=== PATIENT | female | born 2000 | race Caucasian/White ===

== ENCOUNTER 2019-10-08 14:28 | Outpatient (CLI) | payer OTHER, SELFPAY ==
--- NOTE | ~2019-10-08 | US_ITS ---
EXAMINATION: US pelvic complete w TV DATE: 10/08/2019 15:20 INDICATION: Pelvic pain Comparison:No prior studies for comparison. TECHNIQUE: Multiple transabdominal and endovaginal sonographic images of the pelvis performed. FINDINGS: The uterus measures 7.8 x 3.5 x 3.3 cm. The endometrial complex measures 1 cm. The right ovary measures 3.8 x 4 x 4.3 cm and the left ovary measures 2.6 x 2.7 x 3.6 cm. There is a right ovarian cyst measuring 2.4 cm. There are small follicles in each ovary. There is no free fluid in the pelvis. There are no abnormal masses seen on either side. IMPRESSION: 1. 2.4 cm right ovarian cyst. Reviewed, dictated and finalized at location A.
== END 2019-10-08 14:29 | disposition home or self-care (01) ==
PROVIDERS: Visit Provider Advanced Practice Midwife
DX: N83.201 Unspecified ovarian cyst, right side (principal)
CPT/HCPCS: 76830; 76856

== ENCOUNTER 2020-06-01 11:21 | Outpatient (CLI) | payer OTHER, MEDICAID, SELFPAY ==
--- NOTE | ~2020-06-01 | US_ITS ---
EXAMINATION: US OB limited w BPP DATE: 06/01/2020 12:46 INDICATION: Gestational diabetes, third trimester TECHNIQUE: Real-time pelvic ultrasound was performed. The interpreting radiologist was not present fo r the study. COMPARISON: None. FINDINGS: There is a single living fetus in vertex presentation. The placenta is anterior. heart rate is 124 beats per minute (bpm). The amniotic fluid index is 20.4 cm which is normal. Biophysical profile performed by the technologist: breathing (30 sec sustained breathing in 30 minutes): 2 out of 2 movement (3 gross body movements in 30 minutes): 2 out of 2 tone (one episode of xxyadby-wlgshikxf-bqlgsqs limb movement): 2 out of 2 Amniotic fluid pocket (2 cm): 2 out of 2 Total score: 8 out of 8 IMPRESSION: 1. Single living fetus in vertex presentation. 2. Biophysical profile 8 out of 8. 3. Normal amniotic fluid index. Reviewed, dictated and finalized at location A. ERER
[2020-06-01 13:03] VITALS: BP 109/50; PULSE 78
== END 2020-06-01 11:22 | disposition home or self-care (01) ==
LOC: ANHOBOP 11:31
PROVIDERS: PCP Family Medicine; Visit Provider Advanced Practice Midwife
DX: O24.419 Gestational diabetes mellitus in pregnancy, unspecified control (principal); Z3A.00 Weeks of gestation of pregnancy not specified
CPT/HCPCS: 59025; 76815; 76819

== ENCOUNTER 2020-06-22 12:16 | Outpatient (RCR) | payer OTHER, MEDICAID, SELFPAY ==
[2020-06-22 13:03] VITALS: BP 121/69; PULSE 85
== END 2020-07-12 07:24 | disposition home or self-care (01) ==
LOC: ANHOBOP 12:16
PROVIDERS: PCP Family Medicine; Visit Provider Obstetrics & Gynecology
DX: O24.419 Gestational diabetes mellitus in pregnancy, unspecified control (principal); Z3A.35 35 weeks gestation of pregnancy
CPT/HCPCS: 59025

== ENCOUNTER 2020-07-09 16:52 | Inpatient (IN) | payer OTHER, MEDICAID, SELFPAY ==
[2020-07-09] VITALS (11 sets, daily range): BP systolic 101–154; BP diastolic 48–91; PULSE 68–82; TEMP 36.9; BMI 43.4
--- NOTE | 2020-07-09 16:52 | LDADM ---
This patient, Yoana Ervin, was admitted to Labor/Delivery/Recovery 109 on 07/09/20 at 16:52. Plans for labor, pain management and were discussed with patient. Patient/family oriented to hospital policies and general routines including ID bracelet, bed and alarms, visiting hours, pain management, procedures, bathroom and other care routines, personal items, smoking policy, room service/diet and guest tray routines, infant security routines, and visiting hours. Patient/Family are encouraged to report perceived risks to care and to ask questions if they do not understand what they are told or what they should do. See OBIX for further documentation.
[2020-07-09 17:35] LABS: Glucose Point of Care 102 (65-105)
[2020-07-09 17:38] LABS: Basophils Percent Auto 0.2 % (0.2-1.2); Eosinophils Percent Auto 0.1 % (0-4.4); Immature Granulocyte Absolute 0.04 K/mm3 (0.00-0.031); Immature Granulocyte Percent A 0.4 % (0-0.5); Lymphocytes Absolute Auto 1.78 K/mm3 (0.9-3.2); Lymphocytes Percent Auto 17.4 % (18.3-44.2); Mean Corpuscular HGB Conc 32.4 g/dl (32-36); Mean Corpuscular Hemoglobin 24.8 pg (26-34); Mean Corpuscular Volume 76.4 fl (80-100); Mean Platelet Volume 11.5 fl (7.4-10.4); Monocytes Absolute Auto 0.5 K/mm3 (0.1-0.6); Monocytes Percent Auto 5.3 % (2.6-8.5); Neutrophils Absolute Auto 7.8 K/mm3 (1.3-6.7); Neutrophils Percent Auto 76.6 % (45.5-73.1); Platelet Count Result 199 k/mm3 (150-375); Red Blood Count 4.84 M/mm3 (4.2-5.4); White Blood Count 10.2 K/mm3 (4.5-10.0)
[2020-07-09] MEDS: DINOPROSTONE 10 MG VAG INSERT VAGINAL (17:45)
--- NOTE | 2020-07-09 17:48 | WPDANESEPP ---
Anes - Eval Pre Procedure Procedure: Labor epidural Date/Time: 07/09/20 17:48 Surgeon: John Preop Diagnosis: Abd pain with contractions Pre Op Diagnosis: IOL Patient Data Age: 19 Gender: F Height: 5 ft 4 in Weight: 115 kg Last Vital Signs Pulse 75 07/09/20 17:34 BP 154/91 H 07/09/20 17:34 Allergies Allergy/AdvReac Type Severity Reaction Status Date / Time No Known Allergies Allergy Verified 07/09/20 17:33 Home Medications Medication Instructions Recorded Confirmed Type PNV cmb#95-ferrous fumarate-FA 1 tablet PO DAILY 06/01/20 07/09/20 History [] edhyxtkijr-knfbxatlwaqwn-rjsw 1 cap PO DAILY PRN 06/01/20 07/09/20 History Laboratory Tests 07/09/20 07/09/20 07/09/20 17:11 17:11 17:11 WBC 10.2 K/mm3 H K/mm3 (4.5-10.0) RBC 4.84 M/mm3 M/mm3 (4.2-5.4) Hgb 12.0 g/dL g/dL (12.0-15.0) Hct 37.0 % % (37.0-47.0) MCV 76.4 fl L fl (80-100) MCH 24.8 pg L pg (26-34) MCHC 32.4 g/dl g/dl (32-36) RDW 14.0 % % (11.5-14.5) Plt Count 199 k/mm3 k/mm3 (150-375) MPV 11.5 fl H fl (7.4-10.4) Immature Gran % (Auto) 0.4 % % (0-0.5) Neut % (Auto) 76.6 % H % (45.5-73.1) Lymph % (Auto) 17.4 % L % (18.3-44.2) [place] % (Auto) 5.3 % % (2.6-8.5) Eos % (Auto) 0.1 % % (0-4.4) Baso % (Auto) 0.2 % % (0.2-1.2) Lymph # (Auto) 1.78 K/mm3 K/mm3 (0.9-3.2) [place] # (Auto) 0.5 K/mm3 K/mm3 (0.1-0.6) Eos # (Auto) 0.0 K/mm3 K/mm3 (0-0.3) Baso # (Auto) 0.0 K/mm3 K/mm3 (0.0-0.1) Abs Immat Gran (auto) 0.04 K/mm3 H K/mm3 (0.00-0.031) Absolute Neuts (auto) 7.8 K/mm3 H K/mm3 (1.3-6.7) Absolute Nucleated RBC 0.0 K/mm3 K/mm3 (0.0-0.012) Nucleated RBC % 0.0 % % (0.0-0.2) Sodium Potassium Chloride Carbon Dioxide Anion Gap BUN Creatinine Estim Creat Clear Calc Estimated GFR Glucose POC Capillary Glucose Uric Acid Cancelled Calcium Total Bilirubin AST ALT Alkaline Phosphatase Total Protein Albumin RPR Pending 07/09/20 07/09/20 17:11 17:25 WBC RBC Hgb Hct MCV MCH MCHC RDW Plt Count MPV Immature Gran % (Auto) Neut % (Auto) Lymph % (Auto) [place] % (Auto) Eos % (Auto) Baso % (Auto) Lymph # (Auto) [place] # (Auto) Eos # (Auto) Baso # (Auto) Abs Immat Gran (auto) Absolute Neuts (auto) Absolute Nucleated RBC Nucleated RBC % Sodium Pending Potassium Pending Chloride Pending Carbon Dioxide Pending Anion Gap Pending BUN Pending Creatinine Pending Estim Creat Clear Calc Pending Estimated GFR Pending Glucose Pending POC Capillary Glucose 102 mg/dl mg/dl (65-105) Uric Acid Pending Calcium Pending Total Bilirubin Pending AST Pending ALT Pending Alkaline Phosphatase Pending Total Protein Pending Albumin Pending RPR Patient hx anesthesia problems: none Family hx anesthesia problems: none PMFSH Past Medical History Medical History Hypertension Obesity and not yet delivered Vapes nicotine containing substance Social History Social History Years smoked: 1 Smoking status: Current every day smoker Tobacco type: e-cigarettes/vaping Substance use: never Gender identity (if verbalized by the patient):
[2020-07-09 17:51] LABS: Alanine Aminotransferase 10 U/L (4-35); Albumin Level 3.4 g/dL (3.5-5.1); Alkaline Phosphatase 173 U/L (38-126); Anion Gap 7 mmol/L (8-16); Aspartate Amino Transferase 18 U/L (14-36); Bilirubin,Total 0.3 mg/dL (0.2-1.3); Blood Urea Nitrogen 8 mg/dL (7-17); Carbon Dioxide 22 mmol/L (22-30); Chloride 107 mmol/L (98-107); Estimated CRCL calculation 185 ml/min; Estimated Glomerular Filt Rate > 60; Glucose 110 mg/dL (65-105); Potassium 3.7 mmol/L (3.4-5.0); Sodium 136 mmol/L (137-145); Uric Acid 4.1 mg/dL (2.5-7.5)
[2020-07-09 23:58] LABS: Glucose Point of Care 108 (65-105)
[2020-07-10] VITALS (198 sets, daily range): BP systolic 93–153; BP diastolic 35–98; PULSE 55–128; RESP 20; TEMP 36.3–37.2; O2SAT 94–100
[2020-07-10 05:48] LABS: Glucose Point of Care 138 (65-105)
[2020-07-10] MEDS: OXYTOCIN 30 UNITS/NS 500 ML 30 UNITS/500 ML BAG 6 UNITS IV CONT (06:23)
[2020-07-10] MEDS: LACTATED RINGERS 1,000 ML 125 ML IV CONT ×3 (06:23→19:16)
[2020-07-10 07:00] LABS: Glucose Point of Care 131 (65-105)
--- NOTE | 2020-07-10 07:57 | WPDOBADMIT ---
Obstetrics - Admit Note Admission Note: 19b y/o G1 @ 38w1d here for induction of labor for GHTN. has also been complicated by GDM which is diet controlled. Cervix 1.5/60/-2 AROM moderate amount of clear odorless fluid. record reviewed. No pertinent additions to the history and/or any subsequent changes in the physical findings that are not consistent with the expected course of the were found. Additions to the history and/or subsequent changes in the physical findings follow. None.
[2020-07-10 09:08] LABS: Glucose Point of Care 76 (65-105)
[2020-07-10 11:29] LABS: Glucose Point of Care 82 (65-105)
[2020-07-10 12:07] LABS: Rapid Plasma Reagin Non-Reactive (NonReactive)
[2020-07-10] MEDS: fentaNYL CITRATE INJ (*CRX) 100 MCG/2 ML VIAL 50 MCG IV PUSH ×2 (13:21→14:28)
[2020-07-10 13:27] LABS: Glucose Point of Care 83 (65-105)
[2020-07-10 15:45] LABS: Glucose Point of Care 68 (65-105)
[2020-07-10 17:16] LABS: Glucose Point of Care 75 (65-105)
[2020-07-10] MEDS: LORATADINE 10 MG TABLET PO (19:16)
[2020-07-10] MEDS: ACETAMINOPHEN 500 MG TABLET 1000 MG PO (19:17)
[2020-07-10] MEDS: ONDANSETRON INJ 4 MG/2 ML VIAL IV PUSH (20:31)
[2020-07-10 21:09] LABS: Glucose Point of Care 62 (65-105)
[2020-07-11] VITALS (151 sets, daily range): BP systolic 61–163; BP diastolic 37–104; PULSE 53–204; RESP 13–20; TEMP 36.5–39.1; O2SAT 93–100
[2020-07-11 01:07] LABS: Glucose Point of Care 86 (65-105)
[2020-07-11] MEDS: AMPICILLIN 2 GM/NS 100 ML 2 GM/100 ML BAG IVPB (01:39)
[2020-07-11 03:13] LABS: Glucose Point of Care 82 (65-105)
[2020-07-11] MEDS: OXYTOCIN 30 UNITS/NS 500 ML 30 UNITS/500 ML BAG 22 UNITS IV CONT (05:01)
[2020-07-11] MEDS: LACTATED RINGERS 1,000 ML 125 ML IV CONT ×2 (05:02→08:30)
[2020-07-11 05:12] LABS: Glucose Point of Care 85 (65-105)
[2020-07-11] MEDS: AMPICILLIN 1 GM/NS 50 ML 1 GM/50 ML BAG IVPB ×5 (05:35→23:03)
--- NOTE | 2020-07-11 07:24 | PM.IMHP ---
H&P: HPI History of Present Illness Date/Time: 07/11/20 07:24 Chief complaint: IOL Narrative: Yoana Ervin is a 19 year old female who was admitted for induction of labor for Gestational hypertension. has also been complicated by GDM and polyhydramnios. PMFSH Past Medical History Medical History Hypertension Obesity and not yet delivered Vapes nicotine containing substance Social History Social History Years smoked: 1 Smoking status: Current every day smoker Tobacco type: e-cigarettes/vaping Substance use: never Gender identity (if verbalized by the patient): Female Spiritual care concerns: No Meds Home Medications and Allergies Home Medications Medication Instructions Recorded Confirmed Type PNV cmb#95-ferrous fumarate-FA 1 tablet PO DAILY 06/01/20 07/09/20 History [] pgmnndnvuu-smrlbcelburje-oiox 1 cap PO DAILY PRN 06/01/20 07/09/20 History Allergies Allergy/AdvReac Type Severity Reaction Status Date / Time No Known Allergies Allergy Verified 07/09/20 17:33 Vital Signs Vital Signs - 24 hr 07/10/20 07:31 07/10/20 07:46 07/10/20 08:00 Temperature 97.4 F L Pulse Rate 67 74 Respiratory Rate Blood Pressure 141/83 H 133/73 Pulse Oximetry 07/10/20 08:01 07/10/20 08:16 07/10/20 08:31 Temperature Pulse Rate 69 67 64 Respiratory Rate Blood Pressure 134/84 147/75 H 140/81 Pulse Oximetry 07/10/20 08:46 07/10/20 09:00 07/10/20 09:17 Temperature 97.7 F Pulse Rate 66 66 Respiratory Rate Blood Pressure 147/85 H 153/80 H Pulse Oximetry 07/10/20 09:31 07/10/20 10:00 07/10/20 10:16 Temperature Pulse Rate 59 L 82 83 Respiratory Rate Blood Pressure 139/67 140/76 135/79 Pulse Oximetry 07/10/20 10:31 07/10/20 10:46 07/10/20 11:00 Temperature 97.4 F L Pulse Rate 91 82 Respiratory Rate Blood Pressure 153/98 H 148/82 H Pulse Oximetry 07/10/20 11:16 07/10/20 11:31 07/10/20 11:56 Temperature Pulse Rate 88 85 85 Respiratory Rate Blood Pressure 128/68 132/83 134/75 Pulse Oximetry 07/10/20 12:01 07/10/20 12:16 07/10/20 12:30 Temperature Pulse Rate 85 83 88 Respiratory Rate Blood Pressure 139/77 124/67 141/86 H Pulse Oximetry 07/10/20 12:46 07/10/20 13:01 07/10/20 13:16 Temperature Pulse Rate 80 98 70 Respiratory Rate Blood Pressure 148/80 H 149/81 H 134/62 Pulse Oximetry 07/10/20 13:31 07/10/20 13:46 07/10/20 14:00 Temperature 97.6 F Pulse Rate 70 72 Respiratory Rate Blood Pressure 124/59 L 130/58 L Pulse Oximetry 07/10/20 14:01 07/10/20 14:03 07/10/20 14:08 Temperature Pulse Rate 75 Respiratory Rate Blood Pressure 140/73 Pulse Oximetry 94 100 07/10/20 14:13 07/10/20 14:18 07/10/20 14:23 Temperature Pulse Rate Respiratory Rate Blood Pressure Pulse Oximetry 99 100 100 07/10/20 14:28 07/10/20 14:33 07/10/20 14:38 Temperature Pulse Rate Respiratory Rate Blood Pressure Pulse Oximetry 100 96 97 07/10/20 14:43 07/10/20 14:45 07/10/20 14:46 Temperature Pulse Rate 67 Respiratory Rate Blood Pressure 149/86 H Pulse Oximetry 97 100 07/10/20 14:50 07/10/20 14:55 07/10/20 14:59 Temperature Pulse Rate 62 64 Respiratory Rate Blood Pressure 115/55 L 134/63 Pulse Oximetry 100 99 07/10/20 15:00 07/10/20 15:01 07/10/20 15:03 Temperature 97.9 F Pulse Rate 77 85 Respiratory Rate Blood Pressure 114/62 119/57 L Pulse Oximetry 99 07/10/20 15:05 07/10/20 15:06 07/10/20 15:07 Temperature Pulse Rate 82 83 Respiratory Rate Blood Pressure 93/35 L 95/52 L Pulse Oximetry 99 98 07/10/20 15:08 07/10/20 15:10 07/10/20 15:12 Temperature Pulse Rate 72 69 92 Respiratory Rate Blood Pressure 107/52 L 104/41 L 117/59 L Pulse Oximetry 99 07/10/20 15:16 07/10/20 15:1
[2020-07-11 07:50] LABS: Glucose Point of Care 72 (65-105)
--- NOTE | 2020-07-11 08:54 | PM.OBPNVD ---
OB - PN: Subj Subjective Date/time seen: 07/11/20 08:54 Narrative: PT known to me, preg complicated by GDM and PIH. IOL 38 weeks for PIH, now FTP at 4-5 cm over many hours. Will proceed with CS. Discussed POC with patient and SO, consented after discussing RBA. OB - PN: Obj Data Labs CBC & Chem 7: 07/09/20 17:11 07/09/20 17:11 Labs: Laboratory Results - last 24 hr 07/09/20 07/10/20 07/10/20 17:11 08:57 11:15 POC Capillary Glucose 76 82 RPR Non-reactive 07/10/20 07/10/20 07/10/20 13:24 15:41 17:14 POC Capillary Glucose 83 68 75 RPR 07/10/20 07/11/20 07/11/20 21:00 01:00 03:05 POC Capillary Glucose 62 L 86 82 RPR 07/11/20 07/11/20 05:00 07:48 POC Capillary Glucose 85 72 RPR OB - PN A/P Time Spent With Patient Time: Total time spent is greater than 50% in coordination of care (as documented) at patient's floor/unit and/or counseling patient:
--- NOTE | 2020-07-11 08:55 | P.OP_ITS ---
Procedure Note - Detailed Date of procedure: 07/11/20 Pre-op diagnosis: IOL failure to progress at 38 weeks, PIH, GDM Post-op diagnosis: same Procedure performed: primary LTCS Description of procedure: see delivery note Implants: none Anesthesia: spinal Surgeon: Aisha Zepeda MD Assistant Loan Processor: see delivery record Estimated blood loss (mL): 685 Drains: No Packing: No Pathology: yes Complications: No immediate complications Condition: stable Disposition: floor
--- NOTE | 2020-07-11 08:56 | P.PCNOB_ITS ---
OB - Delivery Note Procedure Procedure: Procedures Operation Date: 07/11/20 09:00 <No data on this case meets the specified criteria> Route of delivery: Specimen: Yes (placenta) Anesthesia type: Spinal Disposition: floor Complications: none Narrative: The patient was taken to the OR and received spinal anesthesia. She was placed in dorsal supine position with left lateral tilt. SCDs and cohen were placed. She was prepped and draped in the normal sterile fashion. A Pfannensteil skin incision was made and carried through to the underlying layer of fascia. The fascia was incised in the midline and then extended laterally using Sousa scissors. The muscles were in the midline and the peritoneum was entered bluntly. The peritoneal incision was extended inferiorly and superiorly with care to avoid the bladder. The bladder blade was then inserted, the vesicouterine peritoneum was grasped, incised with Metzenbaum scissors, and a bladder flap created. The bladder blade was reinserted. A low transverse uterine incision was made with a scalpel and extended with bandage scissors. Fluid was noted to be clear. The head was delivered, followed by the remainder of the baby. The baby's oropharynx was suctioned. After 30 seconds, the cord was clamped and cut and the was handed off. Cord blood was obtained and the placenta was then removed manually. The uterus was exteriorized. A moist lap sponge was used to curette the endomet rium. The uterine incision was then closed with one layer of 0-Vicryl in a running, locking fashion. Good hemostasis was noted. The posterior cul de sac was irrigated with normal saline and cleared of all clot and debris. The uterus was returned to the abdomen. Both lateral gutters were then irrigated. The rectus muscles were inspected and found to be hemostatic. The fascia was reapproximated using 0-Vicryl in running fashion. The subcutaneous tissue was irrigated with normal saline and made hemostatic with Bovie electrocautery. The subcutaneous tissue was reapproximated with a layer of running 2-0 plain gut. The skin was then closed with 4-0 Vicryl in a subcuticular fashion. Steri strips and a bandage were applied. The uterus was evacuated. The patient tolerated the procedure very well. All counts were correct. She was taken to the recovery room in good condition. [place] Baby Weeks of gestation at delivery: 38
[2020-07-11] MEDS: ceFAZolin 2 GM/D5W 50 ML 2 GM/50 ML BAG IVPB (08:57)
--- NOTE | 2020-07-11 09:17 | PCWOUND ---
WOCN NOTE Received wound care referral in error. Spoke to day RN and she reports patient does not have any pressure wounds.
[2020-07-11] MEDS: CLINDAMYCIN 900 MG/D5W 50 ML 900 MG/50 ML PIGGYBACK 50 MG IVPB ×2 (10:59→19:50)
[2020-07-11] MEDS: KETOROLAC 30 MG/ML VIAL (*BKC) IV PUSH (11:40)
--- NOTE | 2020-07-11 12:15 | PC.NURSE ---
Patient transferred to post room #284 per stretcher from labor and delivery. Support person present. Oriented to unit, room, information board, rooming in, admission packet and security measures. Patient verbalizes understanding.
[2020-07-11] MEDS: GENTAMICIN 60 MG/50 ML NS 60 MG/50 ML BAG 100 MG IVPB ×2 (12:25→21:06)
[2020-07-11] MEDS: ACETAMINOPHEN 325 MG TABLET 650 MG PO (16:07)
[2020-07-11] MEDS: DEXTROSE 5%/0.45% SOD CHL 1,000 ML 125 ML IV CONT (17:14)
[2020-07-11] MEDS: IBUPROFEN 600 MG TABLET PO (20:37)
[2020-07-11] MEDS: HYDROcodone/acetaminophen (*CRX) 5-325 MG TABLET 1 TAB PO (22:25)
[2020-07-12] MEDS: AMPICILLIN 1 GM/NS 50 ML 1 GM/50 ML BAG IVPB ×2 (03:09→07:06)
[2020-07-12] MEDS: CLINDAMYCIN 900 MG/D5W 50 ML 900 MG/50 ML PIGGYBACK 50 MG IVPB (04:05)
[2020-07-12 05:05] VITALS: BP 115/62; PULSE 66; RESP 17; TEMP 36.5
[2020-07-12] MEDS: GENTAMICIN 60 MG/50 ML NS 60 MG/50 ML BAG 100 MG IVPB (05:08)
[2020-07-12 05:34] LABS: Basophils Percent Auto 0.2 % (0.2-1.2); Eosinophils Absolute Auto 0.1 K/mm3 (0-0.3); Eosinophils Percent Auto 0.4 % (0-4.4); Hematocrit 27.9 % (37.0-47.0); Hemoglobin 9.1 g/dL (12.0-15.0); Immature Granulocyte Absolute 0.09 K/mm3 (0.00-0.031); Immature Granulocyte Percent A 0.6 % (0-0.5); Lymphocytes Absolute Auto 2.02 K/mm3 (0.9-3.2); Lymphocytes Percent Auto 12.8 % (18.3-44.2); Mean Corpuscular HGB Conc 32.6 g/dl (32-36); Mean Corpuscular Hemoglobin 24.8 pg (26-34); Mean Platelet Volume 12.5 fl (7.4-10.4); Monocytes Percent Auto 6.5 % (2.6-8.5); Neutrophils Absolute Auto 12.6 K/mm3 (1.3-6.7); Neutrophils Percent Auto 79.5 % (45.5-73.1); Platelet Count Result 173 k/mm3 (150-375); Red Blood Count 3.67 M/mm3 (4.2-5.4); Red Cell Distribution Width 14.1 % (11.5-14.5); White Blood Count 15.8 K/mm3 (4.5-10.0)
[2020-07-12] MEDS: POLYSACCHARIDE IRON COMPLEX 150 MG CAPSULE PO ×2 (07:04→16:07)
[2020-07-12] MEDS: DOCUSATE SODIUM 100 MG CAPSULE PO ×2 (07:05→16:07)
[2020-07-12] MEDS: HYDROcodone/acetaminophen (*CRX) 10-325 MG TABLET 1 TAB PO ×3 (07:05→16:07)
[2020-07-12] MEDS: IBUPROFEN 600 MG TABLET PO ×2 (07:05→16:07)
--- NOTE | 2020-07-12 07:40 | PM.OBPNVD ---
OB - PN: Subj Subjective Date/time seen: 07/12/20 07:40 Patient comments: no complaints baby status: doing well and NICU [place] feeding status: exclusively bottle feeding Narrative: POD 1 from primary CS. Doing well. Normal lochia. Eating, ambulating, cohen out. Has voided. NO fever since intraop. On triples. OB - PN: Obj Data Labs CBC & Chem 7: 07/12/20 05:07 07/09/20 17:11 Labs: Laboratory Results - last 24 hr 07/11/20 07/12/20 07:48 05:07 WBC 15.8 H RBC 3.67 L Hgb 9.1 L Hct 27.9 L MCV 76.0 L MCH 24.8 L MCHC 32.6 RDW 14.1 Plt Count 173 MPV 12.5 H Immature Gran % (Auto) 0.6 H Neut % (Auto) 79.5 H Lymph % (Auto) 12.8 L [place] % (Auto) 6.5 Eos % (Auto) 0.4 Baso % (Auto) 0.2 Lymph # (Auto) 2.02 [place] # (Auto) 1.0 H Eos # (Auto) 0.1 Baso # (Auto) 0.0 Abs Immat Gran (auto) 0.09 H Absolute Neuts (auto) 12.6 H Absolute Nucleated RBC 0.0 Nucleated RBC % 0.0 POC Capillary Glucose 72 OB - PN A/P Plan day: 1 Plan: routine care Comments: Continue triple antibiotics until 24 hours afebrile (later this am). Wants circ, baby has partial natural circ, ped wants to eval prior to circ. May do tomorrow. Routine post op care. Time Spent With Patient Time: Total time spent is greater than 50% in coordination of care (as documented) at patient's floor/unit and/or counseling patient: Exam Narrative: Exam Narrative: NAD abdomen soft, appropriately tender, incision bandaged Extremities nontender with 1+ edema
[2020-07-12 07:45] VITALS: BP 125/67; PULSE 71; RESP 18; TEMP 36.4; O2SAT 98
[2020-07-12 12:30] VITALS: TEMP 36.6
--- NOTE | 2020-07-12 13:58 | WPDANLDPN2 ---
Anes-Prog Note L&D Date/Time: 07/12/20 13:58 Comfortable throughout: labor and delivery Neuraxial method: epidural Epidural/Spinal procedure site: clean & non-tender Neuro status: Neuro function grossly intact. Cardiovascular status: normal Respiratory status: normal Airway patency: baseline Mental status: baseline Post-Op hydration status: normal Vital Signs: Last Vital Signs Temp 36.6 C 07/12/20 12:30 Pulse 71 07/12/20 07:45 Resp 18 07/12/20 07:45 BP 125/67 07/12/20 07:45 Pulse Ox 98 07/12/20 07:45 Pain score (VAS): 0/10. Patient resting in bed at time of assessment, appears comfortable. Support person at bedside. I/O: Intake & Output 07/11/20 07/12/20 07/12/20 23:59 07:59 15:59 Intake Total 1500 2100 120 Output Total 175 4450 Balance 1325 -2350 120 Post-procedural complaints: none Patient feedback: Patient satisfied with anesthetic care.
--- NOTE | 2020-07-12 13:58 | WPDANLDNPN2 ---
Anes-Prog Note L&D-Neuraxial Date/Time: 07/12/20 13:58 Neuraxial medications: epidural PF morphine Opiod-related complaints: none Patient feedback: Patient satisfied with post-operative pain management.
[2020-07-12] MEDS: SIMETHICONE 80 MG TAB.CHEW PO (16:10)
[2020-07-12 20:16] VITALS: BP 140/87; PULSE 96; RESP 15; TEMP 36.9
[2020-07-13] MEDS: IBUPROFEN 600 MG TABLET PO ×2 (00:35→07:58)
[2020-07-13] MEDS: HYDROcodone/acetaminophen (*CRX) 10-325 MG TABLET 1 TAB PO ×2 (00:35→12:33)
--- NOTE | 2020-07-13 07:46 | P.PNOB_ITS ---
OB - PN: Subj Subjective Date/time seen: 07/13/20 07:46 Patient comments: no complaints, pain well controlled, incisional pain, tolerating diet and flatus present OB - PN: Obj Data Labs CBC & Chem 7: 07/12/20 05:07 07/09/20 17:11 OB - PN A/P Plan day: 2 Plan: routine care Comments: POD#2 LTCS - no problems, to d/c Time Spent With Patient Time: Total time spent is greater than 50% in coordination of care (as d ocumented) at patient's floor/unit and/or counseling patient: Exam Const: General: comfortable, no acute distress and alert Resp: Effort & Inspection: normal respiratory effort Auscultation: no crackles, no rales and no rhonchi Cardio: Rate: regular rate Heart sounds: no click, no murmurs and no rubs GI: Inspection: non-distended GI Palp: No Tenderness to palpation present (GI) Auscultation: normal bowel sounds Other: Incision - CDI Extrem: General: normal to inspection, no pedal edema and no calf tenderness
--- NOTE | 2020-07-13 07:48 | PM.OBDSVD ---
DS: Admitting Diagnosis Admitting Diagnosis Admitting Diagnosis: labor OB - DS: Summary OB Procedures : None OB Procedures Intrapartum: OB Procedures: : None Peripartum Data Delivery Method: Section Procedures: Procedures Operation Date: 07/11/20 09:00 Actual Procedures Side Surgeon p Section Aisha Zepeda MD complications: none Status at Discharge Functional status at discharge: independent ambulation Time Spent with Patient Time attestation: Total time spent providing and/or coordinating discharge services: Discharge Plan Discharge Patient Disposition: Home Health Service Diet: regular Patient Instructions: Antibiotic Form Stand Alone Forms: General Discharge Information Follow-up/Referrals: Xander Lopez MD [Physician] - Discharge Medications: New hydrocodone-acetaminophen 5-325 mg tablet 1 - 2 tablet PO Q4H PRN (Reason: pain) Qty: 25 RF: 0 Continued bkiololjed-hksqrsqksltzk-xmaf 50-300-40 mg capsule 1 cap PO DAILY PRN (Reason: Migraine Headache) RF: 0 PNV cmb#95-ferrous fumarate-FA [] 28 mg iron- 800 mcg Tablet 1 tablet PO DAILY RF: 0 Date of admission: 07/09/20 16:52 Primary Care Provider: MelissaMonet Admitting Provider: Xander Lopez Attending physician on admission: Xander Lopez Condition: Stable
[2020-07-13 07:50] VITALS: BP 149/82; PULSE 86; RESP 18; TEMP 36.9; O2SAT 100
[2020-07-13] MEDS: DOCUSATE SODIUM 100 MG CAPSULE PO (07:58)
[2020-07-13] MEDS: TETANUS,DIPHTHERIA,AC PERTUSSIS ADULT (0.5 ML) BOOSTRIX IM (07:58)
[2020-07-13] MEDS: POLYSACCHARIDE IRON COMPLEX 150 MG CAPSULE PO (07:58)
[2020-07-14 08:47] VITALS: BP 146/89; PULSE 82; RESP 20; TEMP 37.1; O2SAT 99
== END 2020-07-13 13:21 | disposition home or self-care (01) | DRG 787 ==
LOC: ANHLDR 07-11 08:39 → ANHOB2 07-11 12:29
PROVIDERS: Obstetrics & Gynecology; Admitting Provider Obstetrics & Gynecology; PCP Family Medicine; Visit Provider Obstetrics & Gynecology
PROC: 10D00Z1 Extraction of Products of Conception, Low, Open Approach (ICD-10-PCS; CPT 59514; principal; 2020-07-11 09:00)
DX: O13.4 Gestational [pregnancy-induced] hypertension without significant proteinuria, complicating childbirth (principal); O75.2 Pyrexia during labor, not elsewhere classified; Z37.0 Single live birth; Z3A.38 38 weeks gestation of pregnancy; Z23 Encounter for immunization; O99.214 Obesity complicating childbirth; E66.9 Obesity, unspecified; O99.334 Smoking (tobacco) complicating childbirth; F17.290 Nicotine dependence, other tobacco product, uncomplicated; O24.420 Gestational diabetes mellitus in childbirth, diet controlled; O40.3XX0 Polyhydramnios, third trimester, not applicable or unspecified; O62.2 Other uterine inertia; O61.9 Failed induction of labor, unspecified; O36.8330 Maternal care for abnormalities of the fetal heart rate or rhythm, third trimester, not applicable or unspecified
CPT/HCPCS: 36415; 80053; 84550; 85025; 86592; 86850; 86900; 86901; 90471; 90653; 90715; A9270; G0008; J0131; J0290; J0690; J1580; J1885; J2274; J2405; J2590; J2795; J3010; J7120

== ENCOUNTER 2023-01-03 10:02 | Outpatient (CLI) | payer OTHER, MEDICAID, SELFPAY ==
--- NOTE | ~2023-01-03 | CT_ITS ---
CT scan of the Neck Technique: 2.5 mm axial scans were obtained through the neck after intravenous administration of 75 c c Omnipaque 350. Coronal and sagittal reconstructions of the neck were obtained. Dose reduction techn ique was used on this scan by utilizing automated exposure control and iterative reconstruction techn ique. The dose-length product (DLP) was 596.94 mGy-cm. Clinical History: Headache, migraine Findings: There is no evidence of any significant cervical lymphadenopathy. Several small, nonenlarged jugulo- digastric and posterior cervical lymph nodes are noted bilaterally. Parapharyngeal spaces appear norm al bilaterally. The parotid and submandibular glands appear normal. The pharyngeal mucosal spaces appear normal. No soft tissue masses are seen in the neck. The thyroid gland appears normal. Images of the lung apices reveal no abnormalities. There is probabl e residual thymic tissue in the anterior mediastinum. Impression: No significant abnormalities noted. Reviewed, dictated and finalized at [facility]. Impression: No significant abnormalities noted.
== END 2023-01-03 10:03 | disposition home or self-care (01) ==
PROVIDERS: PCP Family Medicine; Visit Provider Nurse Practitioner Obstetrics & Gynecology
DX: G43.909 Migraine, unspecified, not intractable, without status migrainosus (principal)
CPT/HCPCS: 70491; Q9967

== ENCOUNTER 2023-09-16 14:49 | Emergency (ER) | payer OTHER, SELFPAY ==
[2023-09-16 15:00] VITALS: BP 140/70; PULSE 91; RESP 20; TEMP 37.4; O2SAT 100
--- NOTE | 2023-09-16 15:59 | ED.URI ---
HPI - URI/Sore Throat General Chief Complaint: Upper Respiratory Infection Stated Complaint: chest congestion/throat Time Seen by Provider: 09/16/23 15:40 Source: patient, RN notes reviewed and old records reviewed Mode of arrival: ambulatory Limitations: no limitations History of Present Illness HPI Narrative: 22 uear old female who presents to express care with complaints of 4 days of cough, chest congestion, ear pressure, sore throat with some low grade fevers. Patient reports that she is 28 weeks and has been taking Tylenol and Mucinex for her symptoms. Patient reports that she did call her OB office in regards to symptoms and was not able to be seen was told to go to PCP or go to urgent care. MD elicited complaint: cough, sore throat and other (chest congestion and ear pain/pressure) Onset (ago): day(s) (4) Pain scale (0-10): 4 Treatments prior to arrival: acetaminophen and other (Mucinex) Related Data Home Medications Medication Instructions Recorded Confirmed vit no.95-ferrous 1 tablet PO DAILY 06/01/20 09/16/23 fumarate 28 mg-folic acid 800 mcg tablet () levothyroxine 100 mcg tablet 100 mcg PO DAILY 09/16/23 09/16/23 metformin 500 mg tablet 500 mg PO HS 09/16/23 09/16/23 Allergies Allergy/AdvReac Type Severity Reaction Status Date / Time No Known Allergies Allergy Verified 07/09/20 17:33 Review of Systems Review of Systems: CONSTITUTIONAL: Reports malaise, chills, sweats, low grade fever. EYES: Denies visual changes, redness, or discharge. ENT: Reports rhinorrhea, congestion, sinus pain, left otalgia and sore throat. CARDIOVASCULAR: Denies chest pain, palpitations, or edema. RESPIRATORY: Reports cough.? Denies dyspnea. GASTROINTESTINAL: Denies abdominal pain, nausea, vomiting, diarrhea SKIN: Denies rash or itching. MUSCULOSKELETAL: Denies myalgia. NEUROLOGIC: Denies headache. All systems reviewed & are unremarkable except as noted in HPI and below PMFSH Past Medical History Medical History Gestational diabetes Hypertension Obesity and not yet delivered Vapes nicotine containing substance Social History Social History (Updated 09/18/23 @ 10:15 by Corinne Beal NP) Years smoked: 1 Smoking status: Former smoker Tobacco type: e-cigarettes/vaping Substance use: never Gender identity (if verbalized by the patient): Female Spiritual care concerns: No Comments At time of signature, agree with nursing past medical, surgical, social and family history. There is no relevant family history pertinent to the presenting complaint Exam Narrative: GENERAL: Well-appearing, well-nourished, and in no acute distress. HEAD: Normocephalic EYES: PERRLA, conjunctivae clear ENT: Nares clear, turbinates edematous and erythematous, yellowish discharge. Mucous membranes moist. Left TM red, Right. TM pearly lyn with dull light reflex bilaterally; no tragal tenderness. Oropharynx erythematous without lesions. Tonsils not enlarged and without exudate, no drooling, no hoarseness, no trismus, uvula midline.post nasal discharge NECK: Supple. No lymphadenopathy CHEST: Clear to auscultation, breath sounds equal. No wheezing, rhonchi, rales, or stridor. No respiratory distress, speaks in full sentences.cough noted SAO2 100% on room air HEART: Regular rate and rhythm. No murmur heard. SKIN: Warm, dry, no rash. NEURO: Alert and oriented x3. PSYCH: Normal mood and affect Course Course Emergency Course: Patient is aware of diagnosis, understands and agrees to treatment plan.? Anticipatory guidance given.? Patient agrees to follow-up as directed and is aware of reasons to seek care at the emergency department. Portions of this record may have been created with voice recognition software Level of Care: Express Care Visit Vital Signs Vital signs: Vital Signs Temperature 37.4 C 09/16/23 15:00 Pulse Rate 91 09/16/23 15:00
== END 2023-09-16 16:10 | disposition home or self-care (01) ==
PROVIDERS: Emergency Provider Registered Nurse; PCP Family Medicine
DX: H66.92 Otitis media, unspecified, left ear (principal); O99.891 Other specified diseases and conditions complicating pregnancy; Z3A.28 28 weeks gestation of pregnancy; Z20.822 Contact with and (suspected) exposure to COVID-19; O24.415 Gestational diabetes mellitus in pregnancy, controlled by oral hypoglycemic drugs; O16.2 Unspecified maternal hypertension, second trimester; Z87.891 Personal history of nicotine dependence
CPT/HCPCS: 87081; 87426; 87804; 87880; 99213; G0463

== ENCOUNTER 2023-10-25 10:58 | Emergency (ER) | payer OTHER, SELFPAY ==
[2023-10-25 11:05] VITALS: BP 136/77; PULSE 104; RESP 20; TEMP 36.7; O2SAT 100
--- NOTE | 2023-10-25 11:21 | ED.URI ---
HPI - URI/Sore Throat General Chief Complaint: Upper Respiratory Infection Stated Complaint: Congestion History of Present Illness HPI Narrative: Pt is a 23 y/o female, 35 weeks , presents to with 24 hour hx of ear pressure bilaterally, sinus pressure and a slight cough without associated fevers, chills, sore throat or NVDC. She has no related concerns, endorses good movement and she has no known sick contacts. She is taking Tylenol and Robitussin without relief. She denies any other complaints. Related Data Home Medications Medication Instructions Recorded Confirmed vit no.95-ferrous 1 tablet PO DAILY 06/01/20 10/25/23 fumarate 28 mg-folic acid 800 mcg tablet () levothyroxine 100 mcg tablet 100 mcg PO DAILY 09/16/23 10/25/23 metformin 500 mg tablet 500 mg PO HS 09/16/23 10/25/23 Allergies Allergy/AdvReac Type Severity Reaction Status Date / Time No Known Allergies Allergy Verified 10/25/23 11:10 Review of Systems Constitutional: Comments: no fevers or chills ENT: Comments: refer to [facility] Past Medical History Medical History Gestational diabetes Hypertension Obesity and not yet delivered Vapes nicotine containing substance Social History Social History (Updated 09/18/23 @ 10:15 by Corinne Beal NP) Years smoked: 1 Smoking status: Former smoker Tobacco type: e-cigarettes/vaping Substance use: never Gender identity (if verbalized by the patient): Female Spiritual care concerns: No Exam Const: General: healthy appearing, no acute distress and alert Nutritional Appearance: well nourished Orientation/consciousness: patient oriented x3 Limitations: no limitations HENMT: Head: normal to inspection Ears: external ears normal and TM abnormal other (tympanosclerosis bilaterally, retracted TM with serous pattern) Face and sinus: normal facial exam and sinuses nontender Throat: posterior oropharynx normal and uvula midline Eyes: Conjunctivae: conjunctivae normal Pupils: Equal, round and reactive pupils present EOM: EOMs intact bilaterally Neck: Neck: normal visual inspection Resp: Effort & Inspection: normal respiratory effort Auscultation: clear to auscultation bilaterally Cardio: Rate: regular rate (HR is 90 at PMI) Rhythm: regular rhythm GI: Auscultation: normal bowel sounds Other: gravid uterus Skin: General skin exam: normal color Rashes: no rashes Wounds: no wounds Neuro: General: patient oriented x3 and moves all extremities Cranial nerves: Yes Nystagmus not present Gait exam (Neuro): Normal gait present Extrem: General: normal to inspection Course Course Emergency Course: pt's symptoms and exam are consistent with viral URI and serous OM, will treat with short steroid course, pt monitors her blood sugars with gestational diabetes hx and she is well controlled. FU with PCP or OBGYN without fail. Pt is agreeable with plan. Level of Care: Express Care Visit ([id number]) Vital Signs Vital signs: Vital Signs Temperature 36.7 C 10/25/23 11:05 Pulse Rate 104 H 10/25/23 11:05 Respiratory Rate 20 10/25/23 11:05 Blood Pressure 136/77 10/25/23 11:05 Pulse Oximetry 100 10/25/23 11:05 Oxygen Delivery Room Air 10/25/23 11:05 Temperature 36.7 C 10/25/23 11:05 Pulse Rate 104 H 10/25/23 11:05 Respiratory Rate 20 10/25/23 11:05 Blood Pressure 136/77 10/25/23 11:05 Pulse Oximetry 100 10/25/23 11:05 Oxygen Delivery Room Air 10/25/23 11:05 MDM - URI/Sore Throat MDM Narrative Medical decision making narrative: pt's symptoms and exam are consistent with viral URI and serous OM, will treat with short steroid course, pt monitors her blood sugars with gestational diabetes hx and she is well controlled. FU with PCP or OBGYN without fail. Pt is agreeable with plan. Differential Diagnosis Differential diagnosis: Likely upper respiratory infection, otit
== END 2023-10-25 11:40 | disposition home or self-care (01) ==
PROVIDERS: Emergency Provider Nurse Practitioner Family; PCP Family Medicine
DX: O99.513 Diseases of the respiratory system complicating pregnancy, third trimester (principal); Z3A.35 35 weeks gestation of pregnancy; J06.9 Acute upper respiratory infection, unspecified; O99.891 Other specified diseases and conditions complicating pregnancy; H65.03 Acute serous otitis media, bilateral; O24.415 Gestational diabetes mellitus in pregnancy, controlled by oral hypoglycemic drugs; O99.333 Smoking (tobacco) complicating pregnancy, third trimester; F17.290 Nicotine dependence, other tobacco product, uncomplicated; O16.3 Unspecified maternal hypertension, third trimester
CPT/HCPCS: 99213; G0463

== ENCOUNTER 2023-11-22 12:09 | Outpatient (CLI) | payer OTHER, MEDICAID, SELFPAY ==
[2023-11-22 12:26] LABS: Hematocrit 32.4 % (37.0-47.0); Hemoglobin 10.1 g/dL (12.0-15.0); Mean Corpuscular HGB Conc 31.2 g/dl (32-36); Mean Corpuscular Hemoglobin 21.6 pg (26-34); Mean Corpuscular Volume 69.4 fl (80-100); Mean Platelet Volume 11.6 fl (7.4-10.4); Platelet Count Result 189 k/mm3 (150-375); Red Blood Count 4.67 M/mm3 (4.2-5.4); Red Cell Distribution Width 17.2 % (11.5-14.5); White Blood Count 9.6 K/mm3 (4.5-10.0)
[2023-11-24 14:28] LABS: Rapid Plasma Reagin Non-Reactive (NonReactive)
== END 2023-11-22 12:10 | disposition home or self-care (01) ==
LOC: ANHLAB 12:11
PROVIDERS: PCP Family Medicine; Visit Provider Obstetrics & Gynecology
DX: Z34.93 Encounter for supervision of normal pregnancy, unspecified, third trimester (principal); Z3A.00 Weeks of gestation of pregnancy not specified
CPT/HCPCS: 36415; 85027; 86592; 86850; 86900; 86901

== ENCOUNTER 2023-11-24 05:30 | Inpatient (IN) | payer OTHER, MEDICAID, SELFPAY ==
[2023-11-24] VITALS (43 sets, daily range): BP systolic 114–130; BP diastolic 59–69; PULSE 48–135; RESP 15–20; TEMP 36.4–36.8; O2SAT 92–100; BMI 39.9
--- NOTE | 2023-11-24 05:31 | LDADM ---
This patient, Yoana Ervin, was admitted to Labor/Delivery/Recovery 120 on 11/24/23 at 05:30. Plans for labor, pain management and were discussed with patient. Patient/family oriented to hospital policies and general routines including ID bracelet, bed and alarms, visiting hours, pain management, procedures, bathroom and other care routines, personal items, smoking policy, room service/diet and guest tray routines, security routines, and visiting hours. Patient/Family are encouraged to report perceived risks to care and to ask questions if they do not understand what they are told or what they should do. See OBIX for further documentation.
[2023-11-24] MEDS: ACETAMINOPHEN 500 MG TABLET 1000 MG PO (05:58)
[2023-11-24] MEDS: LACTATED RINGERS 1,000 ML 125 ML IV CONT ×2 (06:10→07:11)
[2023-11-24 06:29] LABS: Glucose Point of Care 85 mg/dl (65-105)
--- NOTE | 2023-11-24 06:50 | WPDANESEPPF ---
Anes - Initial Pre Proc Eval Procedure: Operation Date: 11/24/23 07:30 Proposed Procedures p Section - Juan Mccarthy MD Date/Time: 11/24/23 06:50 Surgeon: Juan Mccarthy MD Pre Op Diagnosis: C/S Patient Data Age: 23 Gender: F Height: 1.65 m Weight: 109 kg Last Vital Signs Pulse 69 11/24/23 06:45 BP 121/67 11/24/23 06:45 Allergies Allergy/AdvReac Type Severity Reaction Status Date / Time No Known Allergies Allergy Verified 11/18/23 12:27 Home Medications Medication Instructions Recorded Confirmed Type vit no.95-ferrous 1 tablet PO DAILY 06/01/20 11/18/23 History fumarate 28 mg-folic acid 800 mcg tablet () levothyroxine 100 mcg tablet 100 mcg PO DAILY 09/16/23 11/18/23 History metformin 500 mg tablet 1,500 mg PO HS 09/16/23 11/18/23 History Laboratory Tests 11/24/23 06:14 POC Capillary Glucose 85 mg/dl (65-105) Patient hx anesthesia problems: none Family hx anesthesia problems: none Results Review: All pre-operative results and documents have been reviewed as part of the pre-operative evaluation. [facility] Past Medical History Medical History Gestational diabetes Hypertension Obesity and not yet delivered Surgical History Surgical History (Updated 11/24/23 @ 06:50 by Edgar Lang MD) History of section Family History Family History (Updated 11/18/23 @ 12:50 by Sherrie Cintron RN) Other Unknown family medical history Social History Social History Years smoked: 10 Smoking status: Former smoker Tobacco type: e-cigarettes/vaping Substance use: never Do You Feel Safe in your Home?: Yes Lack of Transportation: No Lack of Food: Never True Current Housing: I Have Housing Concerned About Future Housing: No Difficulty Paying Gas/Electric Bills: No Difficulty Paying for Meds: No Currently Unemployed: No Education: High School Diploma/GED Difficulty w/ Childcare or Family Care: No Gender identity (if verbalized by the patient): Female Spiritual care concerns: No Anes - Eval Final PreProcedure Day of Procedure 11/24/23 06:50 Patient weight: obese Heart: regular rate and rhythm Lungs: clear to auscultation Airway: Mallampati scale class 1 Neurological: alert and oriented Last oral intake: >/= 8 hours ASA classification: II Emergent: no Anesthetic plan: proceed Anesthesia type and monitoring: regional spinal and standard monitoring Results Review: All pre-operative results and documents have been reviewed as part of the pre-operative evaluation. Informed Consent: The patient's anesthetic plan and its attendant risks and benefits were discussed with the patient/family/POA. Questions were solicited and answers provided to the satisfaction of the patient/family/POA.
[2023-11-24] MEDS: FAMOTIDINE 20 MG/2 ML VIAL IV PUSH (07:19)
[2023-11-24] MEDS: ONDANSETRON INJ 4 MG/2 ML VIAL IV PUSH ×2 (07:20→14:52)
--- NOTE | 2023-11-24 07:22 | PM.IMHP ---
H&P: HPI History of Present Illness Date/Time: 11/24/23 07:22 Chief Complaint: prior c section, GDMA2 Narrative: Patient is a 23 year old who presents for repeat c section, indicated for prior c section and GDMA2 controlled on metformin. She was on metformin prior to as well due to hx of prediabetes. Her fasting and postprandial blood glucoses have been normal and her testing has been normal. She denies headaches, vision changes, chest pain, dyspnea, RUQ pain or epigastric pain. Good movement, no ctx, LOF, VB. Review of Systems Review of Systems: All systems reviewed & are unremarkable except as noted in HPI and below PMFSH Past Medical History Medical History Gestational diabetes Hypertension Obesity and not yet delivered Surgical History Surgical History (Updated 11/24/23 @ 07:26 by Juan Mccarthy MD) History of section Family History Family History Other Unknown family medical history Social History Social History Years smoked: 10 Smoking status: Former smoker Tobacco type: e-cigarettes/vaping Substance use: never Do You Feel Safe in your Home?: Yes Lack of Transportation: No Lack of Food: Never True Current Housing: I Have Housing Concerned About Future Housing: No Difficulty Paying Gas/Electric Bills: No Difficulty Paying for Meds: No Currently Unemployed: No Education: High School Diploma/GED Difficulty w/ Childcare or Family Care: No Gender identity (if verbalized by the patient): Female Spiritual care concerns: No Meds Home Medications and Allergies Home Medications Medication Instructions Recorded Confirmed Type vit no.95-ferrous 1 tablet PO DAILY 06/01/20 11/18/23 History fumarate 28 mg-folic acid 800 mcg tablet () levothyroxine 100 mcg tablet 100 mcg PO DAILY 09/16/23 11/18/23 History metformin 500 mg tablet 1,500 mg PO HS 09/16/23 11/18/23 History Allergies Allergy/AdvReac Type Severity Reaction Status Date / Time No Known Allergies Allergy Verified 11/18/23 12:27 Vital Signs Vital Signs - 24 hr 11/24/23 06:15 11/24/23 06:30 11/24/23 06:45 Pulse Rate 79 75 69 Blood Pressure 125/68 130/67 121/67 11/24/23 07:00 Pulse Rate 80 Blood Pressure 121/61 Exam Const: General: comfortable and no acute distress HENMT: Mouth: Yes moist mucous membranes Eyes: General: appearance normal, both eyes and all related structures Resp: Effort & Inspection: normal respiratory effort Cardio: Rate: regular rate Rhythm: regular rhythm Skin: General skin exam: normal color Extrem: General: normal to inspection Psych: Mental Status: mental status grossly normal Assessment and Plan Assessment and plan (1) Gestational diabetes: Code(s): O24.419 - Gestational diabetes mellitus in , unspecified control Status: Acute Assessment and Plan: - controlled on metformin 1500mg daily - BS 85 on arrival - testing reassuring (2) History of section: Code(s): Z98.891 - History of uterine scar from previous surgery Status: Acute Assessment and Plan: - r/b/a of repeat c section discussed with patient who would like to proceed with repeat c section
--- NOTE | 2023-11-24 07:27 | WPDHPUPDATE1 ---
History and Physical Update Update Date/Time: 11/24/23 07:27 History and Physical has been reviewed, including an updated exam of the patient. There are NO changes in the patient's condition. Risks, benefits, and alternatives have been discussed and questions answered. Patient agrees to proceed with procedure.
[2023-11-24] MEDS: ceFAZolin 2 GM/D5W 50 ML 2 GM/50 ML BAG IVPB (07:33)
[2023-11-24] MEDS: OXYTOCIN 30 UNITS/NS 500 ML 30 UNITS/500 ML BAG 125 UNITS IV CONT (09:41)
[2023-11-24] MEDS: KETOROLAC 15 MG/ML VIAL (*BKC) IV PUSH ×2 (12:46→18:54)
[2023-11-24] MEDS: SIMETHICONE 80 MG TAB.CHEW PO ×2 (12:46→17:19)
[2023-11-24] MEDS: ACETAMINOPHEN 325 MG TABLET 650 MG PO ×2 (12:47→18:54)
--- NOTE | 2023-11-24 13:30 | W.PM.OBCSD ---
OB - Delivery Note Procedure Delivery date: 11/24/23 Pre-op diagnosis: Gestational Diabetes Post-op Diagnosis: Same Induction method: None Delivery monitor: External FHT Prior to decision for section, ACOG/SMFM labor guidelines were considered and discussed with the patient and staff. Decision made to proceed with the section.: Yes Procedure Performed: Repeat Secondary branch: low cervical, transverse Surgeon: Juan Mccarthy MD Anesthesia type: Spinal (and local) Description of Procedure/Findings: The patient was taken to the operating room where she was placed in the dorsal supine position with a leftward tilt. The electronic monitor was placed and heart rate was found to be reassuring. She was prepped and draped in the normal sterile fashion, and anesthesia was checked to be adequate. A Pfannenstiel skin incision was made with the scalpel and carried through to the underlying layer of fascia with the scalpel. The fascia was incised in the midline and the incision extended laterally with the Sousa scissors. The patient reports pain at the left aspect of the incision that was not improved with tilting position of OR table. 10cc of 2% lidocaine were injected into the muscle and fascia before continuing with the surgery. The superior aspect of the fascial incision was then grasped with Nora clamps, elevated, and the underlying rectus muscles dissected off bluntly and with Sousa scissors. Attention was then turned to the inferior aspect of the fascial incision, which in similar fashion was grasped, elevated, and the rectus muscles dissected off.? The rectus muscles were then in the midline, and the peritoneum entered using two Peans and Metzenbaum scissors. The peritoneal incision was extended superiorly and inferiorly with good visualization of the bladder. With the bladder blade providing retraction and visualization, the lower uterine segment was incised in a transverse fashion with the scalpel. The uterine incision was then extended laterally. The bladder blade was removed and the infant's head was elevated and delivered atraumatically. The remainder of the was then delivered without difficulty, and the 's nose and mouth were suctioned with the bulb suction. The umbilical cord was doubly clamped and cut. The infant was then handed off to the waiting nursing staff. Specimens then obtained as listed below. The placenta was then removed manually and the uterus was exteriorized and cleared of all clots and debris. The uterine incision was repaired with 0-Monocryl in a running, interlocked fashion. A second layer and figure of eight sutures of the same material were used to imbricate the incision and ensure hemostasis. The posterior cul-de-sac was manually cleared of all clots and debris. The uterus was returned to the abdomen. The gutters were then manually cleared of all clots and debris.? The uterine incision was visualized to be hemostatic. The fascia was reapproximated with 0-Vicryl in a running fashion. The subcutaneous tissues were irrigated with warmed normal saline, and hemostasis was assured. The skin was closed with 4-0 monocryl in a running subcuticular stitch then covered with skin glue. Fundal pressure was applied to express remaining intrauterine clots and debris. The patient tolerated the procedure well. Sponge, lap, and needle counts were correct times three per nursing. The patient was taken to the recovery room in stable condition. Specimen: Yes Estimated Blood Loss: 770 Urine Output: 350 Pathology: Yes Complications: No immediate complications Condition: Stable Disposition: Floor Porter Baby Date of : 11/24/23 Weeks of gestation at delivery: 39 Infant gender: Male presentation: vertex Placenta delivery description: Expressed
[2023-11-24] MEDS: DEXTROSE 5%/0.45% SOD CHL 1,000 ML 125 ML IV CONT (13:34)
[2023-11-24] MEDS: HYDROcodone/acetaminophen (*CRX) 10-325 MG TABLET 1 TAB PO ×2 (17:18→21:35)
[2023-11-24] MEDS: LIDOCAINE 5% PATCH 1 PATCH TRANSDERM (17:19)
[2023-11-24] MEDS: DOCUSATE SODIUM 100 MG CAPSULE PO (17:19)
[2023-11-24] MEDS: POLYSACCHARIDE IRON COMPLEX 150 MG CAPSULE PO (18:53)
[2023-11-24] MEDS: metFORMIN HCL 500 MG TABLET 1500 MG PO (21:22)
[2023-11-25 00:57] VITALS: BP 126/66; PULSE 71; RESP 18; TEMP 37; O2SAT 97
[2023-11-25] MEDS: KETOROLAC 15 MG/ML VIAL (*BKC) IV PUSH ×2 (01:01→07:01)
[2023-11-25] MEDS: ACETAMINOPHEN 325 MG TABLET 650 MG PO ×3 (01:02→13:50)
[2023-11-25] MEDS: HYDROcodone/acetaminophen (*CRX) 5-325 MG TABLET 1 TAB PO ×2 (04:10→11:18)
[2023-11-25] MEDS: SIMETHICONE 80 MG TAB.CHEW (04:11)
[2023-11-25 04:13] VITALS: BP 121/65; PULSE 69; RESP 18; TEMP 36.7; O2SAT 97
[2023-11-25 04:40] LABS: Basophils Percent Auto 0.2 % (0.2-1.2); Eosinophils Absolute Auto 0.1 K/mm3 (0-0.3); Eosinophils Percent Auto 0.7 % (0-4.4); Hematocrit 28.2 % (37.0-47.0); Hemoglobin 8.4 g/dL (12.0-15.0); Immature Granulocyte Absolute 0.06 K/mm3 (0.00-0.031); Immature Granulocyte Percent A 0.6 % (0-0.5); Lymphocytes Absolute Auto 2.17 K/mm3 (0.9-3.2); Lymphocytes Percent Auto 23.1 % (18.3-44.2); Mean Corpuscular HGB Conc 29.8 g/dl (32-36); Mean Corpuscular Hemoglobin 21.2 pg (26-34); Mean Corpuscular Volume 71.2 fl (80-100); Mean Platelet Volume 11.7 fl (7.4-10.4); Monocytes Absolute Auto 0.6 K/mm3 (0.1-0.6); Monocytes Percent Auto 5.9 % (2.6-8.5); Neutrophils Absolute Auto 6.5 K/mm3 (1.3-6.7); Neutrophils Percent Auto 69.5 % (45.5-73.1); Platelet Count Result 173 k/mm3 (150-375); Red Blood Count 3.96 M/mm3 (4.2-5.4); Red Cell Distribution Width 17.1 % (11.5-14.5); White Blood Count 9.4 K/mm3 (4.5-10.0)
[2023-11-25 05:16] LABS: Platelet Estimate Adequate (Adequate)
[2023-11-25 05:18] LABS: Anisocytosis 1+; Hypochromasia 1+; Ovalocytes 1+; Schistocytes None Seen
[2023-11-25] MEDS: LEVOTHYROXINE SODIUM 100 MCG TABLET PO (07:01)
[2023-11-25] MEDS: MULTIVIT/MIN/PREN/FOL AC/IRON TABLET 1 TAB PO (07:02)
[2023-11-25] MEDS: DOCUSATE SODIUM 100 MG CAPSULE PO (07:02)
[2023-11-25] MEDS: SIMETHICONE 80 MG TAB.CHEW PO ×2 (07:02→13:50)
[2023-11-25] MEDS: POLYSACCHARIDE IRON COMPLEX 150 MG CAPSULE PO (07:02)
[2023-11-25 08:15] VITALS: BP 122/59; PULSE 66; RESP 18; TEMP 36.6; O2SAT 99
--- NOTE | 2023-11-25 09:23 | WPDANLDPN2 ---
Anes-Prog Note L&D Date/Time: 11/25/23 09:23 Comfortable throughout: section Neuraxial method: spinal Epidural/Spinal procedure site: clean & non-tender Neuro status: Neuro function grossly intact. Cardiovascular status: normal Respiratory status: normal Airway patency: baseline Mental status: baseline Post-Op hydration status: normal Vital Signs: Last Vital Signs Temp 36.6 C 11/25/23 08:15 Pulse 66 11/25/23 08:15 Resp 18 11/25/23 08:15 BP 122/59 L 11/25/23 08:15 Pulse Ox 99 11/25/23 08:15 O2 Del Method Room Air 11/24/23 11:05 Pain score (VAS): 2/10 I/O: Intake & Output 11/24/23 11/25/23 11/25/23 23:59 07:59 15:59 Intake Total 2050 1030 Output Total 1600 1950 Balance 450 -920 Post-procedural complaints: none Patient feedback: Patient satisfied with anesthetic care.
--- NOTE | 2023-11-25 09:23 | WPDANLDNPN2 ---
Anes-Prog Note L&D-Neuraxial Date/Time: 11/25/23 09:23 Neuraxial medications: intrathecal PF morphine Opiod-related complaints: none Patient feedback: Patient satisfied with post-operative pain management.
[2023-11-25] MEDS: IRON SUCROSE COMPLEX 200 MG in SODIUM CHLORIDE 0.9% IV 100 ML 220 MG IVPB (09:42)
--- NOTE | 2023-11-25 10:17 | PC.NURSE ---
Patient viewed the discharge video Mother & Baby Care, The First Two Weeks . Patient was given the opportunity and encouraged to ask questions. Patient verbalized understanding of information shared and has been given the mother/baby guide for home reference.
[2023-11-25] MEDS: IBUPROFEN 600 MG TABLET PO (13:50)
--- NOTE | 2023-11-25 13:58 | P.PNOB_ITS ---
OB - PN: Subj Subjective Date/time seen: 11/25/23 13:58 Interval history: Doing well, POD#1 Pain well controlled Minimal bleeding Would like discharge today OB - PN: Obj Data Labs 11/25/23 04:23 Labs: Laboratory Results - last 24 hr 11/25/23 04:23 WBC 9.4 RBC 3.96 L Hgb 8.4 L Hct 28.2 L MCV 71.2 L MCH 21.2 L MCHC 29.8 L RDW 17.1 H Plt Count 173 MPV 11.7 H Immature Gran % (Auto) 0.6 H Neut % (Auto) 69.5 Lymph % (Auto) 23.1 Angelina % (Auto) 5.9 Eos % (Auto) 0.7 Baso % (Auto) 0.2 Lymph # (Auto) 2.17 Angelina # (Auto) 0.6 Eos # (Auto) 0.1 Baso # (Auto) 0.0 Abs Immat Gran (auto) 0.06 H Absolute Neuts (auto) 6.5 Absolute Nucleated RBC 0.000 Nucleated RBC % 0.0 Platelet Estimate Adequate Hypochromasia 1+ Anisocytosis 1+ Ovalocytes 1+ Schistocytes None seen OB - PN A/P Assessment and Plan (1) S/P : Code(s): Z98.891 - History of uterine scar from previous surgery Status: Acute (2) Gestational diabetes: Code(s): O24.419 - Gestational diabetes mellitus in , unspecified control Status: Acute (3) Anemia affecting : Code(s): O99.019 - Anemia complicating , unspecified trimester Status: Acute Assessment and Plan: - will give IV Fe x1 prior to discharge Plan day: 1 Plan: routine care and discharge home Time Spent With Patient Time: Total time spent is greater than 50% in coordination of care (as documented) at patient's floor/unit and/or counseling patient: Review of Systems Review of Systems: All systems reviewed & are unremarkable except as noted in HPI and below Exam Const: General: comfortable and no acute distress HENMT: Mouth: Yes moist mucous membranes Eyes: General: appearance normal, both eyes and all related structures Resp: Effort & Inspection: normal respiratory effort Cardio: Rate: regular rate Rhythm: regular rhythm GI: Other: incision c/d/i Skin: General skin exam: normal color Extrem: General: normal to inspection Psych: Mental Status: mental status grossly normal
--- NOTE | 2023-11-25 14:04 | PM.OBDSVD ---
DS: Admitting Diagnosis Discharge Date 11/25/23 Admitting Diagnosis GDMA2, hx of c section DS: Discharge Diagnosis Discharge Diagnosis (1) Anemia affecting : Code(s): O99.019 - Anemia complicating , unspecified trimester Status: Acute (2) S/P : Code(s): Z98.891 - History of uterine scar from previous surgery Status: Acute (3) Gestational diabetes: Code(s): O24.419 - Gestational diabetes mellitus in , unspecified control Status: Acute OB - DS: Summary OB Procedures : None OB Procedures Intrapartum: low cervical, transverse OB Procedures: : Other (IV Fe infusion) Peripartum Data Procedures: Procedures Operation Date: 11/24/23 07:30 Actual Procedure Side Surgeon p Section Juan Mccarthy MD Time Spent with Patient Time attestation: Total time spent providing and/or coordinating discharge services: DS: Data Data Completed and Pending Pending studies at discharge: Pending at discharge 11/24/23 09:20 Surgical [PTH] Routine Labs on day of discharge: Labs from last 24 hours 11/25/23 04:23 WBC 9.4 RBC 3.96 L Hgb 8.4 L Hct 28.2 L MCV 71.2 L MCH 21.2 L MCHC 29.8 L RDW 17.1 H Plt Count 173 MPV 11.7 H Immature Gran % (Auto) 0.6 H Neut % (Auto) 69.5 Lymph % (Auto) 23.1 [place] % (Auto) 5.9 Eos % (Auto) 0.7 Baso % (Auto) 0.2 Lymph # (Auto) 2.17 [place] # (Auto) 0.6 Eos # (Auto) 0.1 Baso # (Auto) 0.0 Abs Immat Gran (auto) 0.06 H Absolute Neuts (auto) 6.5 Absolute Nucleated RBC 0.000 Nucleated RBC % 0.0 Platelet Estimate Adequate Hypochromasia 1+ Anisocytosis 1+ Ovalocytes 1+ Schistocytes None seen Discharge Plan Discharge Attending physician on discharge: Juan Mccarthy Discharging Clinician: Juan Mccarthy Patient Disposition: Home, Self-Care Activity: may shower, may drive after 2 weeks and pelvic rest Diet: as tolerated Patient Instructions: Antibiotic Form Stand Alone Forms: General Discharge Information Follow-up/Referrals: Juan Mccarthy MD [Physician] - 1 Week (incision check) Discharge Medications: New hydrocodone-acetaminophen 5-325 mg Tablet 1 tablet PO Q3H PRN (Reason: Breakthrough Pain Rated 4-6) Qty: 18 0RF docusate sodium 100 mg Capsule 100 mg PO BID Qty: 60 0RF ibuprofen 600 mg Tablet 600 mg PO Q6H Qty: 30 0RF Continued metformin 500 mg tablet 1,500 mg PO HS levothyroxine 100 mcg tablet 100 mcg PO DAILY PNV cmb#95-ferrous fumarate-FA [] 28 mg iron- 800 mcg Tablet 1 tablet PO DAILY Date of admission: 11/24/23 05:30 Primary Care Provider: Melissa,Monet Stanley Admitting Provider: Juan Mccarthy Attending physician on admission: Juan Mccarthy Condition: Stable
[2023-11-26 10:41] VITALS: BP 138/69; PULSE 74; RESP 18; TEMP 36.9; O2SAT 100
== END 2023-11-25 15:20 | disposition home or self-care (01) | DRG 788 ==
LOC: ANHLDR 05:31 → ANHOB2 11:23
PROVIDERS: Admitting Provider Obstetrics & Gynecology; PCP Family Medicine; Visit Provider Obstetrics & Gynecology
PROC: 10D00Z1 Extraction of Products of Conception, Low, Open Approach (ICD-10-PCS; CPT 59514; principal; 2023-11-24 07:30)
DX: O34.211 Maternal care for low transverse scar from previous cesarean delivery (principal); Z37.0 Single live birth; Z3A.39 39 weeks gestation of pregnancy; O24.425 Gestational diabetes mellitus in childbirth, controlled by oral hypoglycemic drugs; O90.81 Anemia of the puerperium; D64.9 Anemia, unspecified
CPT/HCPCS: 36415; 82948; 85025; 85027; 86592; 86850; 86900; 86901; 88307; A9270; J0690; J1756; J1885; J2274; J2371; J2405; J2590; J2704; J7120

== ENCOUNTER 2024-10-23 08:57 | Outpatient (CLI) | payer OTHER, MEDICAID, SELFPAY ==
--- NOTE | ~2024-10-23 | MR_ITS ---
EXAMINATION: MR brain/brain stem wo con DATE: 10/23/2024 09:35 INDICATION: Chronic migraine headache. TECHNIQUE: Magnetic resonance imaging (MRI) of the brain and brainstem was performed without intraven ous contrast. COMPARISON: None. FINDINGS: There is no intracranial hemorrhage, acute infarction, or abnormal intracranial mass lesion . The ventricles are normal in size. The orbits are normal. The paranasal sinuses are clear. The mast oid air cells are normal. IMPRESSION: 1. Normal brain. Reviewed, dictated and finalized at location A. IMPRESSION: 1. Normal brain.
--- OUTSIDE RECORDS SUMMARY | 2024-10-23 09:01 | XMS_ITS | Clinical Summary ---
Author Organization [facility] Address [address] [place] [address] Care Team Providers Care Fingerprinter Name Role Phone Monet Torres MD Primary Care Provider [phone] Monet Torres MD Unavailable [phone] Allergies No known active allergies Medications metFORMIN (GLUCOPHAGE) 1,000 mg tablet Take 1 tablet (1,000 mg total) by mouth 2 (two) times a day with meals Active rizatriptan ATHLETIC INSTRUCTOR (MAXALT-ATHLETIC INSTRUCTOR) 10 mg disintegrating tabletIndications :Migraine Take 1 tablet (10 mg total) by mouth every 2 (two) hours as needed for migraine May repeat in 2 hours if unresolved. Do not exceed 30 mg in 24 hours. 9 tablet 3 023 Active topiramate (TOPAMAX) 50 mg tabletIndications :Chronic migraine without aura without status migrainosus, not intractable TAKE 1/2 TABLET(25 MG) BY MOUTH TWICE DAILY FOR 1 WEEK THEN TAKE 1 TABLET BY MOUTH TWICE DAILY 160 tablet 1 023 Active Additional Information Patient not taking.Reported on 10/07/2024 dextroamphetamine -amphetamine (ADDERALL) 7.5 mg tablet Take 1 tablet (7.5 mg total) by mouth daily Active amitriptyline (ELAVIL) 25 mg tabletIndications :Chronic migraine without aura without status migrainosus, not intractable Take one tablet po qhs for one week, then two tablets po qhs 60 tablet 3 023 Active Additional Information Patient not taking.Reported on 10/07/2024 buPROPion (WELLBUTRIN) 75 mg tablet 1 (ONE) TABLET DAILY TAKE WITH 150MG TABLET 025 Active buPROPion XL (WELLBUTRIN XL) 150 mg 24 hr tablet Take 1 tablet (150 mg total) by mouth every morning 025 Active Nurtec ODT tablet,disintegra ting 1 TAB ONTO THE TONGUE EVERY OTHER DAY NEEDED FOR MIGRAINE HEADACHE 025 Active levothyroxine (SYNTHROID) 88 mcg tablet Take 1 tablet (88 mcg total) by mouth daily 025 Active galcanezumab-gnlm (Emgality Syringe) 120 mg/mL syringeIndication s:Migraine Prevention Inject 240 mg under the skin every 30 (thirty) days for 30 days, THEN 120 mg every 30 (thirty) days. 3 mL 025 2024 Active levothyroxine (SYNTHROID) 125 mcg tablet Take 1 tablet (125 mcg total) by mouth air export coordinator before breakfast 2024 Discontinued Active Problems Problem Noted Date Diagnosed Date Chronic migraine without aur a without status migrainosus, not intractable Encounters Date Type Department Care Team Description 10/07/2024 1:30 PM CDT Office Visit [facility] [address] [place] [address] [address] [place] [address] Renata Bruce NP Chronic migraine without aura without status migrainosus, not intractable (Primary Dx) 10/07/2024 Telephone [facility] [address] [place] [address] [address] [place] [address] Renata Bruce NP from Last 3 Months Surgical History Surgery Date Site/Laterality Comments DILATION AND CURETTAGE, DIAG NOSTIC / THERAPEUTIC 11/25/2016 - 12/25/2016 SECTION 11/24/2023 Medical History Medical History Date Comments Migraine Seasonal allergies Depression Anxiety Social History Tobacco Use Types Packs/Day Years Used Date Smoking Tobacco: Never Smokeless Tobacco: Current Tobacco Cessation:Ready to Q uit: No; Counseling Given: No Alcohol Use Standard Drinks/Week Comments No 0 (1 standard drink = 0.6 oz pur e alcohol) Comments Unknown Sex and Gender Information Value Date Recorded Sex Assigned at Not on file Legal Sex Female 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 Gender Identity Not on file Sexual Orientation Not on file Obstetrics History Para Term AB IAB SAB Ectopic Multiple Livin g Live Births 1 Date Outcome GA Total Labor Labor/2nd/3rd Weight Sex Type Anes PTL Talia A1 A5 Name Clin Last Filed Vital Signs Vital Sign Reading Time Taken Comments Blood Pressure 129/82 10/07/2024 12:59 PM CDT Pulse 91 10/07/2024 12:59 PM CDT Temperature 36.6 C (97.8 F) 06/28/2018 1:43 PM FORECLOSURE HOME INSPECTOR Respiratory Rate 18 03/25/2023 10:5 7 AM CDT Oxygen Saturation 93% 10/07/2024 12: 59 PM CDT Inhaled Oxygen Concentration - - Weight 115.8 kg (255 lb 3.2 oz) 025 12:59 PM CDT Height 165.1 cm (5' 5 ) 10/07/2024 12:5 9 PM CDT Body Mass Index 42.47 10/07/2024 12:59 PM CDT Plan of Treatment Health Maintenance Due Date Last Done Comments Cervical Cancer Screening 1998 Depression Screening 1998 Hepatitis C Screening 1998 Regular Well Visit/Exam 18-64 2016 Influenza Vaccine (#1) 2024 , 07/13/2020, 05/12/2018, Additional history exists DTaP/Tdap/Td Vaccine (8 - Td or Tdap) 07/13/2030 07/13/2020, 05/07/2010, 10/24/2003, Additional history exists Hepatitis B Screening Completed 10/04/2002 , 06/02/2002, 06/02/2002, Additional history exists Varicella Vaccines Completed 03/07/2004, 04/21/2002 HPV Vaccines Completed 09/01/2012, 07/29, 05/07/2010 Pneumococcal vaccine <65 Aged Out No longer eligible based on patient's age to complete this topic Insurance [place] [facility] CHO[facility] PL[facility] HMO/PPO Address: [address] [address] [place] [address] [facility] CHOICE PLUS Member Subscriber Plan / Payer (Ef fective 2024-Present) Name:Jeramie Ervinramos Paiz Relation to Subscriber:Spouse Name:Keshav Ervin Date of :1999 (Home) Address: [address] [place] [address] Payer ID:[id number] (NAIC) Type:[facility] HMO/PPO Address: [address] [address] [place] [address] IDPA IDPA AETNA Care Teams Fingerprinter Relationship Specialty Start Date End Date Monet Torres MD [address] [place] [address] PCP - General Family Medicine 09/13/22 Monet Torres MD [address] [place] [address] Family Medicine 09/13/22
--- OUTSIDE RECORDS SUMMARY | 2024-10-23 09:01 | XMS_ITS | Referral Summary ---
Author Organization [facility] Building [facility] Address [address] [place] [address] Care Team Providers Care Dermatology Procedural Physician Name Role Phone Monet Torres MD Primary Care Provider [phone] Monet Torres MD Unavailable [phone] Encounters Date Type Department Care Team Description 10/07/[address] [facility] [address] [place] [address] [address], [place] [address] Renata Bruce NP 10/07/2024 1:30 PM CDT Office Visit [facility] [address] [place] [address] [address], [place] [address] Renata Bruce NP Chronic migraine without aura without status migrainosus, not intractable (Primary Dx) from Last 3 Months Allergies No known active allergies Medications metFORMIN (GLUCOPHAGE) 1,000 mg tablet Take 1 tablet (1,000 mg total) by mouth 2 (two) times a day with meals Active rizatriptan BONDACTOR MACHINE OPERATOR (MAXALT-BONDACTOR MACHINE OPERATOR) 10 mg disintegrating tabletIndications :Migraine Take 1 [...] 1 tablet (125 mcg total) by mouth certified coatings inspector before breakfast 2024 Discontinued Active Problems Problem Noted Date Diagnosed Date Chronic migraine without aur a without status migrainosus, not intractable Social History Tobacco Use Types Packs/Day Years Used Date Smoking Tobacco: Never Smokeless Tobacco: Current Tobacco Cessation:Ready to Q uit: No; Counseling Given: No Alcohol Use Standard Drinks/Week Comments No 0 (1 standard drink = 0.6 oz pur e alcohol) Comments Unknown Sex and Gender Information Value Date Recorded Sex Assigned at Not on file 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 Gender Identity Not on file Sexual Orientation Not on file Last Filed Vital Signs Vital Sign Reading Time Taken Comments Blood Pressure 129/82 10/07/2024 12:59 PM CDT Pulse 91 10/07/2024 12:59 PM CDT Temperature 36.6 C (97.8 F) 06/28/2018 1:43 PM INSURANCE RATER Respiratory Rate 18 03/25/2023 10:5 7 AM CDT Oxygen Saturation 93% 10/07/2024 12: 59 PM CDT Inhaled Oxygen Concentration - - Weight 115.8 kg (255 lb 3.2 oz) 025 12:59 PM CDT Height 165.1 cm (5' 5 ) 10/07/2024 12:5 9 PM CDT Body Mass Index 42.47 10/07/2024 12:59 PM CDT Plan of Treatment Not on file Insurance [place] [place] [employer] [facility] CHOICE PLUS [facility] HMO/PPO Address: [address] [address] [place] [address] [facility] CHOICE PLUS [facility] HMO/PPO Address: [address] [place] [id number] IDPA IDPA [employer]ET[employer] Care Teams Dermatology Procedural Physician Relationship Specialty Start Date End Date Monet Torres MD [address] [place] [address] PCP - General Family Medicine 09/13/22 Monet Torres MD [address] [place] [address] Family Medicine 09/13/22
--- OUTSIDE RECORDS SUMMARY | 2024-10-23 09:01 | XMS_ITS | Clinical Summary ---
Author Organization [facility] Address [facility] [place] [address] Care Team Providers Care Tile Machine Operator Name Role Phone Monet Torres MD Primary Care Provider [phone] Allergies No known active allergies Medications ondansetron 4 MG disintegrating tablet Take 1 tablet (4 mg total) by mouth every 8 (eight) hours as needed for Nausea. 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 Gender Identity Female 11/20/2019 3:07 AM CDT Sexual Orientation Not on file Last Filed Vital Signs Vital Sign Reading Time Taken Comments Blood Pressure 133/69 02/26/2020 8:18 PM CDT Pulse 81 02/26/2020 8:18 PM CDT Temperature 36.9 C (98.4 F) 02/26/2020 8:18 PM CDT Respiratory Rate 20 02/26/2020 8:18 PM CDT Oxygen Saturation 98% 02/26/2020 8:18 PM CDT Inhaled Oxygen Concentration - - Weight 119.7 kg (264 lb) 02/26/2020 5:46 PM CDT Height 162.6 cm (5' 4 ) 02/26/2020 5:46 PM CDT Body Mass Index 45.32 02/26/2020 5:46 PM CDT Plan of Treatment Health Maintenance Due Date Last Done Comments Annual Physical 2001 Pneumococcal Vaccine: Pediatrics (0 to 5 Years) and At-Risk Patients (6 to 64 Years) (1 of 2 - PCV) 2004 Hepatitis C 2016 DTaP, Tdap and Td Vaccines (7 - Td or Tdap) 05/07/2020 05/07/2010, 10/24/2003, 04/21/2002, Additional history exists Cervical Cancer Screening Pap Smear (Age 21 to 29) Every 3 Years 11/09/2023 11/08/2020, 11/08/2020, 11/08/2020 Cervical Cancer Screening 11/09/2023 COVID-19 Vaccine ( season) 2024 RSV Immunization or 60+ Years (1 - 1-dose 75+ series) 2073 Hepatitis B Vaccines Completed 10/04/2002, 06/02/2002, 1998 Meningococcal Vaccine Aged Out 05/07/2010 No jesus moon eligible based on patient's age to complete this topic HPV Vaccines Completed 09/01/2012, 07/29, 05/07/2010 Chlamydia Screening Females ages 16-24 Discontinued 11/08/2020 Meningococcal B Vaccine Aged Out No l onger eligible based on patient's age to complete this topic RSV Immunizations Under 20 Months Aged Out No longer eligible based on patient's age to complete this topic Insurance MEDICAID [facility] Care Teams Tile Machine Operator Relationship Specialty Start Date End Date Monet Torres MD [address] [place] [address] PCP - General FAMILY PRACTICE 07/19/19
--- OUTSIDE RECORDS SUMMARY | 2024-10-23 09:01 | XMS_ITS | Data Portability ---
Author Organization [facility] Address [address] [address] [place] [address] Care Team Providers Care Admissions Manager Rn Name Role Phone CASSIE SANTAMARIA Primary Care Provider Assessment Encounter Date Assessment Date Assessment LastModified by Organization Details LastModified Time 05/25/2024 05/25/2024 Annual gynecological exam performed. Patient will come back in a year unless there are new symptoms. [email or web address] Not available 05/06/2024 12:39:29 Plan of Treatment Reminders Order Date Submit Date Provider Last Modified By Organization Details Last Modified Time Details Appointments None recorded. Lab pap, IG + reflex HPV if ASC-U - if positive HPV run subtyping 16,18/45 2023 024 [facility] (Lab), [address], [place], [address], 4 08:34:30 Referral None recorded. Procedures None recorded. Surgeries None recorded. Imaging US, obstetric, biophysical profile + non-stress test 2023 024 [email or web address] [place], [address], [place], [address], 4 19:34:19 non-stress test 2023 024 [email or web address] [address], [place], [address], 4 22:20:15 Medication Orders metformin ER 500 mg tablet,exte nded release 24 hr 2023 024 [email or web address] [facility] #[id number], [address] [place], [address], 4 16:31:18 levothyroxi ne 100 mcg tablet 2023 024 NARDA [facility]/Pharmacy #[id number], [address] [place], [address], 4 16:31:25 Patient TargetsNo targets recorded. Patient InstructionsNo instructions recorded. Reason for Referral None Reported. Results Created Date Observation Date Name Description Value Unit Range Abnormal Flag Note LastModifiedBy Organization Detail LastModifiedTime 05/25/20 24 05/25/2024 IMAGE GUIDE D PAP, REFLE X HPV IF ASCUS ONLY image guided Pap, reflex HPV ASCUS only SEE RESULT S BELOW CASE REPOR T: Cytol ogy Gynec ologi harmony Repor t Case: [id number] Autho radha bazzi Provi koffi: Dermo dy, Mehul , ANP, ORDER ENTRY SPECIALIST Colle cted: 05/25 1421 Order ing Locat ion: [place] Path[facility] Recei verito: 05/26 1516 First Scree n: Alexa Mckeon ret CT Speci men: Scree carolyn Pap - Image d, Cervi x STATE MENT OF ADEQU ACY: Satis facto ry for evalu ation Trans forma tion zone compo nent prese nt ----- ----- ----- ----- ----- ----- ----- ----- ----- ----- ----- ----- ----- ----- ----- ----- ----- ---- FINAL DIAGN OSIS: Negat buddy for Intra epith elial Lesio n or Kylie carreon (NIL) . Elect sylvain carcamo kevin d by Alexa Mckeon ret, CT on 11/6/ 2024 at 7:29 AM ----- ----- ----- ----- ----- ----- ----- ----- ----- ----- ----- ----- ----- ----- ----- ----- ----- ---- COMME NT: This speci men was revie wed by a Cytot echno logis t and/o r Patho logis t (as indic ated in this repor t) after evalu ation using the Thinp rep Imagi ng Syste m. CLINI HARMONY INFOR MATIO N: Menst rual Statu s: LMP (if appli cable ): Clini harmony Histo ry/Pr eviou s Pap: Type of Neopl dalila (if appli cable ): Signi fican t Clini harmony Findi ngs: Other Histo ry: Hormo abel (if appli cable ): PAP EDUCA MARYANNE L NOTE: The Pap Test is a scree carolyn test with an inher ent false negat buddy rate. Liqui d-bas ed sampl ing may decre ase, but will not elimi jerald, false negat buddy resul ts. A negat buddy resul t does not precl ude the prese nce and/o r devel opmen t of disea se, since the prese nce of abnor mal cells in the sampl e depen ds on the locat ion of the lesio n and sampl ing techn ique. Nikita nued regul ar scree carolyn is the best metho d of cance r preve ntion . If repor esperanza cytol ogic findi ng do not corre late with physi harmony and/o r histo rical findi ngs, furth er inves tigat ion is recom emiliano d, as trace arredondo nted. Not Available [facility] (Lab) [address], [place], [address], 06/02/2024 08:34:30 10/21/19 24 10/21/2023 non-s tress test No observ ation record ed. [email or web address] [place] [address], [place], [address], 10/21/2023 16:01:04 10/21/19 24 10/21/2023 US, obste tric, bioph ysica l profi le + non-s tress test No observ ation record ed. [email or web address] [place] [address], [place], [address], 10/21/2023 18:37:08 10/21/19 24 10/21/2023 US, obste tric, bioph ysica l profi le + non-s tress test No observ ation record ed. [email or web address] [address], [place], [address], 10/21/2023 19:15:40 10/28/19 24 10/28/2023 non-s tress test No observ ation record ed. [email or web address] [place] [address], [place], [address], 10/28/2023 15:33:04 10/28/19 24 10/28/2023 US, obste tric, bioph ysica l profi le + non-s tress test No observ ation record ed. [email or web address] [place] [address], [place], [address], 10/28/2023 18:47:29 10/28/19 24 10/28/2023 US, obste tric, bioph ysica l profi le + non-s tress test No observ ation record ed. [email or web address] [address], [place], [address], 10/28/2023 18:44:10 11/04/19 24 11/04/2023 non-s tress test No observ ation record ed. [email or web address] [place] [address], [place], [address], 11/04/2023 15:31:00 11/04/19 24 11/04/2023 US, obste tric, follo w-up No observ ation record ed. [facility] [address], [place], [address], 11/04/2023 17:42:25 11/04/19 24 11/04/2023 US, obste tric, bioph ysica l profi le + non-s tress test No observ ation record ed. [facility] [address], [place], [address], 11/04/2023 17:42:37 11/04/19 24 11/04/2023 US, obste tric, follo w-up No observ ation record ed. [email or web address] [address], [place], [address], 11/05/2023 09:44:26 11/11/19 24 11/11/2023 US, obste tric, bioph ysica l profi le + non-s tress test No observ ation record ed. [email or web address] [place] [address], [place], [address], 11/11/2023 14:28:53 11/11/19 24 11/11/2023 US, obste tric, bioph ysica l profi le + non-s tress test No observ ation record ed. NARDA [address], [place], [address], 11/11/2023 17:56:50 11/11/19 24 11/11/2023 non-s tress test No observ ation record ed. [email or web address] [place] [address], [place], [address], 01/06/2024 17:33:59 11/11/19 non-s tress test No observ ation record ed. [email or web address] [place] [address], [place], [address], 11/11/2023 15:32:32 11/18/19 24 11/18/2023 US, obste tric, bioph ysica l profi le + non-s tress test No observ ation record ed. [email or web address] [place] [address], [place], [address], 11/18/2023 18:11:22 11/18/19 24 11/18/2023 US, obste tric, follo w-up No observ ation record ed. [email or web address] [address] [facility], [place], [address], 11/21/2023 09:36:18 11/18/19 24 11/18/2023 non-s tress test No observ ation record ed. [email or web address] [place] [address], [place], [address], 11/18/2023 18:59:54 11/18/19 non-s tress test No observ ation record ed. [place] [address], [place], [address], 11/18/2023 17:23:29 Result Notes None recorded. Problems Name Problem SNOMED Code Status Onset Date Resolution Date Notes Provider Name and Address Organization Details Recorded Time Pregnanc y 50760953 Completed 201907/18/2020 Master jiménez [facility] 4 13:47:33 Obesity 835181592 Completed 2xwk NST's at 32WKS Mary jiménez [facility] 0 16:59:45 Migraine 21010025 Completed fioricet and neuro consult Mary jiménez [facility] 0 16:59:45 Polyhydr amnios 55227382 Completed 201916- 29.6 resolved aMry jiménez, [facility] 0 16:59:45 Gestatio nal diabetes mellitus 09231071 Completed 32wks 2xwk NSTs, BS QID, Wkly OB appts & serial growth u/s Mary jiménez, [facility] 0 16:59:45 Hyperten sive disorder 69520726 Completed CHTN delivery 38wks Mary jiménez, [facility] 0 16:59:45 Hashimot o thyroidi tis 41204661 Active 2022 JUAN DOLAN MD [address], [place], [address], [facility] 3 23:12:02 Pregnanc y 92300122 Completed 202211/28/2023 Silvalay Collins null, [facility] 4 13:47:33 Hypothyr oidism 89608424 Completed 100mcg levo [facility], [facility] 4 13:47:29 Obesity 595988247 Completed pre-preg BMI 38 Master [facility], [facility] 4 13:47:29 Large for gestatio n age fetus 237977678 Completed EFW 91% at 19 weeks, 96% at 23 weeks, 94% at 27 weeks, serial growth, Master Collins tino, [facility] 4 13:47:29 Past pregnanc y history of section 152001328 Completed desires [facility], 11/23 at 39w Geritito GutierrezKarina null, [facility] 4 13:47:29 Gestatio nal diabetes mellitus 58636574 Completed 2023 32wk antenata l testing, 2hr pp gtt. 1500mg Metformi n started 08/29/23- increase d to 1500mg 10/01/23 [facility], [facility] 4 13:47:29 Gestatio nal diabetes mellitus 77793939 Completed 202312/02/2023 32wk antenata l testing, 2hr pp gtt. 1500mg Metformi n started 08/29/23- increase d to 1500mg 10/01/23 JUAN DOLAN MD [address], [place], [address], [facility] 4 16:22:58 Hypothyr oidism 17520136 [facility], [facility] 4 13:47:29 Large for gestatio n age fetus 256178097 Completed 12/02/2023 EFW 91% at 19 weeks, 96% at 23 weeks, 94% at 27 weeks, serial growth, JUAN DOLAN MD [address], [place], [address], [facility] 4 16:22:36 Past pregnanc y history of section 279988395 Active desires [facility], 11/23 at 39w [facility] 4 13:47:29 Obesity 185586839 Active pre-preg BMI 38 [facility], [facility] 4 13:47:29 Problem Notes None recorded. Procedures Surgical History Date Name Laterality Status Provider Name and Address Organization Details Recorded Time 4 Caesarean Section completed Kandy Paul [facility] 05/25/2024 14:06:20 3 IUD Removal completed ANGELO Thomas- [address], [place], [address], [facility] 11/19/2022 14:07:03 2 IUD Insertion completed Andree Brooks YAIR- [address], [place], [address], [facility] 07/04/2022 15:36:20 1 Date of Last Pap Smear completed [facility] 11/22/2020 13:42:27 0 Caesarean Section completed [facility] 11/22/2020 14:18:54 0 NST completed Aisha Zepeda MD [address], [place], [address], [facility] 07/03/2020 12:21:36 7 Dilation and Curettage completed Spring Flores [facility] 12/14/2019 13:44:04 Imaging Results Imaging Date Name Status LastModified by Organiz ation Details LastModified Time 10/21/2023 non-stress test completed [facility] [place] [address], [place], [address], 10/21/2023 16:01:04 10/21/2023 US, obstetric, biophysical profile + non-stress test completed [email or web address] [place] [address], [place], [address], 10/21/2023 18:37:08 10/21/2023 US, obstetric, biophysical profile + non-stress test completed [email or web address] [address], [place], [address], 10/21/2023 19:15:40 10/28/2023 [facility] [place] [address], [place], [address], 10/28/2023 15:33:04 10/28/2023 US, obstetric, biophysical profile + non-stress test completed [facility] [address], [place], [address], 10/28/2023 18:47:29 10/28/2023 US, obstetric, biophysical profile + non-stress test completed [email or web address] [address], [place], [address], 10/28/2023 18:44:10 11/04/2023 non-stress test completed [address], [place], [address], 11/04/2023 15:31:00 11/04/2023 US, obstetric, follow-up completed [place] [address], [place], [address], 11/04/2023 17:42:25 11/04/2023 US, obstetric, biophysical profile + non-stress test completed [facility] [address], [place], [address], 11/04/2023 17:42:37 11/04/2023 US, obstetric, follow-up completed [address], [place], [address], 11/05/2023 09:44:26 11/11/2023 US, obstetric, biophysical profile + non-stress test completed [email or web address], [place], [address], 11/11/2023 14:28:53 11/11/2023 US, obstetric, biophysical profile + non-stress test completed NARDA [address], [place], [address], 11/11/2023 17:56:50 11/11/2023 non-stress test completed [email or web address] [place] [address], [place], [address], 01/06/2024 17:33:59 11/11/2023 non-stress test completed [place] [address], [place], [address], 11/11/2023 15:32:32 11/18/2023 US, obstetric, biophysical profile + non-stress test completed [email or web address] [place] [address], [place], [address], 11/18/2023 18:11:22 11/18/2023 US, obstetric, follow-up completed [address], [place], [address], 11/21/2023 09:36:18 11/18/2023 non-stress test completed [email or web address] [place] [address], [place], [address], 11/18/2023 18:59:54 11/18/2023 non-stress test completed [email or web address] [place] [address], [place], [address], 11/18/2023 17:23:29 Procedure Notes None recorded. Medical Equipment None Reported. Allergies No known drug allergies Medications Name Sig Start Date Stop Date Status Note LastModified by Organization Details LastModified Time cyclobenzap rine 10 mg tablet 03/09 completed Not Available Not Available Not Available Mirena 21 mcg/24 hr (up to 8 years) 52 mg intrauterin e device Take 1 device by intrauter ine route. 03/21 completed Not Available Not Available Not Available dextroamphe tamine-amph etamine 7.5 mg tablet TAKE 1 TABLET BY MOUTH IN THE MORNING AND AT LUNCH 04/25 completed Not Available Not Available Not Available metformin 500 mg tablet TAKE 1 TABLET BY MOUTH THREE TIMES A DAY FOR 30 DAYS 05/06 completed Not Available Not Available Not Available prednisone 10 mg tablet TAKE 3 TABLETS BY MOUTH DAILY FOR 5 DAYS 12/01 completed Not Available Not Available Not Available ibuprofen 800 mg tablet 03/09 completed Not Available Not Available Not Available clomiphene citrate 50 mg tablet 03/09 completed Not Available Not Available Not Available sumatriptan 100 mg tablet 03/09 completed Not Available Not Available Not Available hydrocodone 5 mg-acetamin ophen 325 mg tablet TAKE 1 TABLET BY MOUTH EVERY 3 HOURS NEEDED FOR BREAKTHRO UGH PAIN RATED 4-6 12/01 completed Not Available Not Available Not Available ondansetron HCl 4 mg tablet TAKE 1 TABLET BY MOUTH THREE TIMES DAILY NEEDED 06/25 completed Not Available Not Available Not Available dextroamphe tamine-amph etamine 10 mg tablet TAKE 1 TABLET BY MOUTH IN THE MORNING AND 1 TABLET AT LUNCHTIME 05/06 completed Not Available Not Available Not Available phentermine 15 mg capsule TAKE 1 CAPSULE BY MOUTH EVERY DAY 11/15 completed Not Available Not Available Not Available phentermine 37.5 mg tablet TAKE 1 TABLET BY MOUTH DAILY 05/23 completed Not Available Not Available Not Available levothyroxi ne 100 mcg tablet TAKE 1 TABLET BY MOUTH EVERY DAY active Not Available Not Available No t Available hydrocortis one 2.5 % topical cream with perineal applicator APPLY SPARINGLY TO AFFECTED AREA 2 TO 4 TIMES A DAY 12/01 completed Not Available Not Available Not Available levothyroxi ne 88 mcg tablet TAKE 1 TABLET BY MOUTH EVERY DAY active Not Available Not Available No t Available amoxicillin 875 mg tablet TAKE 1 TABLET BY MOUTH EVERY 12 HOURS 09/23 completed Not Available Not Available Not Available amitriptyli ne 25 mg tablet TAKE 1 TABLET BY MOUTH EVERY NIGHT AT BEDTIME FOR 1 WEEK THEN TAKE 2 TABLETS BY MOUTH EVERY NIGHT AT BEDTIME 04/25 completed Not Available Not Available Not Available metoclopram jimmy 5 mg tablet TAKE 1 TABLET BY MOUTH EVERY 6 HOURS NEEDED 12/01 completed Not Available Not Available Not Available OneTouch Ultra Test strips USE TO CHECK BLOOD SUGAR 4 TIMES A DAY 12/01 completed Not Available Not Available Not Available rizatriptan 10 mg disintegrat ing tablet DISSOLVE ONE TABLET BY MOUTH EVERY 2 HOURS NEEDED FOR MIGRAINE MAY REPEAT IN 2 HOURS IF NEEDED DO NOT EXCEED 30 MG IN 24 HOURS 04/25 completed Not Available Not Available Not Available cephalexin 500 mg capsule 03/09 completed Not Available Not Available Not Available levothyroxi ne 125 mcg tablet TAKE 1 TABLET BY MOUTH DAILY 03/21 completed Not Available Not Available Not Available dextroamphe tamine-amph etamine 20 mg tablet TAKE 1 (ONE) TABLET BY MOUTH IN AM AND 1 TABLET AT LUNCHTIME active Not Available Not Available No t Available progesteron e micronized 200 mg capsule TAKE 1 CAPSULE BY MOUTH EVERY DAY 06/11 completed Not Available Not Available Not Available dextroamphe tamine-amph etamine 15 mg tablet TAKE 1 (ONE) TABLET IN THE MORNING AND 1 TABLET AT LUNCHTIME 05/25 completed Not Available Not Available Not Available fluoxetine 10 mg capsule TAKE 1 CAPSULE BY MOUTH EVERY DAY WITH MEALS 11/15 completed Not Available Not Available Not Available docusate sodium 100 mg capsule TAKE 1 CAPSULE BY MOUTH TWICE A DAY 12/01 completed Not Available Not Available Not Available ergocalcife rol (vitamin D2) 1,250 mcg (50,000 unit) capsule TAKE 1 CAPSULE BY MOUTH EVERY WEEK 04/25 completed Not Available Not Available Not Available ibuprofen 600 mg tablet TAKE 1 TABLET BY MOUTH EVERY 6 HOURS 12/01 completed Not Available Not Available Not Available letrozole 2.5 mg tablet 03/09 completed Not Available Not Available Not Available propranolol 20 mg tablet TAKE 1 TABLET BY MOUTH DAILY 11/15 completed Not Available Not Available Not Available ondansetron 4 mg disintegrat ing tablet 03/09 completed Not Available Not Available Not Available fluoxetine 20 mg capsule TAKE 1 CAPSULE BY MOUTH DAILY 05/23 completed Not Available Not Available Not Available metformin ER 500 mg tablet,exte nded release 24 hr TAKE 3 TABLETS BY MOUTH AT BEDTIME active Not Available Not Available No t Available dextroamphe tamine-amph etamine 5 mg tablet TAKE 1 TABLET BY MOUTH DAILY AT LUNCH 04/25 completed Not Available Not Available Not Available bupropion HCl XL 300 mg 24 hr tablet, extended release TAKE 1 TABLET BY MOUTH DAILY 05/23 completed Not Available Not Available Not Available bupropion HCl XL 150 mg 24 hr tablet, extended release TAKE 1 TABLET BY MOUTH EVERY DAY 11/22 completed Not Available Not Available Not Available topiramate 50 mg tablet TAKE 1 TABLET BY MOUTH TWICE DAILY 04/25 completed Not Available Not Available Not Available iron 05/25 completed Not Available Not Available Not Available 12/01 completed Not Available Not Available Not Available butalbital- acetaminoph en-caffeine 50 mg-300 mg-40 mg capsule TK 1 C PO Q 6 H PRN 11/08 completed Not Available Not Available Not Available Procort 1.85 %-1.15 % rectal cream Insert 1 applicati on 3 times a day by rectal route. 08/08 completed Not Available Not Available Not Available OneTouch Ultra2 Meter USE FOR TESTING BLOOD SUGAR 12/01 completed Not Available Not Available Not Available OneTouch Delica Plus Lancet 33 gauge USE 1 TO CHECK GLUCOSE 4 TIMES DAILY . FASTING, BEFORE BREAKFAST , LUNCH AND DINNER 12/01 completed Not Available Not Available Not Available OneTouch Delica Plus Lancet 30 gauge USE TO TEST FOUR TIMES DAILY 11/07 completed Not Available Not Available Not Available ID NOW COVID-19 Test Kit TEST DIRECTED TODAY 05/23 completed Not Available Not Available Not Available Vitals Date Recorded Body height Body mass index (BMI) Systolic blood pressure Diastolic blood pressure Provider Name and Address Organization Details Last Updated DateTime 11/18/2023 166.37 cm 39.5 kg/m2 130 mm[Hg] 78 mm[Hg] [facility] 11/18/2023 16:12:24 Date Recorded Body weight Provider Name an d Address Organization Details Last Updated DateTime 11/18/2023 055415.62856 g Jesus Manuel GONZALEZ [address], [place], [address], [facility] 11/18/2023 16:24:29 Date Recorded Body height Body mass index (BMI) Body weight Systolic blood pressure Diastolic blood pressure Provider Name and Address Organization Details Last Updated DateTime 12/02/2023 166.37 cm 36.3 kg/m2 270865.0 7 g 144 mm[Hg] 91 mm[Hg] Estefani [facility] 4 16:08:44 Date Recorded Body height Body mass index (BMI) Body weight Systolic blood pressure Diastolic blood pressure Provider Name and Address Organization Details Last Updated DateTime 12/30/2023 166.37 cm 36.1 kg/m2 51395.76 g 144 mm[Hg] 85 mm[Hg] [facility] 4 16:31:08 Date Recorded Body height Body mass index (BMI) Body weight Systolic blood pressure Diastolic blood pressure Provider Name and Address Organization Details Last Updated DateTime 05/25/2024 166.37 cm 39.2 kg/m2 652081.5 8 g 136 mm[Hg] 86 mm[Hg] Kandy Paul [facility] 4 14:04:07 Social History Question Answer Notes LastModified by Organizat ion Details LastModified Time Tobacco Smoking Status Former Smoker [facility] 08/05/2023 12:09:42 Do You Have An Advance Directive? No Information not available 05/23/2022 What Is Your Level Of Alcohol Consumption? None Information not available 12/16/2019 Are You Blind Or Do You Have Difficulty Seeing? No Information not available 11/08/2020 What Is Your Level Of Caffeine Consumption? Occasional Information not available 11/22/2020 How Much Tobacco Do You Chew? None Information not available 05/23/2022 In The 14 Days Before Symptom Onset, Have You Had Close Contact With A Laboratory-confir med COVID-19 While That Case Was Ill? No Information not available 05/23/2022 In The 14 Days Before Symptom Onset, Have You Had Close Contact With A Person Who Is Under Investigation For COVID-19 While That Person Was Ill? No Information not available 05/23/2022 Have You Been To An Area Known To Be High Risk For COVID-19? No Information not available 11/22/2020 Are You Deaf Or Do You Have Serious Difficulty Hearing? No Information not available 11/08/2020 What Type Of Diet Are You Following? REGULAR Information not available 11/08/2020 Do You Or Have You Ever Used E-cigarettes Or Vape? Never Used Electronic Cigarettes [email or web address] Information not available 08/05/2023 What Is The Highest Grade Or Level Of School You Have Completed Or The Highest Degree You Have Received? 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 No Information not available 11/22/2020 What Was The Date Of Your Most Recent Tobacco Screening? 06/19/2020 [email or web address] Information not available 08/05/2023 Do You Use Protection During Sex? No Information not available 11/22/2020 Do You Use Your Seat Belt Or Car Seat Routinely? Yes Information not available 11/22/2020 Do You Have Smoke And Carbon Monoxide Detectors In Your Home? Yes Information not available 11/22/2020 Do You Or Have You Ever Used Smokeless Tobacco? Never Used Smokeless Tobacco [email or web address] Information not available 08/05/2023 How Much Tobacco Do You Smoke? No Information not available 11/22/2020 Do You Feel Stressed (tense, Restless, Nervous, Or Anxious, Or Unable To Sleep At Night)? [id number] Information not available 11/22/2020 Do You Use Any Illicit Or Recreational Drugs? No Information not available 11/08/2020 Do You Use Sunscreen Routinely? Yes Information not available 11/22/2020 Have You Used IV Drugs? No Information not available 05/23/2022 Sex: Unknown Functional Status Question Answer Note LastModified by Organizat ion Details LastModified Time Do you have difficulty walking or climbing stairs? No Information not available 08/05/2023 Are you able to walk? YESWOREST Information not available 11/08/2020 Are you able to care for yourself? Yes [email or web address] Information not available 08/05/2023 Do you have difficulty dressing or bathing? No [email or web address] Information not available 08/05/2023 What is your exercise level? Occasional walking Information not available 12/16/2019 Mental Status None recorded. Family History Relationship Description Onset Age of this Age Resolved Age Notes LastModified by Organization Details LastModified Time Maternal Grandfather Diabetes mellitus [email or web address] Not available 2022 15:52:44 Maternal Grandfather Hypertensive disorder [email or web address] Not available 2022 15:52:44 Maternal Grandmother Family history of Cardiovascul ar disease [email or web address] Not available 09/01 11:30:32 Maternal Grandmother Hypertensive disorder Not available 2023 14:05:51 Maternal Grandmother Malignant tumor of breast 60 [email or web address] Not available 2023 14:28:24 Maternal Aunt Malignant tumor of breast 50 [email or web address] Not available 2023 14:27:58 Maternal Aunt Malignant tumor of breast 50 [email or web address] Not available 2023 14:28:33 Medical History Condition Response Other N Blood Transfusion N Dermatologic Disorders N Gestational Diabetes Y Anxiety Disorder N Autoimmune disease N Arthritis N Polyps N Infertility N Acid Reflux (GERD) N Cancer N Varicosities N Stroke N Neurologic/Epilepsy N Fibromyalgia N Headaches N Kidney Disease N Heart Problems N Kidney or Bladder Problems N Eating Disorder N Art (IVF or FET) N Hepatitis/Liver Disease N Urinary Tract Infection N Asthma N Trauma/Violence N Thrombophilias N Allergies (Food, seasonal, environmental ) N Breast Cancer N Drug/Latex Allergies/Reactions N Lung Disease N Defects or Inherited Disease N Breast Problem N Hematologic disorders N Anesthesia Complications N History of STI N Deep Vein Thrombosis N Polycystic ovary syndrome N History of abnormal pap Y Endometriosis N High Cholesterol N Thyroid Problems N GI Problems N Anemia N Psychiatric Illness N Ovarian Cancer N Diabetes Y Pulmonary (TB, Asthma) N Eczema N Abuse/Domestic Violence N Depression/ depression Y Heart Disease N Pre-Eclampsia N Hypertension Y Osteoporosis N Gynecological History Statement/Question Response Flow Moderate Date of LMP 05/14/2024 N Was last menstrual period normal N STIs/STDs N Desired Control Method None Abnormal Pap Y On BCP's at Conception? N HPV Vaccine N Duration of Flow (days) 7 12 Current Control Method None Age at First Child 19 Are cycles usually normal N Sexually Active? Y Menses Monthly Y Age of first menstrual cycle 10 Date of Last Pap Smear 11/08/2020 Sexual Problems? N LMP Definite N 07/28/2015 Obstetrics History GPAL:G 3 P 2 0 1 2 Type Value Full Term 2 Spontaneous 1 Living 2 Total 3 Past Encounters Encounter ID Performer Location Encounter Start Date Encounter Closed Date Diagnosis/Indication Diagnosis SNOMED-CT Code Diagnosis ICD10 Code Diagnosis Note [id number] Shavonne Youngblood [place] [address],[place] [address] 12/16/2019 10:01:00 12/16/2019 10:57:41 screening [id number] Z36.87 [id number] Arleen Perez [place] [address],[place] [address] 12/16/2019 10:02:18 12/16/2019 11:34:28 test positive 145367028 Z32.01 Risk factors addressed: Tobacco Cessation, Safe Sexual Practices, environmen evans, work hazards, travel restrictio ns, seat belt use.Eat a health well balanced diet, avoid alcohol, tobacco, and street drugs. Engage in daily low impact exercise, avoid temperatur e extremes, and cat, rodent, and bird feces.Avoi d travel to areas where zika virus is a concern.Fi rst look offered to patient. First look accepted by patient and will be scheduled. Sequential Screen handout given and discussed with patient. ildbirth classes recommende d.New OB sheet given. If previous , counseling .Pt verbalizes that she understand s the importance of above instructio ns.All questions were answered. Patient reminded to have annual well woman examinatio n and address [facility] . Elevated blood-pressure reading without diagnosis of hypertension 020951897 R03.0 Repeat blood pressure 118/78. Pt states she was very nervous about appt. No history of hypertensi on. Will recheck at next visit. [id number] Bear Lopez MD [place] [address],[place] [address] 01/14/2020 10:52:16 01/14/2020 12:26:17 screening 201684314 Z36.82 Z36.0 Z36.89 Routine an tenatal care [id number] Z34.81 [id number] Pinky Castellon [place] [address],[place] [address] 01/14/2020 10:52:46 01/14/2020 12:30:13 screening [id number] Z36.82 Z36.0 Z36.89 [id number] [address],[place] [address] 02/10/2020 14:46:10 02/12/2020 03:50:04 [id number] [facility] [address],[place] [address] 02/10/2020 14:46:26 02/10/2020 16:20:06 Routine care [id number] Z34.92 [id number] [facility] [address],[place] [address] 03/09/2020 15:21:46 03/09/2020 16:35:48 screening for malformation 559417635 Z36.3 [id number] [facility] [address],[place] [address] 03/09/2020 15:26:40 03/12/2020 22:50:16 Routine care [id number] Z34.92 [facility] [id number] G43.90 9 [id number] [facility] [address],[place] [address] 04/05/2020 13:42:04 04/05/2020 14:41:04 screening [id number] Z36.2 [id number] [facility] [address],[place] [address] 04/05/2020 13:42:20 04/06/2020 15:33:35 Routine care [id number] Z34.92 [id number] [facility] [address],[place] [address] 04/13/2020 14:54:07 04/14/2020 10:55:13 Polyhydramnios 00530828 O40.2XX0 Z3A.25 [id number] [facility] [address],[place] [address] 04/19/2020 09:18:24 04/19/2020 15:34:42 Polyhydramnios [id number] O40.2XX0 Z3A.26 [id number] [facility] [address],[place] [address] 05/03/2020 14:51:48 05/03/2020 15:24:54 Routine care 150459120 Z34.92 [id number] [facility] [address],[place] [address] 05/04/2020 13:56:53 05/04/2020 14:42:48 Gestational diabetes mellitus class A1 [id number] O24.410 O40.3XX0 Z3A.28 [id number] [facility] [address],[place] [address] 05/09/2020 13:57:07 05/09/2020 15:20:06 Polyhydramnios [id number] O40.3XX0 [id number] [facility] [address],[place] [address] 05/09/2020 13:58:09 05/09/2020 15:46:12 [id number] [facility] [address],[place] [address] 05/15/2020 14:01:29 05/15/2020 14:43:54 Polyhydramnios 09682676 O40.3XX0 Z3A.30 [id number] [facility] [address],[place] [address] 05/15/2020 14:02:04 05/16/2020 13:39:30 Routine care [id number] Z34.92 [id number] [facility] [address],[place] [address] 05/22/2020 12:28:47 05/22/2020 13:57:54 Polyhydramnios 52132853 O40.3XX[id number] [facility] [address],[place] [address] 05/29/2020 11:39:44 05/29/2020 13:16:36 Maternal obesity complicating , childbirth and the puerperium, antepartum [id number] 07 O99.213 [id number] Arleen Perez [place] [address],[place] [address] 05/29/2020 11:41:01 05/30/2020 15:55:36 Routine care 182866766 Z34.92 [id number] [facility] [address],[place] [address] 05/29/2020 11:41:27 05/29/2020 13:50:38 Gestational diabetes mellitus 94534287 O24.410 O40.3XX0 O99.[id number] [facility] [address],[place] [address] 06/01/2020 11:28:10 06/01/2020 16:06:15 Maternal obesity complicating , childbirth and the puerperium, antepartum [id number] 07 O99.213 [id number] [facility] [address],[place] [address] 06/05/2020 11:02:13 06/05/2020 14:35:01 Polyhydramnios [id number] O40.3XX0 Z3A.[id number] [facility] [address],[place] [address] 06/05/2020 11:02:52 06/05/2020 14:41:14 Maternal obesity complicating , childbirth and the puerperium, antepartum 1301341831 07 O99.213 [id number] Bear Lopez MD [place] [address],[place] [address] 06/05/2020 11:54:04 06/05/2020 14:53:25 Routine care 864069722 Z34.81 Polyhydramnios [id number] O40.3XX0 Z3A.[id number] [facility] [address],[place] [address] 06/08/2020 11:25:58 06/08/2020 12:43:35 Maternal obesity complicating , childbirth and the puerperium, antepartum [id number] [id number] [facility] [address],[place] [address] 06/12/2020 10:52:26 06/12/2020 13:38:23 Maternal obesity complicating , childbirth and the puerperium, antepartum [id number] 07 O99.213 [id number] [facility] [address],[place] [address] 06/12/2020 10:52:53 06/12/2020 13:40:28 Polyhydramnios [id number] O40.3XX0 Z3A.34 [id number] Bear Lopez MD [place] [address],[place] [address] 06/12/2020 10:53:23 06/12/2020 13:36:38 Polyhydramnios [id number] O40.3XX0 Z3A.34 [id number] [address] [facility] [address],[place] [address] 06/15/2020 11:21:29 06/15/2020 12:13:40 Maternal obesity complicating , childbirth and the puerperium, antepartum [id number] [id number] [facility] [address],[place] [address] 06/19/2020 11:24:31 06/19/2020 12:15:27 Maternal obesity complicating , childbirth and the puerperium, antepartum [id number] 07 O99.213 [id number] Arleen Perez [place] [address],[place] [address] 06/19/2020 11:24:59 06/20/2020 14:02:25 Routine care [id number] Z34.92 [id number] [facility] [address],[place] [address] 06/19/2020 12:39:47 06/19/2020 13:27:57 Polyhydramnios 26857151 O40.3XX0 Z3A.[id number] [facility] [address],[place] [address] 06/26/2020 11:20:51 06/26/2020 17:55:10 Maternal obesity complicating , childbirth and the puerperium, antepartum 9786019781 07 O99.213 [id number] Arleen Perez [place] [address],[place] [address] 06/26/2020 11:22:31 06/26/2020 17:50:02 Routine care 923437173 Z34.92 Benign ess ential hypertension complicating , childbirth and the puerperium - not delivered 811775177 O10.019 [id number] Pinky Castellon [place] [address],[place] [address] 06/26/2020 11:27:07 06/26/2020 17:54:13 Gestational diabetes mellitus 23903956 O24.[id number] [place] [address],[place] [address] 06/29/2020 11:32:14 06/29/2020 12:16:23 Maternal obesity complicating , childbirth and the puerperium, antepartum 7949406399 07 O99.213 [id number] Aisha Zepeda MD [place] [address],[place] [address] 07/03/2020 11:25:07 07/03/2020 12:23:27 Gestational diabetes mellitus class A1 60606509 O24.410 Chronic hy pertension in obstetric context 6381349 I10 [id number] [facility] [address],[place] [address] 07/03/2020 11:26:38 07/03/2020 12:02:22 Maternal obesity complicating , childbirth and the puerperium, antepartum 3482648776 [id number] [facility] [address],[place] [address] 07/06/2020 11:23:54 07/06/2020 12:12:47 Maternal obesity complicating , childbirth and the puerperium, antepartum [id number] 07 O99.213 [id number] Aisha Zepeda MD [place] [address],[place] [address] 07/18/2020 16:43:32 07/22/2020 16:45:25 Chronic hypertension in obstetric context 8775496 I10 External hemorrhoids 239 47750 K64.4 Gestationa l diabetes mellitus class A2 20907942 O24.414 care 09089160 8 Z39.2 [id number] Master Collins [place] [address],[place] [address] 08/08/2020 11:47:25 08/08/2020 14:08:17 care 109641476 Z39.2 Anxiety 51598003 F41.9 Gestationa l diabetes mellitus class A2 80111061 O24.414 Past pregn david history of gestational diabetes mellitus 390709750 Z86.32 [id number] [facility]ree [facility] [address],[place] [address] 11/08/2020 10:42:23 11/08/2020 12:07:46 Gynecologic examination 25155055 Z01.419 Take Calcium with Vitamin D 1200mg daily if not receiving in daily diet. It is strongly advised to have an annual flu shot and up can obtain at most pharmacies . If you have not had a TDap shot in the last 10 years you should obtain one as well. Discussed with patient & provided with informatio n regarding Gardisil vaccine to prevent the 4 strains for HPV that cause cervical cancer if under age 26. Encourage safe sexual practices, to use condoms and limit partners if not already in a monogamous relationsh ip. Do monthly self breast exams. Have mammogram yearly or every other year depending on family history. BRCA testing is now available for patients with strong genetic history of female cancer. If interested contact the office. Engage in daily exercise of low impact aerobic exercise 45-60 minutes 4-5 times weekly. Avoid tobacco and illicit drugs as well as using moderation with alcohol intake less than 1-2 8 oz beverages daily. This lifestyle behavior pattern will lead to less health conditions and longer life span. If BMI greater than 25 weight watchers or dietary consult advised. Patient received above instructio ns, and questions have been answered. If you have any questions please call or respond to this email. Patient was made aware of the patient portal and may obtain a paper copy of today's plan if desired. Pap ASCUS in 2016 Last pap 2019 wnl Prefers Pap updated Declined stdscreeni ng BC: none Menses regular Not Breast feeding Mixed anxi ety and depressive disorder 153282838 F41.8 Recently had a baby (Valdemar) 4mos ago. Placed on Fluoxetine for PPD. She reports she is feeling better in regards to anxiety/de pression but this medication is making her very tired. Still with some loss of motivation . She does have a new baby & we talked about being a new mom, loss of sleep from feedings in the night; she feels she has been doing well getting more sleep. She naps when he naps. He sleeps for up to 5-6hrs. She denies suicidal thoughts/i deations. She voices a family history and personal hx of anxiety/de pression in the past prior to this. Failed Zoloft trial (just didn't work for me per pt). After much discussion , we decided we would add Wellbutrin 150mg low dose coupled with her Fluoxetine 20mg. She understand s the use of these medication s together & was counseled extensivel y on Wellbutrin as well. We agreed she would return to office x 2wks to check on how she is tolerating this medication . Patient is to contact office or go to nearest ED/Urgent care if fever >/= 100.1, pain, excessive bleeding, unusual drainage or swelling in area of concern; or experienci ng worsening sx's or new onset of concerning sx's. Understand ing verbalized . All questions answered to patient satisfacti on. Understand ing verbalized . [id number] nAdree Brooks [facility] [address],[facility] [place] [address] 11/22/2020 14:05:56 11/22/2020 14:58:49 Mixed anxiety and depressive disorder 542104712 F41.8 Doing well on Wellbutrin & Fluoxetine combinatio n. Feels 150mg wellbutrin has taken the edge off but feels she would like to go up to full 300mg to resolve the last bit of decreased motivation /fatigue. We agreed to increase this medication & she will f/u x 6-8wks med check. In addition, we will do updated general labs to ensure no other issues; however, she was instructed to come see her PCP for continuing abn glucose readings. She has not done this yet. Encouraged her to contact them very soon as this could also be part of her fatigue and weight gain. She agrees & will contact her PCP. Time spent in visit is a total of 26 mins with at least 50% of visit consisting of counseling and review of plan of care. Additional precaution zoey measures were taken to minimize potential exposure to the Covid-19 virus during this patient s visit, including available hand press brake operator upon arrive, temperatur e check and being asked a series of screening questions. All staff wore face coverings during this encounter, as well as provided additional cleaning and sanitizing of all surfaces, including countertop s, pens, chairs, door handles, light switches, etc, prior to and following the patient s visit. Adult heal th examination 483257810 Z00.00 R73.09 If needs a new PCP referral placed. [id number] Andree Brooks , [facility] [address] [address] 05/23/2022 14:45:38 05/24/2022 15:12:10 Polycystic ovary syndrome 466727876 E28.2 E66.3 N92.6 Consider restarting Metform to help regulate periods & achieve weight loss goals.Did discuss weight loss management but insurance might not cover these svc's.Revi ewed exercise/l ow carb high protein/fr esh produce changes. Counseled on medication R/B's, Most common side effects, & use. All questions were answered to patient satisfacti on. Will reach out once labs are back to let her know about Metformin instructio ns/initiat ion. Time spent in visit is a total of 26 mins with at least 50% of visit consisting of counseling and review of plan of care. Generalize d anxiety disorder 02669890 F41.1 Today we agreed to start weaning from Prozac.She will decrease to 10mg daily PO for the next 4-8wks. Feels she is managing stress/anx iety well & would like to try and come off this medication . Counseled on r/b's, most common side effects of this therapy with instructtiffanie pack to stop medication with any significan t abnormal change in mood especially with thoughts of suicide/se lf-harm/ramey rm to others. Understand ing verbalized . Vitamin D deficiency 347 03497 E55.9 Hx of Liseth D defWill recheck levels [id number] Bear Lopez MD [place] [address],[facility] [place] [address] 06/25/2022 16:11:31 06/26/2022 15:35:21 Obesity 498309912 E66.9 This patient is a 21-year-ol d female who presents for weight management . We took a very thorough history. We talked about some of her goals. Talked about some of her challenges . We talked about some of her previous efforts in weight loss and her activity level. We talked about limitation s for activity. Talked about energy consumptio n energy expenditur e. She was given recommenda tions and some of these areas. We talked about the importance of resistance training and cardiovasc ular exercise. We talked about her medical history in its relationsh ip to excess body weight. We talked about treatment options. We talked about the evaluation that is appropriat e for beginning weight management . We talked about her diet and our dietitian. We agreed to a dietitian consult. We agreed to a sleep study. We agreed to metabolic testing. We performed body compositio n testing today. We reviewed those results and talked about their significan ce. We spent over 1 hour together. More than 50% was counseling . We agreed to come together in 2 weeks and initiate treatment. we agreed to sleep study. She is going to see dietitian. She has labs completed already. She agreed to start phentermin e topiramate . We had a long discussion about medication s. We agreed to start phentermin e topiramate . She was given julissa pack and precaution s. [id number] ANGELO [facility] [address] [address] 07/04/2022 15:10:44 07/04/2022 15:53:26 Insertion of intrauterine contraceptive device 58440716 Z30.430 She has been counseled on all of the r/b/a of placement of an intrauteri ne device that include but are not limited to uterine perforatio n, injury to cervix, vagina, bladder, and bowel.Risk s of bleeding due to injury or increased irregular bleeding due to progestin effect of the device. Risks of infection would be increased within the first 21 days of placement with concommita nt cervicitis . She understand s that the device will need to be removed in this instance due to increased risk of Pelvic inflammato ry disease. Patient is aware she is at higher risk for STD and if contracted she could lose her fertility. Pt is aware that if occurs that she should contact office immediatel y to rule out ectopic which could be life threatenin g. IUD will also need to be removed and this could cause miscarriag e. Patient also informed that in the event her strings are absent or embedded at the time of removal she may need to have the IUD surgically removed. She was informed of the above and properly consented. IUD placed w/o complicati on. Patient should return to office after next period to check for string placement. Patient to expect irregular bleeding but should be seen in the ED if bleeding increases to soaking a pad an hour for at least 2 hours. She verbalized understand ing. RTO x 6wks string check [id number] Andree Brooks , [facility] [address] [address] 08/16/2022 13:52:45 08/16/2022 14:20:03 IUD check 743424626 Z30.431 Patient is here for 4-6wk IUD string check. She denies complicati ons, pain, or unpleasant side effects. Happy with this control method. Wishes to continue. Polycystic ovary syndrome 644680151 E28.2 E66.3 N92.6 Opts to restart Metform 1000mg ER.She will start with 500mg at night if ER is dispensed and then increase to 1000mg ER after 2wks.Will f/u x 3mos for med check and repeat labs Unable to afford pursuing weight loss program at this time.Has stopped Phentermin e which is making her tired. Counseled on medication R/B's, Most common side effects, & use. All questions were answered to patient satisfacti on. Time spent in visit is a total of 26 mins with at least 50% of visit consisting of counseling and review of plan of care. [id number] Andree Brooks [facility] [address],[place] [address] 11/15/2022 13:43:47 11/15/2022 16:34:54 Insulin resistance 319836311 E88.81 E28.2 Tolerating metformin well @ 1500mg nightly ER.She has lost 20#'s with this addition, making nutritiona l changes & just joined a gym.She if feeling better with more energy. Removal of intrauterine device 97339825 Z30.432 Wants IUD removed.Do esn't like the random spotting that we discussed can be normal in the first 3-6mos.She is considerin g moving forward once she gets her weight & health further improved.S he will keep menstrual diary & reach out if any issues. It was explained that she may have bleeding or spotting after the removal of the device today as well. If cannot see the strings of this device we will need to get an US image to make that the device is still in place and not in an unobtainab le position. She expressed understand ing of all the above instructio ns. [id number] Cris Sousa [place] [address],[place] [address] 03/21/2023 12:48:14 03/21/2023 14:17:52 Abdominal pain in early 056965840 Z33.1 Z3A.00 [id number] Pinky Castellon [place] [address] [place] [address] 04/04/2023 12:34:28 04/04/2023 13:08:10 Uterine size for dates discrepancy 718023418 O26.841 Z3A.01 [id number] Shavonne Youngblood [place] [address],[place] [address] 04/25/2023 15:27:35 04/25/2023 16:22:54 [id number] JUAN DOLAN MD [place] [address],[place] [address] 04/25/2023 15:27:52 04/28/2023 11:44:04 Obesity 160332771 Z68.41 Cony thyroiditis 21 429090 E06.3 - levothyrox ine 100mg- followed by PCP test positive 757153443 Z32.01 1. Exam today within normal limits.2. GC/Clamydi a testing done; pap smear up to date. will f/u as indicated. 3. ACOG guidelines and plan of care for reviewed with patient. All questions answered.4 . Return to office in 5 weeks for new OB care8. Will need new OB labs at next visit.9. Genetic screening: desires. [id number] [facility] [address],[place] [address] 05/15/2023 15:21:47 05/15/2023 15:52:42 screening [id number] Z36.82 Z3A.11 [id number] JUAN DOLAN MD [place] [address],[place] [address] 05/15/2023 15:22:10 05/15/2023 16:33:32 Gestation period, 11 weeks 09780167 Z3A.11 Hypothyroi dism in 045988639 E03.9 [id number] JUAN DOLAN MD [place] [address],[place] [address] 06/11/2023 16:01:04 06/12/2023 08:51:35 Maternal obesity complicating , childbirth and the puerperium, antepartum [id number] 07 O99.212 Gestation period, 15 weeks 4249779 Z3A.15 [id number] [facility] [address] [place] [address] 07/09/2023 11:28:16 07/09/2023 13:11:33 screening for malformation 144401753 Z36.3 O99.212 O99.282 Z3A.19 [id number] JUNA DOLAN MD [place] [address],[place] [address] 07/09/2023 11:28:46 07/09/2023 13:55:53 Gestation period, 19 weeks 48051989 Z3A.19 Large for gestation age fetus 875974484 O36.62X0 [id number] Pinky Castellon [place] [address],[place] [address] 08/05/2023 11:36:00 08/05/2023 14:01:29 Large for gestation age fetus 697050260 O36.62X0 Z3A.23 [id number] JUAN DOLAN MD [place] [address],[place] [address] 08/05/2023 12:09:33 08/05/2023 14:55:07 Large for gestation age fetus 458897583 O36.62X0 Past pregn david history of section 455020315 Z98.890 Hypothyroi dism in 154958538 E03.9 [id number] Yamilka caceres [facility] [address],[place] [address] 08/26/2023 15:25:06 08/26/2023 17:30:03 Gestational diabetes mellitus class A1 05109323 O24.410 Pt here for diet teaching. Diet teaching completed. Carb counts for meals and snacks reviewed. Pt instructed on how to read nutrition labels and instructed on researchin g carb counts for fresh fruits and vegetables . Pt provided with print outs with some fresh food carb counts and online resources reinforced for checking fresh food serving sizes and carb counts. Pt instructed on blood sugar level goals and importance of checking blood sugar and keeping blood sugar log. Pt instructed on high protein low carb and provided with food recommenda tions. 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 Pt has an appt scheduled with MM for next week to review her BS log. Pt verbalized understand ing of informatio n discussed. Yamilka caceres, [place] [id number] Shavonne Youngblood [place] [address],[place] [address] 09/01/2023 11:29:25 09/01/2023 12:26:03 Maternal obesity complicating , childbirth and the puerperium, antepartum [id number] 07 O99.213 O24.410 O99.212 Z3A.27 [id number] JUAN DOLAN MD [place] [address],[place] [address] 09/01/2023 11:30:18 09/01/2023 14:06:37 screening 464993605 Z36.89 Gestationa l diabetes mellitus 46408868 O24.415 Past pregn david history of section 154250326 Z98.890 Hypothyroidism 41287275 E03.9 Large for gestation age fetus 749185629 O36.62X0 Gestation period, 27 weeks 00571139 Z3A.27 [id number] JUAN DOLAN MD [place] [address],[place] [address] 09/23/2023 15:00:28 09/23/2023 15:58:54 Gestational diabetes mellitus 29869764 O24.415 Gestation period, 30 weeks 05024070 Z3A.30 Large for gestation age fetus 091085800 O36.62X0 [id number] [facility] [address],[place] [address] 10/07/2023 14:58:51 10/07/2023 16:28:20 Gestational diabetes mellitus complicating 1415450645 9106 O24.415 O36.63X0 Z3A.32 [id number] [facility] [address],[place] [address] 10/07/2023 18:19:16 10/07/2023 18:34:19 [id number] Master Collins [place] [address],[place] [address] 10/10/2023 14:57:16 10/10/2023 15:36:56 Gestational diabetes mellitus 72258465 O24.415 [id number] [facility] [address],[place] [address] 10/10/2023 14:57:34 10/10/2023 16:03:41 Gestational diabetes mellitus 88325949 O24.410 Z3A.32 [id number] JUAN DOLAN MD [place] [address],[place] [address] 10/10/2023 14:57:50 10/13/2023 02:10:08 Gestational diabetes mellitus class A2 22814919 O24.414 Cony thyroiditis 21 006603 E06.3 Past pregn david history of section 404809511 Z98.890 Gestation period, 33 weeks 02232569 Z3A.33 [id number] Elly Somers [place] [address],[place] [address] 10/14/2023 14:58:07 10/14/2023 16:16:52 Gestational diabetes mellitus 57549983 O24.419 [id number] [facility] [address],[place] [address] 10/14/2023 14:58:27 10/14/2023 16:02:05 Gestational diabetes mellitus 76397319 O24.410 O99.283 O99.214 Z3A.33 [id number] JUAN DOLAN MD [place] [address],[place] [address] 10/14/2023 14:58:41 10/16/2023 13:37:55 Gestational diabetes mellitus 04016729 O24.419 Past pregn david history of section 286119587 Z98.890 Hypothyroidism 99424123 E03.9 Obesity 764481875 Z68.41 Gestation period, 33 weeks 09857515 Z3A.33 [id number] [facility] [address],[place] [address] 10/21/2023 15:25:18 10/21/2023 16:10:12 Gestational diabetes mellitus 09784920 O24.419 [id number] [facility] [address] [place] [address] 10/21/2023 15:25:40 10/21/2023 16:40:28 Gestational diabetes mellitus 10494321 O24.410 O99.283 O99.214 Z3A.34 [id number] JUAN DOLAN MD [place] [address],[place] [address] 10/21/2023 15:26:01 10/27/2023 01:15:32 Gestational diabetes mellitus 98793643 O24.410 O99.283 O99.214 Z3A.34 Past pregn david history of section 839176510 Z98.890 Obesity 381622033 Z68.41 Cony thyroiditis 21 308176 E06.3 Hypothyroidism 02436073 E03.9 Gestation period, 34 weeks 32586158 Z3A.34 [id number] [facility] [address],[place] [address] 10/28/2023 14:54:47 10/28/2023 15:48:05 Gestational diabetes mellitus 98776775 O24.410 O99.283 O99.214 Z3A.34 [id number] [facility] [address],[place] [address] 10/28/2023 14:55:37 10/29/2023 02:54:57 Maternal obesity complicating , childbirth and the puerperium, antepartum 2221028871 07 O99.213 O24.410 Z3A.35 [id number] JUAN DOLAN MD [place] [address],[place] [address] 10/28/2023 14:56:05 10/28/2023 18:04:07 [id number] [facility] [address],[place] [address] 11/04/2023 14:56:47 11/04/2023 15:36:40 Gestational diabetes mellitus 58041823 O24.410 O99.283 O99.214 Z3A.34 [id number] [facility] [address],[place] [address] 11/04/2023 14:57:08 11/04/2023 16:22:57 Gestational diabetes mellitus 11999393 O24.410 O99.283 O99.214 Z3A.36 [id number] JUAN DOLAN MD [place] [address],[place] [address] 11/04/2023 14:58:43 11/05/2023 04:24:48 Gestational diabetes mellitus 34490500 O24.410 O99.283 O99.214 Z3A.36 Cony thyroiditis 21 472325 E06.3 Past pregn david history of section 273108636 Z98.890 Obesity 906012052 Z68.41 Gestation period, 36 weeks 29558750 Z3A.36 [id number] [facility] [address],[place] [address] 11/11/2023 13:59:43 11/11/2023 14:37:52 Gestational diabetes mellitus 03930507 O24.410 Z3A.37 [id number] Ellydavi Somers [place] [address],[place] [address] 11/11/2023 14:00:01 11/11/2023 15:32:36 Gestational diabetes mellitus 50539035 O24.419 [id number] Mikayla Miles [facility] [address],[place] [address] 11/18/2023 14:47:06 11/18/2023 17:40:28 Gestational diabetes mellitus 75467261 O24.415 Z3A.38 Body mass index 40+ - severely obese 723912137 Z68.41 [id number] [facility] [address],[place] [address] 11/18/2023 14:47:29 11/18/2023 16:19:21 Gestational diabetes mellitus 77807294 O24.415 Z3A.38 [id number] JUAN DOLAN MD [place] [address],[place] [address] 11/18/2023 14:47:49 11/19/2023 11:24:26 Hemorrhoids 29273291 K64.9 Past pregn david history of section 370178714 Z98.890 Hypothyroidism 70092278 E03.9 Gestationa l diabetes mellitus 43269297 O24.415 Z3A.38 Gestation period, 38 weeks 34737963 Z3A.38 [id number] JUAN DOLAN MD [place] [address],[place] [address] 12/02/2023 15:57:52 12/02/2023 16:34:54 Prediabetes 768227389 R73.03 - continue metformin 1500mg daily Hypothyroidism 13401230 E03.9 - continue levothyrox ine care 64621314 8 Z39.2 S/p c section on . Incision well-heale d without any signs of infection2 . Family planning options discussed. She is unsure of what she would like to use to prevent . She will continue to abstain from intercours e until her 6wk visit.3. RTC 4wks for post-partu m check [id number] JUAN DOLAN MD [place] [address],[place] [address] 12/30/2023 16:20:09 12/30/2023 17:07:53 care 903773040 Z39.2 S/p RLTCS 5 weeks ago here today for a visit.1. Patient recovering well2. Plans to continue formula feeding3. Not interested in contracept ion at this time. Risks, benefits, and alternativ es reviewed with the patient. Discussed recommende d interpregn david interval of 18 months4. Patient instructed to follow up in 3 months for well woman exam unless need arises prior; will need pap smear [id number] MEHUL VAUGHN NP [place] [address],[place] [address] 05/25/2024 13:48:51 05/25/2024 14:43:00 Gynecologic examination 71881514 Z01.419 Annual gynecologi harmony exam performed. Patient will come back in a year unless there are new symptoms. Suggest Calcium with Vitamin D if not eating in diet. Patient advised to get annual flu shot. Recommend yearly physicals and perform monthly breast exams. Genetic testing is available for patients with family history of cancer. Engage in safe sexual practices, use condoms. Encouraged to have daily exercise. Avoid tobacco and illicit drugs, moderation of alcohol. If BMI greater than 25 dietary consult advised. If you have any questions please call or email. Pap smear- Pap w/ HPV collected today laboratory evaluation - PCP STI testing - declined Dysmenorrhea [id number] N 94.6 Recommende d ibuprofen 600 mg q6-8 hrs PRN during heavy or painful menses. Pt may also apply a heating pad PRN.Discus sed hormonal contracept buddy options for cycle regulation and to help with dysmenorrh ea, pt declined at this time.Pt to call if symptoms worsen or w/ any concerns. Health Concerns Section Related Observation LastModified by Organization Detai ls LastModified Time None Recorded Concern Status LastModified by Organization Details LastModified Time None Recorded Advance Directives Directive N: Payers Encounter Date Sequence Insurance Name Policy Number Policy Linder Covered Member ID Linder Member ID Guarantor Name 11/18/2023 1 [facility] [id number] Keshav Ervin [id number] Yoana Ervin 11/18/2023 2 [place] [facility] PUBLIC [facility] Yoana Ervin [id number] Yoana Ervin 11/18/2023 1 [facility] [id number] Keshav Ervin [id number] Yoana Ervin 11/18/2023 2 [place] [facility] PUBLIC AID Yoana Ervin [id number] Yoana Ervin 12/02/2023 1 [facility] [id number] Keshav Ervin [id number] Yoana Ervin 12/02/2023 2 [place] [facility] PUBLIC AID Yoana Ervin [id number] Yoana Ervin 12/30/2023 1 [facility] [id number] Keshav Ervin [id number] Yoana Ervin 12/30/2023 2 [place] [facility] PUBLIC AID Yoana Ervin [id number] Yoana Ervin 05/25/2024 1 [facility] [id number] Keshav Ervin [id number] Yoana Ervin 05/25/2024 2 [place] [facility] PUBLIC AID Yoana Ervin [id number] Yoana Ervin Notes Date Note Type Note Provider Name and Address Organization Details Recorded Time 12/02/2023 text/html s/p C/S 11/24/23. She presents today for her incision check. Her postop course has been unremarkable. She has minimal spotting, denies pain, fever or any other concerning symptoms. She is formula feeding and her baby is doing well. Her mood is good. JUAN DOLAN MD [address], [place], [address], [facility] 12/02/2023 16:31:44 12/30/2023 text/html S/p RLTCS on 10/27 9 at 39 weeks gestation for GDMA2. was otherwise uncomplicated. Complications with delivery: none. Patient denies any specific problems since delivery. Patient overall feeling well. Patient is formula feeding without problems. Not taking anything for pain. Has had a period yet. Bowel and bladder function are normal. Pap due this year. Denies any signs or symptoms of depression. Is coping with parenting well. Patient has not been sexually active since delivery. Patient is not interested in contraception at this time. JUAN DOLAN MD [address], [place], [address], [facility] 12/30/2023 17:04:16 05/25/2024 text/html Annual GYNReport ed bypatient.History:n o gynecologic complaints Menstrual cycle:Normal menses (Dysmenorrhea) Urinary symptoms:No hematuria; No incontinence Vulva:No genital lesion Vagina:Normal vaginal discharge Breast:No breast pain; No breast lump; No nipple discharge Current Contraception: control not practiced Sexual complaints:No sexual complaints; No pain during intercourse; Normal libido Menopausal Symptoms:No menopausal symptoms; Normal vaginal lubrication Psychological symptoms:No depression; No anxiety; No PMDD Preventive measures:Encourage self breast examination; Encourage regular exercise; Encourage no tobacco use; Encourage regular mammograms starting age 40 Patient presents for annual well woman exam. Patient denies concerns today. Patient states that her periods are more painful since childbirth 6 months ago, but manageable with ibuprofen. Pt declines BC, tracks her ovulation with Desmond narcisa. MEHUL VAUGHN NP [address], [place], [address], [facility] 05/25/2024 14:41:08 OBGyn Episode Ob Episode Information Episode Created Date Number of Fetuses Patient Bloodtype Patient rh Status Prepregnancy Weight lbs Domestic Partner Domestic Partner Phone Father Name Topology Teacher Status 12/16/19 20 1 CLOSED Fetus Data First Name Last Name Admitted to NICU Weight (g) Sex Living Outcome Pediatric Complications Fetus ID Race Codes Race Delivery Type , Spontane ous 1628 Morteza Calculation Initial Morteza Date Initial Exam Date Initial Exam Provider Initial Ultrasound Date Last Menstrual Period Date Ultra Sound Weeks Gestation 0 Eighteen To Twenty Week Morteza Update Ultra Sound Date Fundal Height At Umbil Quickening Date Ultra Sound Latest Weeks Gestation Final Morteza Confirmed By Final Morteza Confirmed Date Final Morteza Date Ultra Sound Latest Days Gestation 0 0 Menstrual History Last Menstrual Date Menses Monthly On Bcp Conception Prior Menses Frequency Hcg Plus Date Menarche Onset Age Delivery Information Delivery Date Delivery Type Labor Anesthesia Weeks Gestation Incision Type Labor Labor Length Hrs Delivered By Post Complications Tubal Sterilization Discharge Date Comments 7 D&C Discharge Information Feeding Method Contraceptive Method Maternal HG B and HCT Levels Ob Episode Information Episode Created Date Number of Fetuses Patient Bloodtype Patient rh Status Prepregnancy Weight lbs Domestic Partner Domestic Partner Phone Father Name Topology Teacher Status 01/14/20 20 1 O Positive 265 CLOSED Fetus Data First Name Last Name Admitted to NICU Weight (g) Sex Living Outcome Pediatric Complications Fetus ID Race Codes Race Delivery Type 3118.44 5 M 2399 Problems Problem Notes 3 hr unsuccessful - checking BS QID Problem Name Start Date End Date Resolution Snomed Code Not e Obesity [id number] 2xwk NST's at 32WKS Migraine 15771617 fioricet a nd neuro consult Polyhydramnios 05/09/2020 [id number] 05/28 6- 29.6 resolved Gestational diabetes mellitus 66162166 32wks 2xwk NSTs , BS QID, Wkly OB appts & serial growth u/s Hypertensive disorder 69586046 CHTN delivery 38wks Morteza Calculation Initial Morteza Date Initial Exam Date Initial Exam Provider Initial Ultrasound Date Last Menstrual Period Date Ultra Sound Weeks Gestation 07/23/2020 01/14/2020 12/16/2019 10/17/2019 8 Eighteen To Twenty Week Morteza Update Ultra Sound Date Fundal Height At Umbil Quickening Date Ultra Sound Latest Weeks Gestation Final Morteza Confirmed By Final Morteza Confirmed Date Final Morteza Date Ultra Sound Latest Days Gestation 0 [email or web address] 01/14/2020 07/23/20 20 0 Pre- Flowsheet Flowsheet Date 01/14/2020 Anthony Score Blood Edema Fundus Height Fundus Units Glucose Ketones Leukocytes Nitrite Labor Signs Protein Cervic Dilation Cervic Effacement Cervic Station 12 trace Type Weight in lbs Pre/Post Dialysis Refused Weight 262.490190252768 BP Diastolic BP Location Tested BP Systolic BP Type 80 147 Fetus Heart Rate Present A 158 Fetus Movement A No Comments +3 Glucose, This patient is a 19 yo female at 12 week gestation - to begin routine care. Flowsheet Date 02/10/2020 Anthony Score Blood Edema Fundus Height Fundus Units Glucose Ketones Leukocytes Nitrite Labor Signs Protein Cervic Dilation Cervic Effacement Cervic Station Type Weight in lbs Pre/Post Dialysis Refused BP Diastolic BP Location Tested BP Systolic BP Type Fetus Heart Rate Present Fetus Movement Comments Flowsheet Date 02/10/2020 Anthony Score Blood Edema Fundus Height Fundus Units Glucose Ketones Leukocytes Nitrite Labor Signs Protein Cervic Dilation Cervic Effacement Cervic Station trace Type Weight in lbs Pre/Post Dialysis Refused Weight 261.95624015742 BP Diastolic BP Location Tested BP Systolic BP Type 77 R arm 132 sitting Fetus Heart Rate Present A 156 Fetus Movement Comments Pt doing well. No complaints . Will have 2nd sequential drawn today. Flowsheet Date 03/09/2020 Anthony Score Blood Edema Fundus Height Fundus Units Glucose Ketones Leukocytes Nitrite Labor Signs Protein Cervic Dilation Cervic Effacement Cervic Station Type Weight in lbs Pre/Post Dialysis Refused BP Diastolic BP Location Tested BP Systolic BP Type Fetus Heart Rate Present Fetus Movement Comments Flowsheet Date 03/09/2020 Anthony Score Blood Edema Fundus Height Fundus Units Glucose Ketones Leukocytes Nitrite Labor Signs Protein Cervic Dilation Cervic Effacement Cervic Station 20 1+ Type Weight in lbs Pre/Post Dialysis Refused Weight 257.937005304543 BP Diastolic BP Location Tested BP Systolic BP Type 79 122 Fetus Heart Rate Present A 156 Fetus Movement A Yes Comments Pt has a history of migraine s. She has them 2-3 times per week. Has been treated in past by pcp. I will send out fioricet but would also like neuro consult. Pt ageed. Pt case sent to [facility]. Flowsheet Date 04/05/2020 Anthony Score Blood Edema Fundus Height Fundus Units Glucose Ketones Leukocytes Nitrite Labor Signs Protein Cervic Dilation Cervic Effacement Cervic Station Type Weight in lbs Pre/Post Dialysis Refused BP Diastolic BP Location Tested BP Systolic BP Type Fetus Heart Rate Present Fetus Movement Comments Flowsheet Date 04/05/2020 Anthony Score Blood Edema Fundus Height Fundus Units Glucose Ketones Leukocytes Nitrite Labor Signs Protein Cervic Dilation Cervic Effacement Cervic Station 25 trace Type Weight in lbs Pre/Post Dialysis Refused Weight 257.073819710322 BP Diastolic BP Location Tested BP Systolic BP Type 78 L arm 134 sitting Fetus Heart Rate Present A 150 Fetus Movement A Yes Comments h/a significantly improved w ith fiorocet. Pt has not rec'd call to schedule neuro consult. Pt case sent to [facility]. Slightly increased deidra on u/s today. Significant family history of gdm. Will do 1 hour gtt next . Flowsheet Date 04/13/2020 Anthony Score Blood Edema Fundus Height Fundus Units Glucose Ketones Leukocytes Nitrite Labor Signs Protein Cervic Dilation Cervic Effacement Cervic Station Type Weight in lbs Pre/Post Dialysis Refused BP Diastolic BP Location Tested BP Systolic BP Type Fetus Heart Rate Present Fetus Movement Comments Flowsheet Date 04/19/2020 Anthony Score Blood Edema Fundus Height Fundus Units Glucose Ketones Leukocytes Nitrite Labor Signs Protein Cervic Dilation Cervic Effacement Cervic Station Type Weight in lbs Pre/Post Dialysis Refused BP Diastolic BP Location Tested BP Systolic BP Type Fetus Heart Rate Present Fetus Movement Comments Flowsheet Date 05/03/2020 Anthony Score Blood Edema Fundus Height Fundus Units Glucose Ketones Leukocytes Nitrite Labor Signs Protein Cervic Dilation Cervic Effacement Cervic Station 30 trace Type Weight in lbs Pre/Post Dialysis Refused Weight 256.441077678135 BP Diastolic BP Location Tested BP Systolic BP Type 84 R arm 132 sitting Fetus Heart Rate Present A 140 Fetus Movement A Yes Comments Multiple elevated blood suga rs. GDM. Will schedule diet teaching pooja (discussed very basic today) and plan on starting testing at 32 weeks. Pt verbalized understanding. Pt having a boy Gunner . Flowsheet Date 05/04/2020 Anthony Score Blood Edema Fundus Height Fundus Units Glucose Ketones Leukocytes Nitrite Labor Signs Protein Cervic Dilation Cervic Effacement Cervic Station Type Weight in lbs Pre/Post Dialysis Refused BP Diastolic BP Location Tested BP Systolic BP Type Fetus Heart Rate Present Fetus Movement Comments Flowsheet Date 05/09/2020 Anthony Score Blood Edema Fundus Height Fundus Units Glucose Ketones Leukocytes Nitrite Labor Signs Protein Cervic Dilation Cervic Effacement Cervic Station Type Weight in lbs Pre/Post Dialysis Refused BP Diastolic BP Location Tested BP Systolic BP Type Fetus Heart Rate Present Fetus Movement Comments Flowsheet Date 05/09/2020 Anthony Score Blood Edema Fundus Height Fundus Units Glucose Ketones Leukocytes Nitrite Labor Signs Protein Cervic Dilation Cervic Effacement Cervic Station Type Weight in lbs Pre/Post Dialysis Refused BP Diastolic BP Location Tested BP Systolic BP Type Fetus Heart Rate Present Fetus Movement Comments Flowsheet Date 05/15/2020 Anthony Score Blood Edema Fundus Height Fundus Units Glucose Ketones Leukocytes Nitrite Labor Signs Protein Cervic Dilation Cervic Effacement Cervic Station Type Weight in lbs Pre/Post Dialysis Refused BP Diastolic BP Location Tested BP Systolic BP Type Fetus Heart Rate Present Fetus Movement Comments Flowsheet Date 05/15/2020 Anthony Score Blood Edema Fundus Height Fundus Units Glucose Ketones Leukocytes Nitrite Labor Signs Protein Cervic Dilation Cervic Effacement Cervic Station trace Type Weight in lbs Pre/Post Dialysis Refused Weight 255.456092768666 BP Diastolic BP Location Tested BP Systolic BP Type 83 L arm 139 sitting Fetus Heart Rate Present Fetus Movement Comments BS improved. 2 elevated fast ing and 4 elevated 1 hour over the last week. The elevated evening sugar was d/t ice cream. Discussed importance of high protein evening snack and evening walk when possible. Will call us in 1 week with bs numbers to make sure they are improving. Flowsheet Date 05/22/2020 Anthony Score Blood Edema Fundus Height Fundus Units Glucose Ketones Leukocytes Nitrite Labor Signs Protein Cervic Dilation Cervic Effacement Cervic Station Type Weight in lbs Pre/Post Dialysis Refused BP Diastolic BP Location Tested BP Systolic BP Type Fetus Heart Rate Present Fetus Movement Comments Flowsheet Date 05/29/2020 Anthony Score Blood Edema Fundus Height Fundus Units Glucose Ketones Leukocytes Nitrite Labor Signs Protein Cervic Dilation Cervic Effacement Cervic Station Type Weight in lbs Pre/Post Dialysis Refused BP Diastolic BP Location Tested BP Systolic BP Type Fetus Heart Rate Present Fetus Movement Comments Flowsheet Date 05/29/2020 Anthony Score Blood Edema Fundus Height Fundus Units Glucose Ketones Leukocytes Nitrite Labor Signs Protein Cervic Dilation Cervic Effacement Cervic Station Type Weight in lbs Pre/Post Dialysis Refused BP Diastolic BP Location Tested BP Systolic BP Type Fetus Heart Rate Present Fetus Movement Comments Flowsheet Date 05/29/2020 Anthony Score Blood Edema Fundus Height Fundus Units Glucose Ketones Leukocytes Nitrite Labor Signs Protein Cervic Dilation Cervic Effacement Cervic Station 33 trace Type Weight in lbs Pre/Post Dialysis Refused Weight 255.589294065929 BP Diastolic BP Location Tested BP Systolic BP Type 76 132 Fetus Heart Rate Present Fetus Movement A Yes Comments U/S today. Pt doing well. BS look good. Pt will go to get tdap and flu shot. Discussed labor options. Encouraged childbirth classes. Flowsheet Date 06/01/2020 Anthony Score Blood Edema Fundus Height Fundus Units Glucose Ketones Leukocytes Nitrite Labor Signs Protein Cervic Dilation Cervic Effacement Cervic Station Type Weight in lbs Pre/Post Dialysis Refused BP Diastolic BP Location Tested BP Systolic BP Type Fetus Heart Rate Present Fetus Movement Comments Flowsheet Date 06/05/2020 Anthony Score Blood Edema Fundus Height Fundus Units Glucose Ketones Leukocytes Nitrite Labor Signs Protein Cervic Dilation Cervic Effacement Cervic Station Type Weight in lbs Pre/Post Dialysis Refused BP Diastolic BP Location Tested BP Systolic BP Type Fetus Heart Rate Present Fetus Movement Comments Flowsheet Date 06/05/2020 Anthony Score Blood Edema Fundus Height Fundus Units Glucose Ketones Leukocytes Nitrite Labor Signs Protein Cervic Dilation Cervic Effacement Cervic Station Type Weight in lbs Pre/Post Dialysis Refused BP Diastolic BP Location Tested BP Systolic BP Type Fetus Heart Rate Present Fetus Movement Comments Flowsheet Date 06/05/2020 Anthony Score Blood Edema Fundus Height Fundus Units Glucose Ketones Leukocytes Nitrite Labor Signs Protein Cervic Dilation Cervic Effacement Cervic Station neg none 33 trace Type Weight in lbs Pre/Post Dialysis Refused Weight 252.900342810635 BP Diastolic BP Location Tested BP Systolic BP Type 81 135 Fetus Heart Rate Present A 130 Fetus Movement A Yes Comments Flowsheet Date 06/08/2020 Anthony Score Blood Edema Fundus Height Fundus Units Glucose Ketones Leukocytes Nitrite Labor Signs Protein Cervic Dilation Cervic Effacement Cervic Station Type Weight in lbs Pre/Post Dialysis Refused BP Diastolic BP Location Tested BP Systolic BP Type Fetus Heart Rate Present Fetus Movement Comments Flowsheet Date 06/12/2020 Anthony Score Blood Edema Fundus Height Fundus Units Glucose Ketones Leukocytes Nitrite Labor Signs Protein Cervic Dilation Cervic Effacement Cervic Station Type Weight in lbs Pre/Post Dialysis Refused BP Diastolic BP Location Tested BP Systolic BP Type Fetus Heart Rate Present Fetus Movement Comments Flowsheet Date 06/12/2020 Anthony Score Blood Edema Fundus Height Fundus Units Glucose Ketones Leukocytes Nitrite Labor Signs Protein Cervic Dilation Cervic Effacement Cervic Station Type Weight in lbs Pre/Post Dialysis Refused BP Diastolic BP Location Tested BP Systolic BP Type Fetus Heart Rate Present Fetus Movement Comments Flowsheet Date 06/12/2020 Anthony Score Blood Edema Fundus Height Fundus Units Glucose Ketones Leukocytes Nitrite Labor Signs Protein Cervic Dilation Cervic Effacement Cervic Station 36 Type Weight in lbs Pre/Post Dialysis Refused Weight 255.656556658160 BP Diastolic BP Location Tested BP Systolic BP Type 80 R arm 150 sitting 79 L arm 133 sitting Fetus Heart Rate Present A 145 Fetus Movement A Yes Comments to repeat ultrasound in 1 we ek for polyhydramnios, has twice weekly NSTs, BPP ease at the DE[facility] evaluation Flowsheet Date 06/15/2020 Anthony Score Blood Edema Fundus Height Fundus Units Glucose Ketones Leukocytes Nitrite Labor Signs Protein Cervic Dilation Cervic Effacement Cervic Station Type Weight in lbs Pre/Post Dialysis Refused BP Diastolic BP Location Tested BP Systolic BP Type Fetus Heart Rate Present Fetus Movement Comments Flowsheet Date 06/19/2020 Anthony Score Blood Edema Fundus Height Fundus Units Glucose Ketones Leukocytes Nitrite Labor Signs Protein Cervic Dilation Cervic Effacement Cervic Station Type Weight in lbs Pre/Post Dialysis Refused BP Diastolic BP Location Tested BP Systolic BP Type Fetus Heart Rate Present Fetus Movement Comments Flowsheet Date 06/19/2020 Anthony Score Blood Edema Fundus Height Fundus Units Glucose Ketones Leukocytes Nitrite Labor Signs Protein Cervic Dilation Cervic Effacement Cervic Station neg none 37 trace Type Weight in lbs Pre/Post Dialysis Refused Weight 252.531111324238 BP Diastolic BP Location Tested BP Systolic BP Type 82 131 Fetus Heart Rate Present A 147 Fetus Movement A Yes Comments A couple elevated blood suga rs. Diet related. Discussed importance of diet control. Otherwise doing well. Labor precautions. RTC in 1 week for routine ob visit. Flowsheet Date 06/19/2020 Anthony Score Blood Edema Fundus Height Fundus Units Glucose Ketones Leukocytes Nitrite Labor Signs Protein Cervic Dilation Cervic Effacement Cervic Station Type Weight in lbs Pre/Post Dialysis Refused BP Diastolic BP Location Tested BP Systolic BP Type Fetus Heart Rate Present Fetus Movement Comments Flowsheet Date 06/26/2020 Anthony Score Blood Edema Fundus Height Fundus Units Glucose Ketones Leukocytes Nitrite Labor Signs Protein Cervic Dilation Cervic Effacement Cervic Station Type Weight in lbs Pre/Post Dialysis Refused BP Diastolic BP Location Tested BP Systolic BP Type Fetus Heart Rate Present Fetus Movement Comments Flowsheet Date 06/26/2020 Anthony Score Blood Edema Fundus Height Fundus Units Glucose Ketones Leukocytes Nitrite Labor Signs Protein Cervic Dilation Cervic Effacement Cervic Station Type Weight in lbs Pre/Post Dialysis Refused BP Diastolic BP Location Tested BP Systolic BP Type Fetus Heart Rate Present Fetus Movement Comments Flowsheet Date 06/26/2020 Anthony Score Blood Edema Fundus Height Fundus Units Glucose Ketones Leukocytes Nitrite Labor Signs Protein Cervic Dilation Cervic Effacement Cervic Station neg none 38 trace Type Weight in lbs Pre/Post Dialysis Refused Weight 255.058676173571 BP Diastolic BP Location Tested BP Systolic BP Type 86 147 Fetus Heart Rate Present A 145 Fetus Movement A Yes Comments BS normal. Elevated bp. I re viewed blood pressure history and she did have 2 bp elevated prior to 20 weeks. I would consider her chronic hypertension. Pt denies h/a, v/d, e/p. PIH precautions discussed. Does still have occasional headaches but is not unusual for her. Discussed importance of evaluation if she has a headache that is not resolved with conservative measures. Will check labs today. Planning induction at 38 weeks. GBS collected. Declined vaginal exam. Flowsheet Date 06/29/2020 Anthony Score Blood Edema Fundus Height Fundus Units Glucose Ketones Leukocytes Nitrite Labor Signs Protein Cervic Dilation Cervic Effacement Cervic Station Type Weight in lbs Pre/Post Dialysis Refused BP Diastolic BP Location Tested BP Systolic BP Type Fetus Heart Rate Present Fetus Movement Comments Flowsheet Date 07/03/2020 Anthony Score Blood Edema Fundus Height Fundus Units Glucose Ketones Leukocytes Nitrite Labor Signs Protein Cervic Dilation Cervic Effacement Cervic Station Type Weight in lbs Pre/Post Dialysis Refused BP Diastolic BP Location Tested BP Systolic BP Type Fetus Heart Rate Present Fetus Movement Comments Flowsheet Date 07/03/2020 Anthony Score Blood Edema Fundus Height Fundus Units Glucose Ketones Leukocytes Nitrite Labor Signs Protein Cervic Dilation Cervic Effacement Cervic Station neg trace trace 1cm 30% -4 Type Weight in lbs Pre/Post Dialysis Refused Weight 253.173458250852 BP Diastolic BP Location Tested BP Systolic BP Type 80 139 78 142 Fetus Heart Rate Present A 140 Fetus Movement A Yes Comments Doing well. No bleeding, celina morales, ctx. 38 week IOL for cHTN. will schedule for Sun night cervidil. NST reactive. Did not bring BS, but only one fasting elevated (101) and one pp elevated (160). BP stable. Denies RAMEY/BV/EP. Flowsheet Date 07/06/2020 Anthony Score Blood Edema Fundus Height Fundus Units Glucose Ketones Leukocytes Nitrite Labor Signs Protein Cervic Dilation Cervic Effacement Cervic Station Type Weight in lbs Pre/Post Dialysis Refused BP Diastolic BP Location Tested BP Systolic BP Type Fetus Heart Rate Present Fetus Movement Comments Flowsheet Date 07/18/2020 Anthony Score Blood Edema Fundus Height Fundus Units Glucose Ketones Leukocytes Nitrite Labor Signs Protein Cervic Dilation Cervic Effacement Cervic Station Type Weight in lbs Pre/Post Dialysis Refused Weight 234.878012244780 BP Diastolic BP Location Tested BP Systolic BP Type 90 141 Fetus Heart Rate Present Fetus Movement Comments Menstrual History Last Menstrual Date Menses Monthly On Bcp Conception Prior Menses Frequency Hcg Plus Date Menarche Onset Age 0310/17/2019 Genetic Screening And Infection History Question Response Note Mental Retardation/Autism false Patient's Age Will Be 35 Years Or Older At Estim ated Date of Delivery false Thalassemia (Central African, Tunisian, Mediterranean, Or Background): MCV < 80 false Neural Tube Defect (Meningomyelocele, Spina Bifi da, Or Anencephaly) false Congenital Heart Defect false Down Syndrome false Marvin-Sachs (eg, Sabianism, Cajun, Hungarian-Tajik) f alse Giuliana Disease false Sickle Cell Disease Or Trait () false Hemophilia Or Other Blood Disorders false Muscular Dystrophy false Cystic Fibrosis false Fallon's Chorea false Intellectual Disability/Autism false If Yes, Was Person Tested For Fragile X? false Other Inherited Genetic Or Chromosomal Disorder false Maternal Metabolic Disorder (eg, Type 1 Diabetes , PKU) false Patient Or Baby's Father Had A Child With Defects Not Listed Above false Recurrent Loss, Or A Stillbirth false Medications (including Suppl ements, Vitamins, Herbs, OTC Drugs), Illicit/Recreational Drugs, Alcohol false If Yes, Agent(s) And Strength/Dosage false Any Other Genetic History false Live With Someone With TB Or Exposed To TB false Patient Or Partner Has History Of Genital Herpes false Rash Or Viral Illness Since Last Menstrual Perio d false History Of STD, Gonorrhea, Chlamydia, HPV, Syphi lis true Trich. Other Infection History false History of HIV false History of Hepatitis false Prior GBS-infected child false Hemoglobinopathy Or Carrier false Other Structural Defect false Recent Travel History Outside of Country false Delivery Information Delivery Date Delivery Type Labor Anesthesia Weeks Gestation Incision Type Labor Labor Length Hrs Delivered By Post Complications Tubal Sterilization Discharge Date Comments 0 38.2 Low Transvers e Discharge Information Feeding Method Contraceptive Method Maternal HG B and HCT Levels Ob Episode Information Episode Created Date Number of Fetuses Patient Bloodtype Patient rh Status Prepregnancy Weight lbs Domestic Partner Domestic Partner Phone Father Name Topology Teacher Status 05/15/20 23 1 O Positive 238.8 CLOSED Fetus Data First Name Last Name Admitted to NICU Weight (g) Sex Living Outcome Pediatric Complications Fetus ID Race Codes Race Delivery Type 3713.78 45 M true Full Term 47072 Repeat Problems Problem Notes Problem Name Start Date End Date Resolution Snomed Code Not e Large for gestation age fetus EFW 91% at 19 weeks, 96% at 23 weeks, 94% at 27 weeks, serial growth, Obesity [id number] pre-preg B KS 38 Past history of section [id number] [facility], 11/23 at 39w Gestational diabetes mellitus 08/22/2023 [id number] 32wk testing, 2hr pp gtt. 1500mg Metformin started 08/29/23- increased to 1500mg 10/01/23 Hypothyroidism [id number] 100mc g levo Morteza Calculation Initial Morteza Date Initial Exam Date Initial Exam Provider Initial Ultrasound Date Last Menstrual Period Date Ultra Sound Weeks Gestation 11/29/2023 05/15/2023 04/25/2023 9 Eighteen To Twenty Week Morteza Update Ultra Sound Date Fundal Height At Umbil Quickening Date Ultra Sound Latest Weeks Gestation Final Morteza Confirmed By Final Morteza Confirmed Date Final Morteza Date Ultra Sound Latest Days Gestation 0 [id number] 05/15/2023 11/29/19 24 0 Pre-sukhwinder Flowsheet Flowsheet Date 05/15/2023 Anthony Score Blood Edema Fundus Height Fundus Units Glucose Ketones Leukocytes Nitrite Labor Signs Protein Cervic Dilation Cervic Effacement Cervic Station Type Weight in lbs Pre/Post Dialysis Refused Weight 238.025451637924 BP Diastolic BP Location Tested BP Systolic BP Type 75 122 Fetus Heart Rate Present A 154 Fetus Movement Comments Patient presents to [facility] OB care. US confirms EDC 11/29/23, normal NT and NB. Doing well, some fatigue. No cramping or bleeding. No nausea/vomiting. Hx of elevated BP, discussed bASA. RTC 4 weeks for routine care. 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 Stopped taking progesterone at 14 weeks. Taking bASA. Anatomy next. Flowsheet Date 07/09/2023 Anthony Score Blood Edema Fundus Height Fundus Units Glucose Ketones Leukocytes Nitrite Labor Signs Protein Cervic Dilation Cervic Effacement Cervic Station Type Weight in lbs Pre/Post Dialysis Refused BP Diastolic BP Location Tested BP Systolic BP Type Fetus Heart Rate Present Fetus Movement Comments Flowsheet Date 07/09/2023 Anthony Score Blood Edema Fundus Height Fundus Units Glucose Ketones Leukocytes Nitrite Labor Signs Protein Cervic Dilation Cervic Effacement Cervic Station Type Weight in lbs Pre/Post Dialysis Refused Weight 243.303901073071 BP Diastolic BP Location Tested BP Systolic BP Type 75 116 Fetus Heart Rate Present Fetus Movement Comments Some congestion, discussed s afe meds. Son's birthday green party tomorrow! No cramping or bleeding. Will do glucose at next visit. EFW 91%, AC 81.5%. Repeat growth US next visit. Taking bASA. Flowsheet Date 08/05/2023 Anthony Score Blood Edema Fundus Height Fundus Units Glucose Ketones Leukocytes Nitrite Labor Signs Protein Cervic Dilation Cervic Effacement Cervic Station Type Weight in lbs Pre/Post Dialysis Refused BP Diastolic BP Location Tested BP Systolic BP Type Fetus Heart Rate Present Fetus Movement Comments Flowsheet Date 08/05/2023 Anthony Score Blood Edema Fundus Height Fundus Units Glucose Ketones Leukocytes Nitrite Labor Signs Protein Cervic Dilation Cervic Effacement Cervic Station Type Weight in lbs Pre/Post Dialysis Refused Weight 249.110151099109 BP Diastolic BP Location Tested BP Systolic BP Type 78 113 Fetus Heart Rate Present A 134 Fetus Movement A Yes Comments Good movement, no ctx, bleeding, LOF. Discussed suspected LGA at 96%, variable position, plan for RCS but discussed implications of macrosmia after delivery. GCT today. TSH next visit. Flowsheet Date 08/26/2023 Anthony Score Blood Edema Fundus Height Fundus Units Glucose Ketones Leukocytes Nitrite Labor Signs Protein Cervic Dilation Cervic Effacement Cervic Station Type Weight in lbs Pre/Post Dialysis Refused BP Diastolic BP Location Tested BP Systolic BP Type Fetus Heart Rate Present Fetus Movement Comments Flowsheet Date 09/01/2023 Anthony Score Blood Edema Fundus Height Fundus Units Glucose Ketones Leukocytes Nitrite Labor Signs Protein Cervic Dilation Cervic Effacement Cervic Station Type Weight in lbs Pre/Post Dialysis Refused BP Diastolic BP Location Tested BP Systolic BP Type Fetus Heart Rate Present Fetus Movement Comments Flowsheet Date 09/01/2023 Anthony Score Blood Edema Fundus Height Fundus Units Glucose Ketones Leukocytes Nitrite Labor Signs Protein Cervic Dilation Cervic Effacement Cervic Station Type Weight in lbs Pre/Post Dialysis Refused Weight 249.967688389080 BP Diastolic BP Location Tested BP Systolic BP Type 69 114 Fetus Heart Rate Present Fetus Movement A Yes Comments Doing well, baby active. No ctx, LOF, VB. Diagnosed with GDM, was still having high values with diet. Was previously on metformin 1500mg daily prior to for PCOS; will restart metformin at 500 daily, plan to uptitrate as needed. Discussed that if glucose stays elevated once back up to 1500mg dose, would recommend insulin therapy. Growth US today with EFW 94%. Plan for testing starting at 32 weeks. Discussed tdap. Flowsheet Date 09/23/2023 Anthony Score Blood Edema Fundus Height Fundus Units Glucose Ketones Leukocytes Nitrite Labor Signs Protein Cervic Dilation Cervic Effacement Cervic Station Type Weight in lbs Pre/Post Dialysis Refused Weight 246.037740456704 BP Diastolic BP Location Tested BP Systolic BP Type 77 129 Fetus Heart Rate Present A 155 Fetus Movement A Yes Comments Doing well, baby active. No cramping or bleeding. On metformin 500mg daily, reviewed sugars with 50% elevated fastings, 50% elevated dinner PP, 1/3 breakfast PP elevated. Will increase to 1000mg daily and review sugars in 1 week. tsting starting at 32 weeks. Has not yet received Tdap vaccine. RTC 2 weeks. Flowsheet Date 10/07/2023 Anthony Score Blood Edema Fundus Height Fundus Units Glucose Ketones Leukocytes Nitrite Labor Signs Protein Cervic Dilation Cervic Effacement Cervic Station Type Weight in lbs Pre/Post Dialysis Refused Weight 244.819665993396 BP Diastolic BP Location Tested BP Systolic BP Type 80 135 Fetus Heart Rate Present Fetus Movement Comments Flowsheet Date 10/07/2023 Anthony Score Blood Edema Fundus Height Fundus Units Glucose Ketones Leukocytes Nitrite Labor Signs Protein Cervic Dilation Cervic Effacement Cervic Station Type Weight in lbs Pre/Post Dialysis Refused BP Diastolic BP Location Tested BP Systolic BP Type Fetus Heart Rate Present Fetus Movement Comments Flowsheet Date 10/10/2023 Anthony Score Blood Edema Fundus Height Fundus Units Glucose Ketones Leukocytes Nitrite Labor Signs Protein Cervic Dilation Cervic Effacement Cervic Station Type Weight in lbs Pre/Post Dialysis Refused BP Diastolic BP Location Tested BP Systolic BP Type Fetus Heart Rate Present Fetus Movement Comments Flowsheet Date 10/10/2023 Anthony Score Blood Edema Fundus Height Fundus Units Glucose Ketones Leukocytes Nitrite Labor Signs Protein Cervic Dilation Cervic Effacement Cervic Station Type Weight in lbs Pre/Post Dialysis Refused BP Diastolic BP Location Tested BP Systolic BP Type Fetus Heart Rate Present Fetus Movement Comments Flowsheet Date 10/10/2023 Anthony Score Blood Edema Fundus Height Fundus Units Glucose Ketones Leukocytes Nitrite Labor Signs Protein Cervic Dilation Cervic Effacement Cervic Station Type Weight in lbs Pre/Post Dialysis Refused Weight 244.176687715889 BP Diastolic BP Location Tested BP Systolic BP Type 83 141 79 129 Fetus Heart Rate Present A 155 Fetus Movement A Yes Comments Good movement. No ctx or LOF. Blood sugars all within goal on 1500mg metformin. Continue current regimen. Had tdap vaccine. BP elevated on arrival, normal after visit. Will continue to monitor closely. BPP 10/10 today. Growth US 10/06 with EFW 86%. Continue 2x weekly testing. Discussed preadmission appointment. Flowsheet Date 10/14/2023 Anthony Score Blood Edema Fundus Height Fundus Units Glucose Ketones Leukocytes Nitrite Labor Signs Protein Cervic Dilation Cervic Effacement Cervic Station Type Weight in lbs Pre/Post Dialysis Refused Weight 241.17975537959 BP Diastolic BP Location Tested BP Systolic BP Type 74 117 Fetus Heart Rate Present Fetus Movement Comments Flowsheet Date 10/14/2023 Anthony Score Blood Edema Fundus Height Fundus Units Glucose Ketones Leukocytes Nitrite Labor Signs Protein Cervic Dilation Cervic Effacement Cervic Station Type Weight in lbs Pre/Post Dialysis Refused BP Diastolic BP Location Tested BP Systolic BP Type Fetus Heart Rate Present Fetus Movement Comments Flowsheet Date 10/14/2023 Anthony Score Blood Edema Fundus Height Fundus Units Glucose Ketones Leukocytes Nitrite Labor Signs Protein Cervic Dilation Cervic Effacement Cervic Station Type Weight in lbs Pre/Post Dialysis Refused Weight 241.85771823908 BP Diastolic BP Location Tested BP Systolic BP Type 74 117 Fetus Heart Rate Present A 140 Fetus Movement A Yes Comments Fasting glucose all within g oal, 3 PP reading over the past week elevated. May be interested in tubal, unsure. will sign forms today. Discussed permanance of procedure, as well as other LARC options if she is undecided at time of c section. Patient voices understanding. Good movement. No ctx, LOF, VB. BPP 10/10. GIven good glucose control and patient preference, ok to switch from 2x weekly NST to 1x weekly BPP/NST. RTC 1 week. Flowsheet Date 10/21/2023 Anthony Score Blood Edema Fundus Height Fundus Units Glucose Ketones Leukocytes Nitrite Labor Signs Protein Cervic Dilation Cervic Effacement Cervic Station Type Weight in lbs Pre/Post Dialysis Refused BP Diastolic BP Location Tested BP Systolic BP Type Fetus Heart Rate Present Fetus Movement Comments Flowsheet Date 10/21/2023 Anthony Score Blood Edema Fundus Height Fundus Units Glucose Ketones Leukocytes Nitrite Labor Signs Protein Cervic Dilation Cervic Effacement Cervic Station Type Weight in lbs Pre/Post Dialysis Refused BP Diastolic BP Location Tested BP Systolic BP Type Fetus Heart Rate Present Fetus Movement Comments Flowsheet Date 10/21/2023 Anthony Score Blood Edema Fundus Height Fundus Units Glucose Ketones Leukocytes Nitrite Labor Signs Protein Cervic Dilation Cervic Effacement Cervic Station Type Weight in lbs Pre/Post Dialysis Refused Weight 245.341551442947 BP Diastolic BP Location Tested BP Systolic BP Type 71 123 Fetus Heart Rate Present A 153 Fetus Movement A Yes Comments Doing well, no issues. No ct x, LOF, VB. Good movement. Wrong instructions for metformin sent out, has been taking 500mg 3x per day; will restart 1500mg daily instead. Decided she does not want a tubal ligation. Considering cycle tracking vs LARC. BPP 05/06. Continue weekly testing. RTC 1 week. Flowsheet Date 10/28/2023 Anthony Score Blood Edema Fundus Height Fundus Units Glucose Ketones Leukocytes Nitrite Labor Signs Protein Cervic Dilation Cervic Effacement Cervic Station Type Weight in lbs Pre/Post Dialysis Refused BP Diastolic BP Location Tested BP Systolic BP Type Fetus Heart Rate Present Fetus Movement Comments Flowsheet Date 10/28/2023 Anthony Score Blood Edema Fundus Height Fundus Units Glucose Ketones Leukocytes Nitrite Labor Signs Protein Cervic Dilation Cervic Effacement Cervic Station Type Weight in lbs Pre/Post Dialysis Refused BP Diastolic BP Location Tested BP Systolic BP Type Fetus Heart Rate Present Fetus Movement Comments Flowsheet Date 10/28/2023 Anthony Score Blood Edema Fundus Height Fundus Units Glucose Ketones Leukocytes Nitrite Labor Signs Protein Cervic Dilation Cervic Effacement Cervic Station Type Weight in lbs Pre/Post Dialysis Refused Weight 242.389443702836 BP Diastolic BP Location Tested BP Systolic BP Type 85 140 Fetus Heart Rate Present Fetus Movement Comments Flowsheet Date 11/04/2023 Anthony Score Blood Edema Fundus Height Fundus Units Glucose Ketones Leukocytes Nitrite Labor Signs Protein Cervic Dilation Cervic Effacement Cervic Station Type Weight in lbs Pre/Post Dialysis Refused BP Diastolic BP Location Tested BP Systolic BP Type Fetus Heart Rate Present Fetus Movement Comments Flowsheet Date 11/04/2023 Anthony Score Blood Edema Fundus Height Fundus Units Glucose Ketones Leukocytes Nitrite Labor Signs Protein Cervic Dilation Cervic Effacement Cervic Station Type Weight in lbs Pre/Post Dialysis Refused BP Diastolic BP Location Tested BP Systolic BP Type Fetus Heart Rate Present Fetus Movement Comments Flowsheet Date 11/04/2023 Anthony Score Blood Edema Fundus Height Fundus Units Glucose Ketones Leukocytes Nitrite Labor Signs Protein Cervic Dilation Cervic Effacement Cervic Station Type Weight in lbs Pre/Post Dialysis Refused Weight 240.010856744953 BP Diastolic BP Location Tested BP Systolic BP Type 80 142 78 118 Fetus Heart Rate Present A 140 Fetus Movement A Yes Comments Was on prednisone for sinus infection, had mildly elevated fasting (highest 98) and postprandial dinners (highest 150). Continues on 1500mg metformin. Patient reports increased stress and running into appointment, BP elevated on arrival. No s/s of preeclampsia. Good movement. No ctx, LOF, VB. BPP 10/10, EFW 84%, vertex. Continue testing. Flowsheet Date 11/11/2023 Anthony Score Blood Edema Fundus Height Fundus Units Glucose Ketones Leukocytes Nitrite Labor Signs Protein Cervic Dilation Cervic Effacement Cervic Station Type Weight in lbs Pre/Post Dialysis Refused BP Diastolic BP Location Tested BP Systolic BP Type Fetus Heart Rate Present Fetus Movement Comments Flowsheet Date 11/11/2023 Anthony Score Blood Edema Fundus Height Fundus Units Glucose Ketones Leukocytes Nitrite Labor Signs Protein Cervic Dilation Cervic Effacement Cervic Station Type Weight in lbs Pre/Post Dialysis Refused Weight 240.774018932186 BP Diastolic BP Location Tested BP Systolic BP Type 77 116 Fetus Heart Rate Present Fetus Movement Comments Flowsheet Date 11/18/2023 Anthony Score Blood Edema Fundus Height Fundus Units Glucose Ketones Leukocytes Nitrite Labor Signs Protein Cervic Dilation Cervic Effacement Cervic Station Type Weight in lbs Pre/Post Dialysis Refused BP Diastolic BP Location Tested BP Systolic BP Type Fetus Heart Rate Present Fetus Movement Comments Flowsheet Date 11/18/2023 Anthony Score Blood Edema Fundus Height Fundus Units Glucose Ketones Leukocytes Nitrite Labor Signs Protein Cervic Dilation Cervic Effacement Cervic Station Type Weight in lbs Pre/Post Dialysis Refused BP Diastolic BP Location Tested BP Systolic BP Type Fetus Heart Rate Present Fetus Movement Comments Flowsheet Date 11/18/2023 Anthony Score Blood Edema Fundus Height Fundus Units Glucose Ketones Leukocytes Nitrite Labor Signs Protein Cervic Dilation Cervic Effacement Cervic Station Type Weight in lbs Pre/Post Dialysis Refused Weight 241.48897495262 BP Diastolic BP Location Tested BP Systolic BP Type 78 130 Fetus Heart Rate Present A 150 Fetus Movement A Yes Comments Doing well, no issues. F/PP wnl. BPP 10/10 today. RCS scheduled 11/23. Having some issues with hemorrhoids, anusol ordered. Good movement, no ctx/LOF/VB. Menstrual History Last Menstrual Date Menses Monthly On Bcp Conception Prior Menses Frequency Hcg Plus Date Menarche Onset Age Genetic Screening And Infection History Question Response Note Mental Retardation/Autism false Patient's Age Will Be 35 Yea rs Or Older At Estimated Date of Delivery false Thalassemia (Central African, Tunisian, Mediterranean, Or Background): MCV < 80 false Neural Tube Defect (Meningom yelocele, Spina Bifida, Or Anencephaly) false Congenital Heart Defect false Down Syndrome false Marvin-Sachs (eg, Sabianism, Cajun, Hungarian-Tajik) f alse Giuliana Disease false Sickle Cell Disease Or Trait () false Hemophilia Or Other Blood Disorders false Muscular Dystrophy false Cystic Fibrosis false Fallon's Chorea false Intellectual Disability/Autism false If Yes, Was Person Tested For Fragile X? false Other Inherited Genetic Or Chromosomal Disorder false Maternal Metabolic Disorder (eg, Type 1 Diabetes , PKU) false Patient Or Baby's Father Had A Child With Defects Not Listed Above false Recurrent Loss, Or A Stillbirth false Medications (including Suppl ements, Vitamins, Herbs, OTC Drugs), Illicit/Recreational Drugs, Alcohol false levothyrox ine If Yes, Agent(s) And Strength/Dosage false Any Other Genetic History false Live With Someone With TB Or Exposed To TB false Patient Or Partner Has History Of Genital Herpes false Rash Or Viral Illness Since Last Menstrual Perio d false History Of STD, Gonorrhea, Chlamydia, HPV, Syphi lis false Other Infection History false History of HIV false History of Hepatitis false Prior GBS-infected child false Hemoglobinopathy Or Carrier false Other Structural Defect false Recent Travel History Outside of Country false Delivery Information Delivery Date Delivery Type Labor Anesthesia Weeks Gestation Incision Type Labor Labor Length Hrs Delivered By Post Complications Tubal Sterilization Discharge Date Comments 4 None Regional-Sp inal 39.2 Low Transvers e false Juan Dolan MD Gestation al diabetes mellitus, History of section,H ypothyroi dism,Larg e for gestation age fetus,Obe sity Discharge Information Feeding Method Contraceptive Method Maternal HG B and HCT Levels
== END 2024-10-23 08:58 | disposition home or self-care (01) ==
LOC: CHSIMG 08:58
PROVIDERS: PCP Family Medicine; Visit Provider Nurse Practitioner Family
DX: G43.909 Migraine, unspecified, not intractable, without status migrainosus (principal)
CPT/HCPCS: 70551

== ENCOUNTER 2025-05-25 15:02 | Emergency (ER) | payer OTHER, MEDICAID, SELFPAY ==
[2025-05-25 15:06] VITALS: BP 158/78; PULSE 106; RESP 20; TEMP 36.8; O2SAT 99
--- NOTE | 2025-05-25 15:18 | ED.URI ---
HPI - URI/Sore Throat General Chief Complaint: Upper Respiratory Infection Stated Complaint: URI Symptoms Time Seen by Provider: 05/25/25 15:25 Source: patient and RN notes reviewed Mode of arrival: ambulatory Limitations: no limitations History of Present Illness HPI Narrative: 24-year-old female who is 32 weeks presents with concern for 1 day history of sore throat, nasal congestion, productive cough. Reports the productive cough is at night time and she has a hard time sleeping. She reports she was exposed to the flu MD elicited complaint: cough Related Data Home Medications ?Medication ?Instructions ?Recorded ?Confirmed ?Last Taken ?Type fluoxetine 20 mg capsule 20 mg PO DAILY 03/22/25 03/22/25 Unknown History 05/25/25 Unknown History blood sugar diagnostic (Contour 05/25/25 05/25/25 Unknown History Plus Test Strip) blood-glucose meter (Contour Plus 05/25/25 05/25/25 Unknown History Blue Meter) levothyroxine 88 mcg tablet mcg 05/25/25 Unknown History Allergies Allergy/AdvReac Type Severity Reaction Status Date / Time No Known Allergies Allergy Verified 05/25/25 15:11 Review of Systems Review of Systems: CONSTITUTIONAL: Denies malaise, chills, sweats, or fever. EYES: Denies visual changes, redness, or discharge. ENT: Reports rhinorrhea, congestion, and sore throat. CARDIOVASCULAR: Denies chest pain, palpitations, or edema. RESPIRATORY: Reports productive cough. Denies dyspnea. SKIN: Denies rash or itching. MUSCULOSKELETAL: Denies myalgia. NEUROLOGIC: Denies headache. All systems reviewed & are unremarkable except as noted in HPI and below PMFSH Past Medical History Medical History (Updated 05/25/25 @ 15:31 by Alisa Hough APRN) Gestational diabetes and not yet delivered Obesity Hypertension Surgical History Surgical History (Updated 11/25/23 @ 14:01 by Juan Mccarthy MD) History of section Family History Family History Other Unknown family medical history Social History Social History Smoking packs per day: 1 Smoking cigarettes per day: 20.0 Years smoked: 7 Smoking pack-years: 7.00 Smoking status: Former smoker Tobacco type: cigarettes Second hand tobacco smoke exposure: No Smoking end date: 07/28/20 Substance use: never Do You Feel Safe in your Home?: Yes Lack of Transportation: No Lack of Food: Never True Current Housing: I Have Housing Concerned About Future Housing: No Difficulty Paying Gas/Electric Bills: No Difficulty Paying for Meds: No Currently Unemployed: No Education: High School Diploma/GED Difficulty w/ Childcare or Family Care: No Gender identity (if verbalized by the patient): Female Spiritual care concerns: No Comments At time of signature, agree with nursing past medical, surgical, social and family history. There is no relevant family history pertinent to the presenting complaint Exam Narrative: GENERAL: Well-appearing, well-nourished, and in no acute distress. HEAD: Normocephalic EYES: PERRLA, conjunctivae clear ENT: Nares clear. Mucous membranes moist. TM pearly lyn with dull light reflex bilaterally; no tragal tenderness. Oropharynx not erythematous without lesions. Tonsils not enlarged and without exudate, no drooling, no hoarseness, no trismus, uvula midline. NECK: Supple. No lymphadenopathy CHEST: Clear to auscultation, breath sounds equal. No wheezing, rhonchi, rales, or stridor. No respiratory distress, speaks in full sentences. HEART: Regular rate and rhythm. No murmur heard. SKIN: Warm, dry, no rash. NEURO: Alert and oriented x3. PSYCH: Normal mood and affect Course Course Emergency Course: Patient is aware of diagnosis, understands and agrees to treatment plan. Anticipatory guidance given. Patient agrees to follow-up as directed and is aware of reasons to seek care at the emergency department. Portions of this record may have been created with voice recognition software Level of Care: Express Care Visit Vital Signs Vital signs: Vital Signs Temperature 98.3 F 05/25/25 15:06 Pulse Rate 106 H 05/25/25 15:06 Respiratory Rate 20 05/25/25 15:06 Blood Pressure 158/78 H 05/25/25 15:06 Pulse Oximetry 99 05/25/25 15:06 Oxygen Delivery Room Air 05/25/25 15:06 Temperature 98.3 F 05/25/25 15:06 Pulse Rate 106 H 05/25/25 15:06 Respiratory Rate 20 05/25/25 15:06 Blood Pressure 158/78 H 05/25/25 15:06 Pulse Oximetry 99 05/25/25 15:06 Oxygen Delivery Room Air 05/25/25 15:06 Reviewed. MDM - URI/Sore Throat MDM Narrative Medical decision making narrative: Differential diagnosis considered: Downing virus, strep pharyngitis, allergic rhinitis, upper respiratory tract infection, sinusitis, rhinosinusitis, nasopharyngitis. viral pharyngitis, otitis media, otitis externa, pneumonia, bronchitis, viral cough syndrome, viral syndrome, and influenza. Exam findings show no acute concerns or changes; patient is non-toxic appearing and is in no distress. Patient is appropriate for outpatient treatment and follow-up. Lab Data Attestation: I reviewed the patient's lab results. Critical Care Time Critical Care Time Critical Care Time: No Discharge Plan Discharge Clinical Impression: Upper respiratory infection Patient Disposition: Home Condition: Stable Instructions: Antibiotic Form Additional Instructions: Viral illness may last between 7-21 days; antibiotics do not cure viral illness and are NOT recommended at this time. Recommend antihistamine such as Benadryl at night time and Zyrtec or Parisa during the day Use inhaler as needed for cough, wheezing, shortness of breath or chest tightness. Also, recommend symptomatic treatment includes: rest, fluids, and increase humidity of the air at home. Recommend Acetaminophen as directed on the bottle to reduce fever, pain, headache. Avoid smoking/second-hand smoke. Please schedule a follow-up visit with your wardrobe assistant or personal physician for further evaluation and treatment within 3-5days. Including recheck and discussion of your blood pressure. If your symptoms persist, change or worsen significantly before you can contact your personal physician then please, without delay, go to the emergency department for further evaluation. Patient Language: Finnish Prescriptions: New albuterol sulfate 90 mcg/actuation HFA aerosol inhaler 2 puff INHALATION QID PRN (Reason: shortness of breath or wheezing) Qty: 8.5 0RF fluticasone propionate [Flonase Allergy Relief] 50 mcg/actuation spray,suspension 2 spray NASAL DAILY 14 Days Qty: 15.8 0RF Rx Instructions: administer into each nostril No Action (DME) blood-glucose meter [Contour Plus Blue Meter] Misc MISCELLANEOUS (DME) Contour Plus Test Strip Strip MISCELLANEOUS levothyroxine 88 mcg tablet fluoxetine 20 mg capsule 20 mg PO DAILY Patient Comments: ... Follow-up/Referrals: Juan Mccarthy MD [Primary Care Provider, MACHINE HOOP MAKER HELPER] Time of Disposition: 15:34
[2025-05-25 15:28] LABS: EDCOVIDSCREEN Negative (Negative); EDINFLUASCREEN Negative (Negative); EDINFLUBSCREEN Negative (Negative); EDSTREPNEGPOS1 Negative (Negative)
--- OUTSIDE RECORDS SUMMARY | 2025-05-25 17:05 | XMS_ITS | Clinical Summary ---
Author Organization [facility] [address] Address [address] [place] [address] Care Team Providers Care Service Center Technician Name Role Phone Monet Torres MD Primary Care Provider [phone] Monet Torres MD Unavailable [phone] Allergies No known active allergies Medications metFORMIN (GLUCOPHAGE) 1,000 mg tablet Take 1 tablet (1,000 mg total) by mouth 2 (two) times a day with meals Active rizatriptan HEAD MILLER (MAXALT-HEAD MILLER) 10 mg disintegrating tabletIndications: Migraine Take 1 tablet (10 mg total) by mouth every 2 (two) hours as needed for migraine May repeat in 2 hours if unresolved. Do not exceed 30 mg in 24 hours. 9 tablet 3 09/13/19 23 Active topiramate (TOPAMAX) 50 mg tabletIndications: Chronic migraine without aura without status migrainosus, not intractable TAKE 1/2 TABLET(25 MG) BY MOUTH TWICE DAILY FOR 1 WEEK THEN TAKE 1 TABLET BY MOUTH TWICE DAILY 160 tablet 1 11/19/19 23 Active Additional Information Patient not taking.Reported on 10/07/2024 dextroamphetamine- amphetamine (ADDERALL) 7.5 mg tablet Take 1 tablet (7.5 mg total) by mouth daily Active amitriptyline (ELAVIL) 25 mg tabletIndications: Chronic migraine without aura without status migrainosus, not intractable Take one tablet po qhs for one week, then two tablets po qhs 60 tablet 3 12/20/19 Active Additional Information Patient not taking.Reported on 10/07/2024 buPROPion (WELLBUTRIN) 75 mg tablet 1 (ONE) TABLET DAILY TAKE WITH 150MG TABLET 09/24/19 Active buPROPion XL (WELLBUTRIN XL) 150 mg 24 hr tablet Take 1 tablet (150 mg total) by mouth every morning 09/17/19 Active Nurtec ODT tablet,disintegrat ing 1 TAB ONTO THE TONGUE EVERY OTHER DAY NEEDED FOR MIGRAINE HEADACHE 07/31/19 Active levothyroxine (SYNTHROID) 88 mcg tablet Take 1 tablet (88 mcg total) by mouth daily 08/21/19 Active galcanezumab-gnlm (Emgality Syringe) 120 mg/mL syringeIndications :Migraine Prevention Inject 240 mg under the skin every 30 (thirty) days for 30 days, THEN 120 mg every 30 (thirty) days. 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 Gender Identity Not on file Sexual Orientation [...] 36.6 C (97.8 F) 06/28/2018 1:43 PM NECKTIE MAKER Respiratory Rate 18 03/25/2023 10:5 7 AM CDT Oxygen Saturation 93% 10/07/2024 12: 59 PM CDT Inhaled Oxygen Concentration - - Weight 115.8 kg (255 lb 3.2 oz) 025 12:59 PM CDT Height 165.1 cm (5' 5) 10/07/2024 12:5 9 PM CDT Body Mass Index 42.47 10/07/2024 12:59 PM CDT Plan of Treatment Health Maintenance Due Date Last Done Comments Cervical Cancer Screening 1998 Depression Screening 1998 Hepatitis C Screening 1998 Regular Well Visit/Exam 18-64 2016 Influenza Vaccine (#1) 2025 , 07/13/2020, 05/12/2018, Additional history exists DTaP/Tdap/Td Vaccine (8 - Td or Tdap) 07/13/2030 07/13/2020, 05/07/2010, 10/24/2003, Additional history exists Hepatitis B Screening Completed 10/04/2002 , 06/02/2002, 06/02/2002, Additional history exists Varicella Vaccines Completed 03/07/2004, 04/21/2002 HPV Vaccines Completed 09/01/2012, 07/29, 05/07/2010 Pneumococcal vaccine <65 Aged Out No longer eligible based on patient's age to complete this topic Insurance IDPA [facility] CHOICE PLUS [facility] CHOICE PLUS [employer] Care Teams Service Center Technician Relationship Specialty Start Date End Date Monet Torres MD [address] [place] [address] PCP - General Family Medicine 09/13/22 Monet Torres MD [address] [place] [address] Family Medicine 09/13/22
--- OUTSIDE RECORDS SUMMARY | 2025-05-25 17:05 | XMS_ITS | Clinical Summary ---
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 Gender Identity Female 11/20/2019 3:07 AM CDT [...] 5:46 PM CDT Height 162.6 cm (5' 4) 02/26/2020 5:46 PM CDT Body Mass Index 45.32 02/26/2020 5:46 PM CDT Plan of Treatment Health Maintenance Due Date Last Done Comments Annual Physical 2001 Hepatitis C 2016 Pneumococcal Vaccine: Pediatrics (0 to 5 Years) and At-Risk Patients (6 to 49 Years) (1 of 2 - PCV) 2017 DTaP, Tdap and Td Vaccines (7 - Td or Tdap) 05/07/2020 05/07/2010, 10/24/2003, 04/21/2002, Additional history exists Cervical Cancer Screening Pap Smear (Age 21 to 29) Every 3 Years 11/09/2023 11/08/2020, 11/08/2020, 11/08/2020 Cervical Cancer Screening 11/09/2023 COVID-19 Vaccine ( season) 2025 Influenza Adult (#1) 2025 05/12/2018, 05/19/2017, 05/07/2010 RSV Immunization or 60+ Years (1 - 1-dose 75+ series) 2073 Hepatitis B Vaccines Completed 10/04/2002, 06/02/2002, 1998 Hepatitis A Vaccines Completed 12/06/2005, 05/03/20 05 Meningococcal Vaccine Aged Out 05/07/2010 No jesus [...] patient's age to complete this topic Insurance [facility] MEDICAID [facility] Care Teams Glue Drier Operator Relationship Specialty Start Date End Date Monet Torres MD [address] [place] [address] PCP - General FAMILY PRACTICE 07/19/19
--- OUTSIDE RECORDS SUMMARY | 2025-05-25 17:05 | XMS_ITS | Continuity of Care Document ---
Author Organization [facility] Address [address] [place] [address] Care Team Providers Care Collar Feller Name Role Phone CASSIE SANTAMARIA Primary Care Provider Assessment No assessment recorded. Plan of Treatment Reminders Order Date Submit Date Provider Last Modified By Organization Details Last Modified Time Details Appointments U/S OB BPP 2024 09:30A M ULTRASOUND Not available Not available Not available NST 2024 10:00A M NST SCHEDULE Not available Not available Not available OB ROUTINE 2024 10:45A Jesus Manuel DOLAN MD Not available Not available Not available U/S OB BPP 2024 08:30A M ULTRASOUND Not available Not available Not available NST 2024 09:00A M NST SCHEDULE Not available Not available Not available OB ROUTINE 2024 09:30A Jesus Manuel DOLAN MD Not available Not available Not available U/S OB BPP 2024 09:30A M ULTRASOUND Not available Not available Not available NST 2024 10:00A M NST SCHEDULE Not available Not available Not available OB ROUTINE 2024 10:45A Jesus Manuel DOLAN MD Not available Not available Not available U/S OB BPP 2024 09:00A M ULTRASOUND Not available Not available Not available NST 2024 09:30A M NST SCHEDULE Not available Not available Not available OB ROUTINE 2024 10:00A Jesus Manuel DOLAN MD Not available Not available Not available SURG CSectio n 2024 07:30A M ALYSA DOLAN MD Not available Not available Not available U/S OB BPP 2024 09:00A M ULTRASOUND Not available Not available Not available NST 2024 09:30A M NST SCHEDULE Not available Not available Not available OB ROUTINE 2024 10:00A M ALYSA DOLAN MD Not available Not available Not available U/S OB BPP 2024 09:00A M ULTRASOUND Not available Not available Not available NST 2024 09:30A M NST SCHEDULE Not available Not available Not available OB ROUTINE 2024 10:00A M ALYSA DOLAN MD Not available Not available Not available SURG POST OP 2024 02:00P Jesus Manuel DOLAN MD Not available Not available Not available Lab None recorde d. Referral None recorde d. Procedures None recorde d. Surgeries None recorde d. Imaging None recorde d. Medication Orders None recorde d. Patient TargetsNo targets recorded. Patient InstructionsNo instructions recorded. Reason for Referral None Reported. Results Created Date Observation Date Name Description Value Unit Range Abnormal Flag Note LastModifiedBy Organization Detail LastModifiedTime 12/30/19 25 12/29/2024 [UNIT Y] ANEUP LOIDY NIPT fraction 5.8% normal Not Available [facility] [address], [place], [address], 12/29/2024 05:20:42 12/30/19 25 12/29/2024 [UNIT Y] ANEUP LOIDY NIPT 22Q11.2 microdeletio n LOW RISK <1 in 10,000 normal Not Available [facility] [address], [place], [address], 12/29/2024 05:20:42 12/30/19 25 12/29/2024 [UNIT Y] ANEUP LOIDY NIPT sex chromosome aneuploidy NOT DETECT ED normal Not Available [facility] [address], [place], [address], 12/29/2024 05:20:42 12/30/19 25 12/29/2024 [UNIT Y] ANEUP LOIDY NIPT monosomy X LOW RISK <1 in 10,000 normal Not Available [facility] [address], [place], [address], 12/29/2024 05:20:42 12/30/19 25 12/29/2024 [UNIT Y] ANEUP LOIDY NIPT trisomy 13 LOW RISK <1 in 10,000 normal Not Available [facility] [address], [place], [address], 12/29/2024 05:20:42 12/30/19 25 12/29/2024 [UNIT Y] ANEUP LOIDY NIPT trisomy 18 LOW RISK <1 in 10,000 normal Not Available [facility] [address], [place], [address], 12/29/2024 05:20:42 12/30/19 25 12/29/2024 [UNIT Y] ANEUP LOIDY NIPT trisomy 21 LOW RISK <1 in 10,000 normal Not Available [facility] [address], [place], [address], 12/29/2024 05:20:42 12/30/19 25 12/29/2024 [UNIT Y] ANEUP LOIDY NIPT sex FEMALE normal Not Available [facility] [address], [place], [address], 12/29/2024 05:20:42 12/30/19 25 12/29/2024 [UNIT Y] ANEUP LOIDY NIPT gestation SINGLE TON normal Not Available [facility] [address], [place], [address], 12/29/2024 05:20:42 12/30/19 25 12/29/2024 [UNIT Y] ANEUP LOIDY NIPT for detailed report, see pdf See PDF normal Not Available [facility] [address], [place], [address], 12/29/2024 05:20:42 12/25/19 25 12/24/2024 CULTU RE: URINE result report SEE RESULT S BELOW Test: Cultu re: Urine Speci men Sourc e: Urine - Clean Catch Speci men Type: Urine Speci men Date: 2024 1555 Resul t Date: 025 0608 Resul t Statu s: Final resul t Abnor mal: No Resul ting Lab: [facility] [address] [facility] [address] Tel: [phone] CULTU RE ----- ----- ----- --- No growt h in 1 day (dete ction level of 10,00 0 colon ies / ml.) Not Available [facility] (Lab) [address], [place], [address], 12/26/2024 07:11:49 12/25/19 25 12/24/2024 drug scree n, urine Amphetamines : negati ve Not Available [facility] [address], [place], [address], 12/24/2024 15:17:16 12/25/19 25 12/24/2024 drug scree n, urine Cannabinoids : negati ve Not Available [facility] [address], [place], [address], 12/24/2024 15:17:16 12/25/19 25 12/24/2024 drug scree n, urine Cocaine: negati ve Not Available [facility] [address], [place], [address], 12/24/2024 15:17:16 12/25/19 25 12/24/2024 drug scree n, urine Opiates: negati ve Not Available [facility] [address], [place], [address], 12/24/2024 15:17:16 12/25/19 25 12/24/2024 drug scree n, urine Phenocyclidi ne: negati ve Not Available [facility] [address], [place], [address], 12/24/2024 15:17:16 12/25/19 25 12/24/2024 drug scree n, urine Barbiturates : negati ve Not Available [facility] [address], [place], [address], 12/24/2024 15:17:16 12/25/19 25 12/24/2024 drug scree n, urine Benzodiazepi abel: negati ve Not Available [facility] [address], [place], [address], 12/24/2024 15:17:16 12/25/19 25 12/24/2024 drug scree n, urine Ethanol: negati ve Not Available [facility] [address], [place], [address], 12/24/2024 15:17:16 12/25/19 25 12/24/2024 drug scree n, urine Hallucinogen s: negati ve Not Available [facility] [address], [place], [address], 12/24/2024 15:17:16 12/25/19 25 12/24/2024 drug scree n, urine Inhalants: negati ve Not Available [facility] [address], [place], [address], 12/24/2024 15:17:16 12/25/19 25 12/24/2024 drug scree n, urine Anabolic Steroids: negati ve Not Available [facility] [address], [place], [address], 12/24/2024 15:17:16 12/25/19 25 12/24/2024 drug scree n, urine Other: negati ve Not Available [address], [place], [address], 12/24/2024 15:17:16 03/15/2003/15/2025 CMP/C BC/UR IC ACID WBC 11.2 10'3/ uL 3.5-10 .5 high Not Available [facility] (Lab) [address], [place], [address], 03/16/2025 07:01:11 03/15/20 25 03/15/2025 CMP/C BC/UR IC ACID RBC 4.43 10'6/ uL (based on docume nted legal sex) 3.80-5 .20 Not Available [facility] (Lab) [address], [place], [address], 03/16/2025 07:01:11 03/15/20 25 03/15/2025 CMP/C BC/UR IC ACID HGB 9.7 g/dL (based on docume nted legal sex) 11.6-1 5.4 low Not Available [facility] (Lab) [address], [place], [address], 03/16/2025 07:01:11 03/15/20 25 03/15/2025 CMP/C BC/UR IC ACID HCT 31.2 % (based on docume nted legal sex) 34.0-4 5.0 low Not Available [facility] (Lab) [address], [place], [address], 03/16/2025 07:01:11 03/15/20 25 03/15/2025 CMP/C BC/UR IC ACID MCV 70.4 fL 80.0-9 9.0 low Not Available [facility] (Lab) [address], [place], [address], 03/16/2025 07:01:11 03/15/20 25 03/15/2025 CMP/C BC/UR IC ACID MCH 21.9 pg 27.0-3 4.0 low Not Available [facility] (Lab) [address], [place], [address], 03/16/2025 07:01:11 03/15/2003/15/2025 CMP/C BC/UR IC ACID MCHC 31.1 g/dL 32.0-3 5.5 low Not Available [facility] (Lab) [address], [place], [address], 03/16/2025 07:01:11 03/15/20 25 03/15/2025 CMP/C BC/UR IC ACID RDW 17.6 % 11.0-1 5.0 high Not Available [facility] (Lab) [address], [place], [address], 03/16/2025 07:01:11 03/15/20 25 03/15/2025 CMP/C BC/UR IC ACID plt 250 10'3/ uL 150-40 0 Not Available [facility] (Lab) [address], [place], [address], 03/16/2025 07:01:11 03/15/20 25 03/15/2025 CMP/C BC/UR IC ACID MPV 11.0 fL 8.8-12 .1 Not Available [facility] (Lab) [address], [place], [address], 03/16/2025 07:01:11 03/15/2003/15/2025 CMP/C BC/UR IC ACID NRBC's 0.0 % 0.0 Not Available [facility] (Lab) [address], [place], [address], 03/16/2025 07:01:11 03/15/2003/15/2025 CMP/C BC/UR IC ACID absolute NRBCs 0.0 10'3/ uL no refere nce range establ ished Not Available [facility] (Lab) [address] [place], [address], 03/16/2025 07:01:11 03/15/2003/15/2025 CMP/C BC/UR IC ACID neutrophils 73.8 % 34.0-7 3.0 high Not Available [facility] (Lab) [address] [place], [address], 03/16/2025 07:01:11 03/15/20 25 03/15/2025 CMP/C BC/UR IC ACID lymphocytes 18.8 % 15.0-5 0.0 Not Available [facility] (Lab) [address], [place], [address], 03/16/2025 07:01:11 03/15/2003/15/2025 CMP/C BC/UR IC ACID monocytes 5.4 % 1.0-15 .0 Not Available [facility] (Lab) [address], [place], [address], 03/16/2025 07:01:11 03/15/2003/15/2025 CMP/C BC/UR IC ACID eosinophils 0.8 % 0.0-8. 0 Not Available [facility] (Lab) [address], [place], [address], 03/16/2025 07:01:11 03/15/2003/15/2025 CMP/C BC/UR IC ACID basophils 0.3 % 0.0-2. 0 Not Available [facility] (Lab) [address] [place], [address], 03/16/2025 07:01:11 03/15/2003/15/2025 CMP/C BC/UR IC ACID immature granulocytes 0.9 % no define d refere nce range Immat ure Granu locyt es (IG) repre sents autom ated enume ratio n of Metam yeloc ytes, Myelo cytes and Promy elocy yg when IG is < 5%. Blast s are not inclu ded in IG and repor esperanza separ ately if prese nt. Not Available [facility] (Lab) [address], [place], [address], 03/16/2025 07:01:11 03/15/20 25 03/15/2025 CMP/C BC/UR IC ACID absolute neutrophils 8.3 10'3/ uL 1.5-8. 0 high Not Available [facility] (Lab) [address], [place], [address], 03/16/2025 07:01:11 03/15/20 25 03/15/2025 CMP/C BC/UR IC ACID absolute lymphocytes 2.1 10'3/ uL 1.0-4. 0 Not Available [facility] (Lab) [address], [place], [address], 03/16/2025 07:01:11 03/15/20 25 03/15/2025 CMP/C BC/UR IC ACID absolute monocytes 0.6 10'3/ uL 0.2-1. 0 Not Available [facility] (Lab) [address], [place], [address], 03/16/2025 07:01:11 03/15/20 25 03/15/2025 CMP/C BC/UR IC ACID absolute eosinophils 0.1 10'3/ uL 0.0-0. 6 Not Available [facility] (Lab) [address], [place], [address], 03/16/2025 07:01:11 03/15/2003/15/2025 CMP/C BC/UR IC ACID absolute basophils 0.0 10'3/ uL 0.0-0. 3 Not Available [facility] (Lab) [address] [place], [address], 03/16/2025 07:01:11 03/15/20 25 03/15/2025 CMP/C BC/UR IC ACID absolute immature granulocytes 0.1 10'3/ uL 0.00-0 .10 Refer ence range s for nonbi nary/ inter sex or unspe cifie d gende r patie nts have not been estab lishe caprice Little e refer to the [facility] for range s estab franklin d for cisge nder patie nts and evalu ate in the clini carlos kapil xt of the indiv idual patie nt: https ://rajni casanova book. nm.or g/gen derx Not Available [facility] (Lab) [address], [place], [address], 03/16/2025 07:01:11 03/15/20 25 03/15/2025 CMP/C BC/UR IC ACID sodium 137 mmol/ L 133-14 6 Not Available [facility] (Lab) [address], [place], [address], 03/16/2025 07:01:11 03/15/20 25 03/15/2025 CMP/C BC/UR IC ACID potassium 4.0 mmol/ L 3.5-5. 1 Not Available [facility] (Lab) [address], [place], [address], 03/16/2025 07:01:11 03/15/20 25 03/15/2025 CMP/C BC/UR IC ACID chloride 104 mmol/ L 98-107 Not Available [facility] (Lab) [address], [place], [address], 03/16/2025 07:01:11 03/15/20 25 03/15/2025 CMP/C BC/UR IC ACID carbon dioxide 24 mmol/ L 21-31 Not Available [facility] (Lab) [address] [place], [address], 03/16/2025 07:01:11 03/15/20 25 03/15/2025 CMP/C BC/UR IC ACID anion gap 9 mmol/ L 4-13 Not Available [facility] (Lab) [address] [place], [address], 03/16/2025 07:01:11 03/15/20 25 03/15/2025 CMP/C BC/UR IC ACID blood urea nitrogen 4 mg/dL 7-25 low Not Available [facility] (Lab) [address], [place], [address], 03/16/2025 07:01:11 03/15/20 25 03/15/2025 CMP/C BC/UR IC ACID creatinine 0.45 mg/dL 0.60-1 .30 low Not Available [facility] (Lab) [address], [place], [address], 03/16/2025 07:01:11 03/15/20 25 03/15/2025 CMP/C BC/UR IC ACID egfrcr (CKD-epi 2020) >90 mL/mi n/1.7 3_m2 >=60 Not Available [facility] (Lab) [address], [place], [address], 03/16/2025 07:01:11 03/15/20 25 03/15/2025 CMP/C BC/UR IC ACID calcium 8.6 mg/dL 8.3-10 .5 Not Available [facility] (Lab) [address], [place], [address], 03/16/2025 07:01:11 03/15/20 25 03/15/2025 CMP/C BC/UR IC ACID glucose 81 mg/dL 70-100 Not Available [facility] (Lab) [address], [place], [address], 03/16/2025 07:01:11 03/15/2003/15/2025 CMP/C BC/UR IC ACID protein, total 6.4 g/dL 6.4-8. 3 Not Available [facility] (Lab) [address] [place], [address], 03/16/2025 07:01:11 03/15/20 25 03/15/2025 CMP/C BC/UR IC ACID albumin 3.6 g/dL 3.5-5. 0 Not Available [facility] (Lab) [address] [place], [address], 03/16/2025 07:01:11 03/15/20 25 03/15/2025 CMP/C BC/UR IC ACID ALT 5 units /L 9-43 low Not Available [facility] (Lab) [address], [place], [address], 03/16/2025 07:01:11 03/15/20 25 03/15/2025 CMP/C BC/UR IC ACID alkaline phosphatase 72 units /L 34-104 Not Available [facility] (Lab) [address], [place], [address], 03/16/2025 07:01:11 03/15/20 25 03/15/2025 CMP/C BC/UR IC ACID AST 11 units /L 13-39 low Not Available [facility] (Lab) [address], [place], [address], 03/16/2025 07:01:11 03/15/20 25 03/15/2025 CMP/C BC/UR IC ACID bilirubin, total 0.4 mg/dL 0.2-1. 2 Not Available [facility] (Lab) [address], [place], [address], 03/16/2025 07:01:11 03/15/20 25 03/15/2025 CMP/C BC/UR IC ACID uric acid 3.8 mg/dL 2.3-6. 6 Not Available [facility] (Lab) [address] [place], [address], 03/16/2025 07:01:11 03/15/20 25 03/15/2025 BREA TIN / IRON / TRANS BREA N / TIBC iron 31 ug/dL 40-170 low Not Available [facility] (Lab) [address] [place], [address], 03/16/2025 07:01:11 03/15/20 25 03/15/2025 BREA TIN / IRON / TRANS BREA N / TIBC transferrin 440 mg/dL 200-36 0 high Not Available [facility] (Lab) [address], [place], [address], 03/16/2025 07:01:11 03/15/2003/15/2025 BREA TIN / IRON / TRANS BREA N / TIBC ferritin 4.4 NG/mL 8.0-25 2.0 low Not Available [facility] (Lab) [address], [place], [address], 03/16/2025 07:01:11 03/15/20 25 03/15/2025 BREA TIN / IRON / TRANS BREA N / TIBC TIBC 616 ug/dL 250-45 0 high Not Available [facility] (Lab) [address], [place], [address], 03/16/2025 07:01:11 03/15/20 25 03/15/2025 BREA TIN / IRON / TRANS BREA N / TIBC iron saturation 5 % 20-55 low Not Available [facility] (Lab) [address], [place], [address], 03/16/2025 07:01:11 04/13/2004/13/2025 HIV 1/2 ANTIG EN/AN TIBOD Y, REFLE X CONFI RMATI ON HIV antigen/anti body Nonrea ctive nonrea ctive HIV-1 antig en and HIV-1 /HIV- 2 antib odies were not detec esperanza. No labor atory evide nce of HIV infec tion. Not Available [facility] (Lab) [address], [place], [address], 04/14/2025 20:15:12 04/13/2004/13/2025 GTT - GESTA MARYANNE L SCREE N, ACOG OB glucose, 1 hour screen 186 mg/dL 70-135 high Not Available [facility] (Lab) [address], [place], [address], 04/14/2025 20:15:12 04/13/20 25 04/13/2025 TSH TSH 1.12 uIU/m L 0.30-5 .33 Not Available [facility] (Lab) [address], [place], [address], 04/14/2025 20:15:12 04/13/20 25 04/13/2025 HEMAT OCRIT (HCT) HCT 33.6 % (based on docume nted legal sex) 34.0-4 5.0 low Not Available [facility] (Lab) [address], [place], [address], 04/14/2025 20:15:13 04/13/20 25 04/13/2025 HEMOG LOBIN (HGB) HGB 10.0 g/dL (based on docume nted legal sex) 11.6-1 5.4 low Not Available [facility] (Lab) [address] [place], [address], 04/14/2025 20:15:13 04/13/20 25 04/13/2025 RPR SCREE N, REFLE X TITER /CONF IRMAT ION RPR qualitative Nonrea ctive nonrea ctive Not Available [facility] (Lab) [address], [place], [address], 04/14/2025 20:15:13 02/16/20 25 02/15/2025 US, obste tric, 2nd or 3rd trime ster No observ ation record ed. [email or web address] [facility] [address], [place], [address], 02/15/2025 18:09:52 02/16/20 25 02/15/2025 US, obste tric, 2nd or 3rd trime ster No observ ation record ed. [address] [facility], [place], [address], 02/17/2025 08:11:36 03/15/20 25 03/15/2025 US, obste josi, follo w-up No observ ation record ed. [email or web address] [facility] [address], [place], [address], 03/15/2025 18:15:11 03/15/2003/15/2025 US, obste tric, follo w-up No observ ation record ed. [email or web address] [address], [place], [address], 03/15/2025 18:40:17 05/24/2005/24/2025 US, obste tric, follo w-up No observ ation record ed. [facility] [address], [place], [address], 05/24/2025 13:39:01 05/24/20 25 05/24/2025 US, obste tric, bioph ysica l profi le + non-s tress test No observ ation record ed. [facility] [address], [place], [address], 05/24/2025 13:39:11 05/24/2005/24/2025 US, obste tric, follo w-up No observ ation record ed. [email or web address], [place], [address], 05/24/2025 09:56:36 05/24/2005/24/2025 non-s tress test No observ ation record ed. [email or web address], [place], [address], 05/24/2025 10:33:51 05/24/20 non-s tress test No observ ation record ed. [email or web address], [place], [address], 05/24/2025 10:36:04 Result Notes None recorded. Problems Name Problem SNOMED Code Status Onset Date Resolution Date Notes Provider Name and Address Organization Details Recorded Time Obesity 056251313 Completed 2xwk NST's at 32WKS Elly Somers [facility] 5 13:40:47 Migraine 18297238 Completed fioricet and neuro consult Elly Somers [facility], [facility] 5 13:40:47 Gestatio nal diabetes mellitus 33786795 Completed 32wks 2xwk NSTs, BS QID, Wkly OB appts & serial growth u/s Elly Somers [facility], [facility] 5 13:40:47 Hyperten sive disorder 66803816 Completed CHTN delivery 38wks Elly Somers [facility] 5 13:40:47 Hypothyr oidism 08458197 Completed 100mcg levo Master Collins [facility], [facility] 4 13:47:29 Obesity 113763245 Completed pre-preg BMI 38 Master Collins [facility] 4 13:47:29 Large for gestatio n age fetus Completed EFW 91% at 19 weeks, 96% at 23 weeks, 94% at 27 weeks, serial growth, Master Collins [facility] 4 13:47:29 Past pregnanc y history of section 981821424 Completed desires [facility], 11/23 at 39w Master Collins [facility] 4 13:47:29 Hypothyr oidism 47832811 Active 100mcg levo Master Tavaresle [facility], [facility] 4 13:47:29 Large for gestatio n age fetus Completed 12/02/2023 EFW 91% at 19 weeks, 96% at 23 weeks, 94% at 27 weeks, serial growth, ALYSA DOLAN MD [address], [place], [address], [facility] 4 16:22:36 Pregnanc y 55318601 Completed 201907/18/2020 Elly jiménez, [facility] 5 15:18:19 Polyhydr amnios 05797869 Completed 06/12- 29.6 resolved Elly jiménez, [facility] 5 13:40:47 Pregnanc y 71941042 Completed 202211/28/2023 Elly jiménez, [facility] 5 15:18:19 Gestatio nal diabetes mellitus 87050041 Completed 2023 32wk antenata l testing, 2hr pp gtt. 1500mg Metformi n started 08/29/23- increase d to 1500mg 10/01/23 Master Collins [facility], [facility] 4 13:47:29 Gestatio nal diabetes mellitus 18694693 Completed 202312/02/2023 32wk antenata l testing, 2hr pp gtt. 1500mg Metformi n started 08/29/23- increase d to 1500mg 10/01/23 ALYSA DOLAN MD [address], [place], [address], [facility] 4 16:22:58 Attentio n deficit hyperact ivity disorder 299846904 Active 2024 Elly jiménez, [facility] 5 14:28:34 Hashimot o thyroidi tis [id number] Active 2024 labs with pn panel and 28 week levothyr oxine 88 mcg daily Estrella Gutiérrez CNM [address], [place], [address], [facility] 5 15:32:05 Past pregnanc y history of section 815610764 Active 2024 x2, plan for repeat ALYSA DOLAN MD [address], [place], [address], [facility] 15:43:06 Obesity 594452764 Active 2024 BMI 41 2 bASA daily 34 week antenata l testing ALYSA DOLAN MD [address], [place], [address], [facility] 5 12:44:59 Polycyst ic ovary syndrome 761053090 Active 2024 ALYSA DOLAN MD [address], [place], [address], [facility] 5 16:55:48 Mixed anxiety and depressi ve disorder 528868198 Active 2024 fluoxeti ne 20 mg daily Estrella Gutiérrez CNM [address], [place], [address], [facility] 15:32:25 Migraine 90270448 Active 2024 Estrella Gutiérrez CNM [address], [place], [address], [facility] 16:27:31 Pregnanc y 96716119 Active 2024 Elly Somers null, [facility] 15:18:19 Past pregnanc y history of section 122681317 Active 2024 x2, plan for repeat ALYSA DOLAN MD [address], [place], [address], [facility] 5 15:43:06 Hashimot o thyroidi tis 93429621 Active 2024 labs with pn panel and 28 week levothyr oxine 88 mcg daily Estrella Gutiérrez CNM [address], [place], [address], [facility] 5 15:32:05 Mixed anxiety and depressi ve disorder 326857641 Active 2024 fluoxeti ne 20 mg daily Estrella Gutiérrez CNM [address], [place], [address], [facility] 5 15:32:25 Polycyst ic ovary syndrome 915518029 Active 2024 ALYSA DOLAN MD [address], [place], [address], [facility] 5 16:55:48 Obesity 335190108 Active 2024 BMI 41 2 bASA daily 34 week antenata l testing ALYSA DOLAN MD [address], [place], [address], [facility] 5 12:44:59 Migraine 83757420 Active 2024 Estrella Gutiérrez CNM [address], [place], [address], [facility] 5 16:27:31 Steriliz ation requeste d [id number] Active 2024 tubal with c section, papers signed at 32 weeks ALYSA DOLAN MD [address], [place], [address], [facility] 5 11:16:19 Problem Notes None recorded. Procedures Surgical History Date Name Laterality Status Provider Name and Address Organization Details Recorded Time 4 Date of Last Pap Smear completed Elly Somers [facility] 11/24/2024 14:29:50 4 Caesarean Section completed Kandy Paul [facility] 05/25/2024 14:06:20 3 IUD Removal completed Andree Brooks [facility] [address], [place], [address], [facility] 11/19/2022 14:07:03 2 IUD Insertion completed Andree Brooks [facility] [address], [place], [address], [facility] 07/04/2022 15:36:20 0 Caesarean Section completed Adrianne Youngblood [facility] 11/22/2020 14:18:54 0 NST completed Aisha Zepeda MD [address], [place], [address], [facility] 07/03/2020 12:21:36 7 Dilation and Curettage completed Spring Flores [facility] 12/14/2019 13:44:04 Imaging Results None recorded. Procedure Notes None recorded. Medical Equipment None [...] HCl 4 mg tablet TAKE 1 TABLET EVERY 4 TO 6 HOURS BY MOUTH 12/24 completed Not Available Not Available Not Available dextroamphe tamine-amph etamine 10 mg tablet TAKE 1 TABLET BY MOUTH IN THE MORNING AND 1 TABLET AT LUNCHTIME 05/06 completed Not Available Not Available Not Available rizatriptan 10 mg tablet PLEASE SEE ATTACHED FOR DETAILED DIRECTION S 11/24 completed Not Available Not Available Not Available phentermine 15 mg capsule TAKE 1 CAPSULE BY MOUTH EVERY DAY 11/15 completed Not Available Not Available Not Available Wellbutrin SR 150 mg tablet, 12 hr sustained-r elease Take 1 tablet every day by oral route. 11/09 completed Not Available Not Available Not Available phentermine 37.5 mg tablet TAKE 1 TABLET BY MOUTH DAILY 05/23 completed Not Available Not Available Not Available levothyroxi ne 100 mcg tablet Take 1 tablet every day by oral route. 12/29 completed Not Available Not Available Not Available hydrocortis one 2.5 % topical cream [...] tamine-amph etamine 20 mg tablet TAKE 1 TABLET BY MOUTH IN THE MORNING 11/24 completed Not Available Not Available Not Available Wellbutrin 75 mg tablet Take 1 tablet every day by oral route. 11/09 completed Not Available Not Available Not Available progesteron e micronized 200 mg capsule TAKE 1 CAPSULE BY MOUTH EVERY DAY DIRECTED FOR UP TO 4 WEEKS active Not Available Not Available No t Available dextroamphe tamine-amph etamine 15 mg tablet [...] TAKE 1 CAPSULE BY MOUTH EVERY DAY active Not Available Not Available No t Available metformin ER 500 mg tablet,exte nded release 24 hr TAKE 3 TABLETS BY MOUTH AT BEDTIME active Not Available Not Available No t Available dextroamphe tamine-amph etamine 5 mg tablet TAKE 1 TABLET BY MOUTH DAILY AT LUNCH 04/25 completed Not Available Not Available Not Available Microlet Lancet USE TO TEST 4 TIMES A DAY active Not Available Not Available No t Available bupropion HCl XL 300 mg 24 hr tablet, extended release TAKE 1 TABLET BY MOUTH DAILY 05/23 completed Not Available Not Available Not Available bupropion HCl XL 150 mg 24 hr tablet, extended release TAKE 1 TABLET BY MOUTH EVERY DAY IN THE MORNING 11/24 completed Not Available Not Available Not Available topiramate 50 mg tablet TAKE 1 TABLET BY MOUTH TWICE DAILY 04/25 completed Not Available Not Available Not Available iron 05/25 completed Not Available Not Available Not Available 1 daily active Not Available Not Hanh ilable Not Available varenicline tartrate 0.5 mg (11)-1 mg (42) tablets in a dose pack 1 STARTR PK ORALLY PER PACKAGE DIRECTION S 11/24 completed Not Available Not Available Not Available cholecalcif gerardo (vitamin D3) 1,250 mcg (50,000 unit) capsule TAKE 1 TABLET BY MOUTH WEEKLY 11/24 completed Not Available Not Available Not Available butalbital- acetaminoph en-caffeine 50 mg-300 mg-40 mg capsule TK 1 C PO Q 6 H PRN 11/08 completed Not Available Not Available Not Available Procort 1.85 %-1.15 % rectal cream Insert 1 applicati on 3 times a day by rectal route. 08/08 completed Not Available Not Available Not Available Emgality 120 mg/mL subcutaneou s syringe INJECT 240 MG UNDER THE SKIN EVERY 30 (THIRTY) DAYS FOR 30 DAYS, THEN 120 MG EVERY 30 (THIRTY) DAYS. 11/24 completed Not Available Not Available Not Available OneTouch Delica Plus Lancet 33 gauge USE 1 TO CHECK GLUCOSE 4 TIMES DAILY . FASTING, BEFORE BREAKFAST , LUNCH AND DINNER 12/01 completed Not Available Not Available Not Available OneTouch Delica Plus Lancet 30 gauge USE TO TEST FOUR TIMES DAILY 11/07 completed Not Available Not Available Not Available [facility] 75 mg disintegrat ing tablet 1 TAB ONTO THE TONGUE EVERY OTHER DAY NEEDED FOR MIGRAINE HEADACHE 11/24 completed Not Available Not Available Not Available ID NOW COVID-19 Test Kit TEST DIRECTED TODAY 05/23 completed Not Available Not Available Not Available Contour Plus Test Strip USE TO TEST 4 TIMES A DAY active Not Available Not Available No t Available Contour Plus Blue Meter USE TO TEST 4 TIMES A DAY active Not Available Not Available No t Available Vitals Date Recorded Body height Body mass index (BMI) Body weight Systolic And Diastolic Provider Name and Address Organization Details Last Updated DateTime 05/24/2025 166.37 cm 42.9 kg/m2 753320.2 g 135/83 mm[Hg] Stephanie Zuñiga [facility] 05/24/2025 10:32:08 Date Recorded Body height Body mass index (BMI) Body weight Systolic And Diastolic Provider Name and Address Organization Details Last Updated DateTime 05/24/2025 166.37 cm 42.6 kg/m2 615834.02 g 135/83 mm[Hg] Yoana Farrelltito [facility] 05/24/2025 10:19:13 Social History Question Answer Notes LastModified by Organizat ion Details LastModified Time Tobacco Smoking Status Former Smoker Althea Eaton tino, [facility] 08/05/2023 12:09:42 Do You Have An Advance Directive? No Information not available 05/23/2022 If You Are , What Was Your Level Of Alcohol Consumption Prior To ? Occasional [email or web address] Information not available 11/26/2024 Are You Blind Or Do You Have [...] You Following? REGULAR Information not available 11/08/2020 What Is The Highest Grade Or Level Of School You Have Completed Or The Highest Degree You Have Received? [id number] Information not available 11/22/2020 When Did You Quit Smoking? 1-5yearssincel karlaprema [email or web address] Information not available 03/15/2025 Are There Any Guns Present In Your Home? No Information not available 11/22/2020 What Was The Date Of Your Most Recent Tobacco Screening? 12/24/2024 [email or web address] Information not available 12/24/2024 What Is Your Current Pack Years? 10packyears [email or web address] Information not available 03/15/2025 Do You Use Protection During Sex? No Information not available 11/22/2020 Do You Use Your Seat Belt Or Car Seat Routinely? Yes Information not available 11/22/2020 Are You Sexually Active? Yes [email or web address] Information not available 03/15/2025 Do You Have Smoke And Carbon Monoxide Detectors In Your Home? Yes Information not available 11/22/2020 How Much Tobacco Do You Smoke? No Information not available 11/22/2020 Do You Use Sunscreen Routinely? Yes Information not available 11/22/2020 Have You Used IV Drugs? No Information not available 05/23/2022 Do You Have Difficulty Walking Or Climbing Stairs? No [email or web address] Information not available 08/05/2023 Sex: Unknown Functional Status Question Answer Note LastModified by Organizat ion Details LastModified Time Do you use any illicit or recreational drugs? No Information not available 11/08/2020 Do you or have you ever used any other forms of tobacco or nicotine? No [email or web address] Information not available 03/15/2025 What is your level of alcohol consumption? None Information not available 12/16/2019 Do you or have you ever used smokeless tobacco? Never used smokeless tobacco [email or web address] Information not available 08/05/2023 Are you currently employed? Yes [email or web address] Information not available 03/15/2025 Are you able to walk independently without assistance or assistive devices? [email or web address] Information not available 11/08/2020 Are you able to care for yourself independently? Yes [email or web address] Information not available 08/05/2023 What is your occupation? [employer] Information not available 05/23/2022 Do you have difficulty dressing, bathing, grooming, or toileting? No [email or web address] Information not available 08/05/2023 Do you or have you ever used e-cigarettes or vape? Never used electronic cigarettes [email or web address] Information not available 08/05/2023 What is your exercise level? Occasional walking Information not available 12/16/2019 Mental Status Question Answer Note LastModified by Organization D etails LastModified Time Do you feel stressed (tense, restless, nervous, or anxious, or unable to sleep at night)? [id number] Information not available 11/22/2020 Family History Relationship Description Onset Age of this Age Resolved Age Notes LastModified by Organization Details LastModified Time Maternal Grandfather Diabetes mellitus [email or web address] Not available 2022 15:52:44 Maternal Grandfather Hypertensive disorder [email or web address] Not available 2022 15:52:44 Maternal Grandmother Family history of Cardiovascul ar disease Not available 03/15 15:27:24 Maternal Grandmother Hypertensive disorder [email or web address] Not available 2023 14:05:51 Maternal Grandmother Malignant neoplasm of breast 60 [email or web address] Not available 2024 15:27:24 Maternal Grandmother Malignant neoplasm of breast Not available 2024 15:27:24 Maternal Aunt Malignant neoplasm of breast 50 [email or web address] Not available 2024 15:27:24 Maternal Aunt Malignant neoplasm of breast 50 [email or web address] Not available 2024 15:27:24 Maternal Aunt Malignant neoplasm of breast [email or web address] Not available 2024 15:27:24 Medical History Condition Response Allergies (Food, seasonal, environmental ) N Other N Drug/Latex Allergies/Reactions N Breast Cancer N Blood Transfusion N Lung Disease N Dermatologic Disorders N Defects or Inherited Disease N Breast Problem N Gestational Diabetes Y Hematologic disorders N Anesthesia Complications N History of STI N Deep Vein Thrombosis N Polycystic ovary syndrome Y Anxiety Disorder Y Autoimmune disease N Arthritis N Polyps N Infertility N History of abnormal pap Y Acid Reflux (GERD) N Cancer N Varicosities N Stroke N Neurologic/Epilepsy Y Endometriosis N High Cholesterol N Headaches Y Fibromyalgia N Kidney Disease N Heart Problems N Thyroid Problems Y Kidney or Bladder Problems N GI Problems N Eating Disorder N Anemia N Art (IVF or FET) N Psychiatric Illness Y Ovarian Cancer N Diabetes Y Pulmonary (TB, Asthma) N Hepatitis/Liver Disease N Eczema N Urinary Tract Infection N Abuse/Domestic Violence N Asthma N Trauma/Violence N Depression/ depression Y Heart Disease N Pre-Eclampsia N Hypertension Y Osteoporosis N Thrombophilias N Gynecological History Statement/Question Response Date of Last Mammogram Flow Moderate Date of LMP 09/22/2023 N Was last menstrual period normal N STIs/STDs N Date of Last Colonoscopy Desired Control Method None Abnormal Pap Y On BCP's at Conception? N HPV Vaccine N Duration of Flow (days) 7 12 Current Control Method Age at First Child 19 Are cycles usually normal N Sexually Active? Y Menses Monthly Y Date of DEXA bone scan Age of first menstrual cycle 10 Date of Last Pap Smear 05/25/2024 Sexual Problems? 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 F32.A F41.9 699615 [facility] thyroiditis 21 676852 E06.3 88601 Past pregn david history of section 515101475 Z98.157 1096579 Gestation period, 30 weeks 06237644 Z3A.30 3353280 [id number] ALYSA DOLAN MD [facility] [address] [address] 05/13/2025 09:54:06 05/13/2025 10:35:14 Past history of section 096557451 Z98.355 8378507 Con[facility] thyroiditis 21 733961 E06.3 41000 Obesity 959338185 E66.9 2256900912 Gestation period, 32 weeks 3982105 Z3A.32 9545930 [id number] ALYSA DOLAN MD [facility] [address],[place] [address] 05/24/2025 09:27:05 05/24/2025 09:56:50 Obesity 703895336 O99.210 O24.410 830142 [id number] ALYSA DOLAN MD [facility] [address],[place] [address] 05/24/2025 09:29:31 05/24/2025 10:36:36 Maternal obesity complicating , childbirth and the puerperium, antepartum 9872826387 07 O99.210 0217034808 [id number] ALYSA DOLAN MD [facility] [address],[place] [address] 05/24/2025 09:29:45 05/24/2025 11:45:00 Sterilization requested 826486026 Z30.2 59498387 Mixed anxi ety and depressive disorder 812722141 F32.A F41.9 322127 Cony thyroiditis 21 937966 E06.3 97272 Past pregn david history of section 374048166 Z98.386 1042744 Gestation period, 34 weeks 49002824 Z3A.34 2504923 Health Concerns Section Related Observation LastModified by Organization Detai ls LastModified Time None Recorded Concern Status LastModified by Organization Details LastModified Time None Recorded Payers Encounter Date Sequence Insurance Name Policy Number Policy Linder Covered Member ID Linder Member ID Guarantor Name 05/24/2025 1 [facility] [id number] Keshav Ervin [id number] Yoana Ervin 05/24/2025 2 [place] [employer] Yoana Ervin [id number] Yoana Ervin Notes Date Note Type Note Provider Name and Address Organization Details Recorded Time 05/24/2025 text/html Generic HPI TemplateReported by Patient ALYSA DOLAN MD [address], [place], [address], [facility] 05/24/2025 11:43:25 OBGyn Episode Ob Episode Information Episode Created Date Number of Fetuses Patient Bloodtype Patient rh Status Prepregnancy Weight lbs Domestic Partner Domestic Partner Phone Father Name Molder Hand Status 12/25/19 25 1 O Positive 253 Nolan Ervin OPEN Fetus Data First Name Last Name Admitted to NICU Weight (g) Sex Living Outcome Pediatric Complications Fetus ID Race Codes Race Delivery Type [id number] Problems Problem Notes hx LGA Problem Name Start Date End Date Resolution Snomed Code Not e Polycystic ovary syndrome 12/24/2024 [id number] Migraine 12/24/2024 44278132 Sterilization requested 01/18/2025 025870925 tubal with c se ction, papers signed at 32 weeks Past history of section 12/24/2024 054574630 x2, plan for re peat Mixed anxiety and depressive disorder 12/24/2024 444647878 fluoxeti ne 20 mg daily Obesity 12/24/2024 555564169 BMI 412 b ASA daily34 week testing Cony thyroiditis 12/24/2024 39405349 labs with pn pa reji and 28 weeklevothyroxine 88 mcg daily Morteza Calculation Initial Morteza Date Initial Exam Date Initial Exam Provider Initial Ultrasound Date Last Menstrual Period Date Ultra Sound Weeks Gestation 07/05/2025 11/24/2024 [email or web address] 10/27/2024 09/22/2024 0 Eighteen To Twenty Week Morteza Update Ultra Sound Date Fundal Height At Umbil Quickening Date Ultra Sound Latest Weeks Gestation Final Morteza Confirmed By Final Morteza Confirmed Date Final Morteza Date Ultra Sound Latest Days Gestation 0 0 Pre- Flowsheet Flowsheet Date 12/24/2024 Anthony Score Blood Edema Fundus Height Fundus Units Glucose Ketones Leukocytes Nitrite Labor Signs Protein Cervic Dilation Cervic Effacement Cervic Station neg none none trace Type Weight in lbs Pre/Post Dialysis Refused Weight 255.966924518601 BP Diastolic BP Location Tested BP Systolic BP Type 82 130 Fetus Heart Rate Present Fetus Movement A No Comments reviewed hx of 2 se ctions, hx documented in problem list initial labs reviewed, redraw on NIPT, unable to see NB will f/u at anatomy r pending redraw, start bASA x 2, begin care Flowsheet Date 01/18/2025 Anthony Score Blood Edema Fundus Height Fundus Units Glucose Ketones Leukocytes Nitrite Labor Signs Protein Cervic Dilation Cervic Effacement Cervic Station neg none Type Weight in lbs Pre/Post Dialysis Refused Weight 255.615882346596 BP Diastolic BP Location Tested BP Systolic BP Type 78 L arm 136 sitting Fetus Heart Rate Present A 145 Fetus Movement A Yes Comments Good movement. No cram ping or bleeding. Mild nausea. New OB labs wnl. Would like tubal ligation with c section. She does not desire future childbearing and would like permanent sterilization. Risks, benefits and alternatives discussed. Will sign tubal papers at 32 weeks. Discussed anatomy US for next visit. Having a girl! RTC 4 weeks. Flowsheet Date 02/15/2025 Anthony Score Blood Edema Fundus Height Fundus Units Glucose Ketones Leukocytes Nitrite Labor Signs Protein Cervic Dilation Cervic Effacement Cervic Station Type Weight in lbs Pre/Post Dialysis Refused BP Diastolic BP Location Tested BP Systolic BP Type Fetus Heart Rate Present Fetus Movement Comments Flowsheet Date 02/15/2025 Anthony Score Blood Edema Fundus Height Fundus Units Glucose Ketones Leukocytes Nitrite Labor Signs Protein Cervic Dilation Cervic Effacement Cervic Station neg none Type Weight in lbs Pre/Post Dialysis Refused Weight 254.609800544780 BP Diastolic BP Location Tested BP Systolic BP Type 78 L arm 147 sitting Fetus Heart Rate Present A Present Fetus Movement A Yes Comments Baby active, no issues. Franny bazzi well. Anatomy incomplete today, needs heart views. EFW 72%. Repeat in 4 weeks. RTC 4 weeks. Flowsheet Date 03/15/2025 Anthony Score Blood Edema Fundus Height Fundus Units Glucose Ketones Leukocytes Nitrite Labor Signs Protein Cervic Dilation Cervic Effacement Cervic Station Type Weight in lbs Pre/Post Dialysis Refused BP Diastolic BP Location Tested BP Systolic BP Type Fetus Heart Rate Present Fetus Movement Comments Flowsheet Date 03/15/2025 Anthony Score Blood Edema Fundus Height Fundus Units Glucose Ketones Leukocytes Nitrite Labor Signs Protein Cervic Dilation Cervic Effacement Cervic Station Type Weight in lbs Pre/Post Dialysis Refused Weight 254.017350123873 BP Diastolic BP Location Tested BP Systolic BP Type 92 L arm 160 sitting 80 134 Fetus Heart Rate Present Fetus Movement A Yes Comments Good movement. No cram ping or bleeding. Anatomy complete today, EFW 60%. Reports fatigue and easy exhaustion, taking PO Fe. Will check Fe panel and labs today as well for elevated BP. Glucose next visit. RTC 4 weeks. Flowsheet Date 04/13/2025 Anthony Score Blood Edema Fundus Height Fundus Units Glucose Ketones Leukocytes Nitrite Labor Signs Protein Cervic Dilation Cervic Effacement Cervic Station Type Weight in lbs Pre/Post Dialysis Refused Weight 257.917418798634 BP Diastolic BP Location Tested BP Systolic BP Type 74 L arm 120 sitting Fetus Heart Rate Present A 145 Fetus Movement Comments Doing well, good movem ent. BP normotensive, has been normal at Fe infusions as well. GCT and labs today. Discussed weekly testing starting at 34 weeks for BMI. Will discuss further Fe infusions based on labs today. Discussed tdap. RTC 2 weeks. Flowsheet Date 04/27/2025 Anthony Score Blood Edema Fundus Height Fundus Units Glucose Ketones Leukocytes Nitrite Labor Signs Protein Cervic Dilation Cervic Effacement Cervic Station Type Weight in lbs Pre/Post Dialysis Refused 255.031696761440 BP Diastolic BP Location Tested BP Systolic BP Type 82 L arm 141 sitting Fetus Heart Rate Present A 155 Fetus Movement A Yes Comments Good movement. No cram ping or bleeding. Started glucose testing on Friday, overall within normal. Continue x2 weeks. Will continue Fe infusions given improved but still low hemoglobin. Order sent for c section. RTC 2 weeks. Flowsheet Date 05/13/2025 Anthony Score Blood Edema Fundus Height Fundus Units Glucose Ketones Leukocytes Nitrite Labor Signs Protein Cervic Dilation Cervic Effacement Cervic Station Type Weight in lbs Pre/Post Dialysis Refused Weight 255.505176794063 BP Diastolic BP Location Tested BP Systolic BP Type 81 L arm 129 sitting Fetus Heart Rate Present A 135 Fetus Movement A Yes Comments Doing well, good movem ent. No cramping or bleeding. Would like to do PO Fe instead of continued IV Fe infusions due to time constraints. Tubal papers signed today. Discussed r/b of surgery including that the surgery is not reversible and she voices understanding. Needs to continue glucose testing, ran out of supplies and waiting for new supplies to be in stock. STart testing next visit. RTC 2 weeks. Flowsheet Date 05/24/2025 Anthony Score Blood Edema Fundus Height Fundus Units Glucose Ketones Leukocytes Nitrite Labor Signs Protein Cervic Dilation Cervic Effacement Cervic Station Type Weight in lbs Pre/Post Dialysis Refused BP Diastolic BP Location Tested BP Systolic BP Type Fetus Heart Rate Present Fetus Movement Comments Flowsheet Date 05/24/2025 Anthony Score Blood Edema Fundus Height Fundus Units Glucose Ketones Leukocytes Nitrite Labor Signs Protein Cervic Dilation Cervic Effacement Cervic Station Type Weight in lbs Pre/Post Dialysis Refused Weight 262.541579143185 BP Diastolic BP Location Tested BP Systolic BP Type 83 L arm 135 sitting Fetus Heart Rate Present Fetus Movement Comments Flowsheet Date 05/24/2025 Anthony Score Blood Edema Fundus Height Fundus Units Glucose Ketones Leukocytes Nitrite Labor Signs Protein Cervic Dilation Cervic Effacement Cervic Station Type Weight in lbs Pre/Post Dialysis Refused Weight 260.188218460142 BP Diastolic BP Location Tested BP Systolic BP Type 83 L arm 135 sitting Fetus Heart Rate Present A Present Fetus Movement A Yes Comments Good movement. No cram ping or bleeding. BPP 10/10, mild polyhydramnios. Checking sugars now, reports elevated fasting today. Discussed bedtime snack. C section scheduled. RTC 1 week. Menstrual History Last Menstrual Date Menses Monthly On Bcp Conception Prior Menses Frequency Hcg Plus Date Menarche Onset Age 0209/22/2026 Delivery Information Delivery Date Delivery Type Labor Anesthesia Weeks Gestation Incision Type Labor Labor Length Hrs Delivered By Post Complications Tubal Sterilization Discharge Date Comments Discharge Information Feeding Method Contraceptive Method Maternal HG B and HCT Levels
--- OUTSIDE RECORDS SUMMARY | 2025-05-25 17:05 | XMS_ITS | Continuity of Care Document ---
Author Organization [facility] Address [address] [place] [address] Care Team Providers Care Channel Marketing Specialist Name Role Phone CASSIE SANTAMARIA Primary Care [...] recorde d. Surgeries None recorde d. Imaging US, obstetr ic, follow- up 2024 025 [email or web address] [address], [address], [place], [address], 05/24/2025 18:38:37 US, obstetr ic, biophys ical profile + non-str ess test 2024 025 [email or web address] [address], [address], [place], [address], 05/24/2025 18:38:37 Medication Orders None recorde d. Patient TargetsNo targets recorded. Patient InstructionsNo instructions recorded. Reason for Referral None Reported. Results Created Date Observation Date Name Description Value Unit Range Abnormal Flag Note LastModifiedBy Organization Detail LastModifiedTime 12/30/19 25 12/29/2024 [UNIT Y] ANEUP LOIDY NIPT fraction 5.8% normal Not Available [facility] [address], [place], [address], 12/29/2024 05:20:42 12/30/19 25 12/29/2024 [UNIT Y] ANEUP LOIDY NIPT 22Q11.2 microdeletio n LOW RISK <1 in 10,000 normal Not Available [facility] [address], [place], [address], 12/29/2024 05:20:42 12/30/19 25 12/29/2024 [UNIT Y] ANEUP LOIDY NIPT sex chromosome aneuploidy NOT DETECT ED normal Not Available [facility] [address], [place], [address], 12/29/2024 05:20:42 12/30/19 25 12/29/2024 [UNIT Y] ANEUP LOIDY NIPT monosomy X LOW RISK <1 in 10,000 normal Not Available [facility] [address], [place], [address], 12/29/2024 05:20:42 12/30/19 25 12/29/2024 [UNIT Y] ANEUP LOIDY NIPT trisomy 13 LOW RISK <1 in 10,000 normal Not Available [facility] [address], [place], [address], 12/29/2024 05:20:42 12/30/19 25 12/29/2024 [UNIT Y] ANEUP LOIDY NIPT trisomy 18 LOW RISK <1 in 10,000 normal Not Available [facility] [address], [place], [address], 12/29/2024 05:20:42 12/30/19 25 12/29/2024 [UNIT Y] ANEUP LOIDY NIPT trisomy 21 LOW RISK <1 in 10,000 normal Not Available [facility] [address], [place], [address], 12/29/2024 05:20:42 12/30/19 25 12/29/2024 [UNIT Y] ANEUP LOIDY NIPT sex FEMALE normal Not Available [facility] [address], [place], [address], 12/29/2024 05:20:42 12/30/19 25 12/29/2024 [UNIT Y] ANEUP LOIDY NIPT gestation SINGLE TON normal Not Available [facility] [address], [place], [address], 12/29/2024 05:20:42 12/30/19 25 12/29/2024 [UNIT Y] ANEUP LOIDY NIPT for detailed report, see pdf See PDF normal Not Available [facility] [address], [place], [address], 12/29/2024 05:20:42 12/25/19 25 12/24/2024 CULTU RE: URINE result report SEE RESULT S BELOW Test: Cultu re: Urine Speci men Sourc e: Urine - Clean Catch Speci men Type: Urine Speci men Date: 2024 1555 Resul t Date: 025 0608 Resul t Statu s: Final resul t Abnor mal: No Resul ting Lab: [facility] [address] [facility] [address] Tel: CULTU RE ----- ----- ----- --- No growt h in 1 day (dete ction level of 10,00 0 colon ies / ml.) Not Available [facility] [place] [facility] (Lab) [address] [facility], [place], [address], 12/26/2024 07:11:49 12/25/19 25 12/24/2024 drug scree n, urine Amphetamines : negati ve Not Available [place] [address], [place], [address], 12/24/2024 15:17:16 12/25/19 25 12/24/2024 drug scree n, urine Cannabinoids : negati ve Not Available [place] [address], [place], [address], 12/24/2024 15:17:16 12/25/19 25 12/24/2024 drug scree n, urine Cocaine: negati ve Not Available [place] [address], [place], [address], 12/24/2024 15:17:16 12/25/19 25 12/24/2024 drug scree n, urine Opiates: negati ve Not Available [place] [address], [place], [address], 12/24/2024 15:17:16 12/25/19 25 12/24/2024 drug scree n, urine Phenocyclidi ne: negati ve Not Available [place] [address], [place], [address], 12/24/2024 15:17:16 12/25/19 25 12/24/2024 drug scree n, urine Barbiturates : negati ve Not Available [place] [address], [place], [address], 12/24/2024 15:17:16 12/25/19 25 12/24/2024 drug scree n, urine Benzodiazepi abel: negati ve Not Available [place] [address], [place], [address], 12/24/2024 15:17:16 12/25/19 25 12/24/2024 drug scree n, urine Ethanol: negati ve Not Available [place] [address], [place], [address], 12/24/2024 15:17:16 12/25/19 25 12/24/2024 drug scree n, urine Hallucinogen s: negati ve Not Available [place] [address], [place], [address], 12/24/2024 15:17:16 12/25/19 25 12/24/2024 drug scree n, urine Inhalants: negati ve Not Available [place] [address], [place], [address], 12/24/2024 15:17:16 12/25/19 25 12/24/2024 drug scree n, urine Anabolic Steroids: negati ve Not Available [place] [address], [place], [address], 12/24/2024 15:17:16 12/25/19 25 12/24/2024 drug scree n, urine Other: negati ve Not Available [place] [address], [place], [address], 12/24/2024 15:17:16 03/15/20 25 03/15/2025 CMP/C BC/UR IC ACID WBC 11.2 10'3/ uL 3.5-10 .5 high Not Available [facility] [place] [facility] (Lab) [address] , [place], [address], 03/16/2025 07:01:11 03/15/20 25 03/15/2025 CMP/C BC/UR IC ACID RBC 4.43 10'6/ uL (based on docume nted legal sex) 3.80-5 .20 Not Available [facility] (Lab) [address] [place], [address], 03/16/2025 07:01:11 03/15/20 25 03/15/2025 CMP/C BC/UR IC ACID HGB 9.7 g/dL (based on docume nted legal sex) 11.6-1 5.4 low Not Available [facility] (Lab) [address] [place], [address], 03/16/2025 07:01:11 03/15/20 25 03/15/2025 CMP/C BC/UR IC ACID HCT 31.2 % (based on docume nted legal sex) 34.0-4 5.0 low Not Available [facility] (Lab) [address] [place], [address], 03/16/2025 07:01:11 03/15/20 25 03/15/2025 CMP/C BC/UR IC ACID MCV 70.4 fL 80.0-9 9.0 low Not Available [facility] (Lab) [address] [facility], [place], [address], 03/16/2025 07:01:11 03/15/20 25 03/15/2025 CMP/C BC/UR IC ACID MCH 21.9 pg 27.0-3 4.0 low Not Available [facility] (Lab) [address] [facility], [place], [address], 03/16/2025 07:01:11 03/15/20 25 03/15/2025 CMP/C BC/UR IC ACID MCHC 31.1 g/dL 32.0-3 5.5 low Not Available [facility] (Lab) [address] [facility], [place], [address], 03/16/2025 07:01:11 03/15/20 25 03/15/2025 CMP/C BC/UR IC ACID RDW 17.6 % 11.0-1 5.0 high Not Available [facility] (Lab) [address] [facility], [place], [address], 03/16/2025 07:01:11 03/15/20 25 03/15/2025 CMP/C BC/UR IC ACID plt 250 10'3/ uL 150-40 0 Not Available [facility] (Lab) [address] [facility], [place], [address], 03/16/2025 07:01:11 03/15/20 25 03/15/2025 CMP/C BC/UR IC ACID MPV 11.0 fL 8.8-12 .1 Not Available [facility] (Lab) [address] [place], [address], 03/16/2025 07:01:11 03/15/20 25 03/15/2025 CMP/C BC/UR IC ACID NRBC's 0.0 % 0.0 Not Available [facility] (Lab) [address] [facility], [place], [address], 03/16/2025 07:01:11 03/15/20 25 03/15/2025 CMP/C BC/UR IC ACID absolute NRBCs 0.0 10'3/ uL no refere nce range establ ished Not Available [facility] (Lab) [address] [facility], [place], [address], 03/16/2025 07:01:11 03/15/20 25 03/15/2025 CMP/C BC/UR IC ACID neutrophils 73.8 % 34.0-7 3.0 high Not Available [facility] (Lab) [address] [facility], [place], [address], 03/16/2025 07:01:11 03/15/20 25 03/15/2025 CMP/C BC/UR IC ACID lymphocytes 18.8 % 15.0-5 0.0 Not Available [facility] (Lab) [address] [facility], [place], [address], 03/16/2025 07:01:11 03/15/2003/15/2025 CMP/C BC/UR IC ACID monocytes 5.4 % 1.0-15 .0 Not Available [facility] (Lab) [address] [place], [address], 03/16/2025 07:01:11 03/15/20 25 03/15/2025 CMP/C BC/UR IC ACID eosinophils 0.8 % 0.0-8. 0 Not Available [facility] (Lab) [address] [place], [address], 03/16/2025 07:01:11 03/15/20 25 03/15/2025 CMP/C BC/UR IC ACID basophils 0.3 % 0.0-2. 0 Not Available [facility] (Lab) [address] [place], [address], 03/16/2025 07:01:11 03/15/20 25 03/15/2025 CMP/C BC/UR IC ACID immature granulocytes 0.9 % no define d refere nce range Immat ure Granu locyt es (IG) repre sents autom ated enume ratio n of Metam yeloc ytes, Myelo cytes and Promy elocy yg when IG is < 5%. Blast s are not inclu ded in IG and repor esperanza separ ately if prese nt. Not Available [facility] (Lab) [address] [facility], [place], [address], 03/16/2025 07:01:11 03/15/20 25 03/15/2025 CMP/C BC/UR IC ACID absolute neutrophils 8.3 10'3/ uL 1.5-8. 0 high Not Available [facility] (Lab) [address] [facility], [place], [address], 03/16/2025 07:01:11 03/15/20 25 03/15/2025 CMP/C BC/UR IC ACID absolute lymphocytes 2.1 10'3/ uL 1.0-4. 0 Not Available [facility] (Lab) [address] [facility], [place], [address], 03/16/2025 07:01:11 03/15/20 25 03/15/2025 CMP/C BC/UR IC ACID absolute monocytes 0.6 10'3/ uL 0.2-1. 0 Not Available [facility] (Lab) [address] [facility], [place], [address], 03/16/2025 07:01:11 03/15/20 25 03/15/2025 CMP/C BC/UR IC ACID absolute eosinophils 0.1 10'3/ uL 0.0-0. 6 Not Available [facility] (Lab) [address] [facility], [place], [address], 03/16/2025 07:01:11 03/15/20 25 03/15/2025 CMP/C BC/UR IC ACID absolute basophils 0.0 10'3/ uL 0.0-0. 3 Not Available [facility] (Lab) [address], [place], [address], 03/16/2025 07:01:11 03/15/20 25 03/15/2025 CMP/C BC/UR IC ACID absolute immature granulocytes 0.1 10'3/ uL 0.00-0 .10 Refer ence range s for nonbi nary/ inter sex or unspe cifie d gende r patie nts have not been estab lishe d. Pleas e refer to the follo wing table for range s estab lishe d for cisge nder patie nts and evalu ate in the clini carlos kapil xt of the indiv idual patie nt: https :[email or web address] casanova book. nm.or g/gen derx Not Available [facility] (Lab) [address], [place], [address], 03/16/2025 07:01:11 03/15/20 25 03/15/2025 CMP/C BC/UR IC ACID sodium 137 mmol/ L 133-14 6 Not Available [facility] (Lab) [address], [place], [address], 03/16/2025 07:01:11 03/15/20 25 03/15/2025 CMP/C BC/UR IC ACID potassium 4.0 mmol/ L 3.5-5. 1 Not Available [facility] (Lab) [address] [place], [address], 03/16/2025 07:01:11 03/15/20 25 03/15/2025 CMP/C BC/UR IC ACID chloride 104 mmol/ L 98-107 Not Available [facility] (Lab) [address], [place], [address], 03/16/2025 07:01:11 03/15/20 25 03/15/2025 CMP/C BC/UR IC ACID carbon dioxide 24 mmol/ L 21-31 Not Available [facility] (Lab) [address] [facility], [place], [address], 03/16/2025 07:01:11 03/15/20 25 03/15/2025 CMP/C BC/UR IC ACID anion gap 9 mmol/ L 4-13 Not Available [facility] (Lab) [address] [facility], [place], [address], 03/16/2025 07:01:11 03/15/20 25 03/15/2025 CMP/C BC/UR IC ACID blood urea nitrogen 4 mg/dL 7-25 low Not Available [facility] (Lab) [address] [facility], [place], [address], 03/16/2025 07:01:11 03/15/20 25 03/15/2025 CMP/C BC/UR IC ACID creatinine 0.45 mg/dL 0.60-1 .30 low Not Available [facility] (Lab) [address] [facility], [place], [address], 03/16/2025 07:01:11 03/15/20 25 03/15/2025 CMP/C BC/UR IC ACID egfrcr (CKD-epi 2020) >90 mL/mi n/1.7 3_m2 >=60 Not Available [facility] (Lab) [address] [facility], [place], [address], 03/16/2025 07:01:11 03/15/2003/15/2025 CMP/C BC/UR IC ACID calcium 8.6 mg/dL 8.3-10 .5 Not Available [facility] (Lab) [address] [facility], [place], [address], 03/16/2025 07:01:11 03/15/20 25 03/15/2025 CMP/C BC/UR IC ACID glucose 81 mg/dL 70-100 Not Available [facility] (Lab) [address] [place], [address], 03/16/2025 07:01:11 03/15/2003/15/2025 CMP/C BC/UR IC ACID protein, total 6.4 g/dL 6.4-8. 3 Not Available [facility] (Lab) [address] [facility], [place], [address], 03/16/2025 07:01:11 03/15/20 25 03/15/2025 CMP/C BC/UR IC ACID albumin 3.6 g/dL 3.5-5. 0 Not Available [facility] (Lab) [address] [facility], [place], [address], 03/16/2025 07:01:11 03/15/2003/15/2025 CMP/C BC/UR IC ACID ALT 5 units /L 9-43 low Not Available [facility] (Lab) [address] [facility], [place], [address], 03/16/2025 07:01:11 03/15/20 25 03/15/2025 CMP/C BC/UR IC ACID alkaline phosphatase 72 units /L 34-104 Not Available [facility] (Lab) [address] [facility], [place], [address], 03/16/2025 07:01:11 03/15/2003/15/2025 CMP/C BC/UR IC ACID AST 11 units /L 13-39 low Not Available [facility] (Lab) [address] [place], [address], 03/16/2025 07:01:11 03/15/2003/15/2025 CMP/C BC/UR IC ACID bilirubin, total 0.4 mg/dL 0.2-1. 2 Not Available [facility] (Lab) [address] [place], [address], 03/16/2025 07:01:11 03/15/20 25 03/15/2025 CMP/C BC/UR IC ACID uric acid 3.8 mg/dL 2.3-6. 6 Not Available [facility] (Lab) [address] [place], [address], 03/16/2025 07:01:11 03/15/20 25 03/15/2025 BREA TIN / IRON / TRANS BREA N / TIBC iron 31 ug/dL 40-170 low Not Available [facility] (Lab) [address] [facility], [place], [address], 03/16/2025 07:01:11 03/15/20 25 03/15/2025 BREA TIN / IRON / TRANS BREA N / TIBC transferrin 440 mg/dL 200-36 0 high Not Available [facility] (Lab) [address] [facility], [place], [address], 03/16/2025 07:01:11 03/15/20 25 03/15/2025 BREA TIN / IRON / TRANS BREA N / TIBC ferritin 4.4 NG/mL 8.0-25 2.0 low Not Available [facility] (Lab) [address] [facility], [place], [address], 03/16/2025 07:01:11 03/15/20 25 03/15/2025 BREA TIN / IRON / TRANS BREA N / TIBC TIBC 616 ug/dL 250-45 0 high Not Available [facility] (Lab) [address] [facility], [place], [address], 03/16/2025 07:01:11 03/15/20 25 03/15/2025 BREA TIN / IRON / TRANS BREA N / TIBC iron saturation 5 % 20-55 low Not Available [facility] (Lab) [address] [facility], [place], [address], 03/16/2025 07:01:11 04/13/20 25 04/13/2025 HIV 1/2 ANTIG EN/AN TIBOD Y, REFLE X CONFI RMATI ON HIV antigen/anti body Nonrea ctive nonrea ctive HIV-1 antig en and HIV-1 /HIV- 2 antib odies were not detec esperanza. No labor atory evide nce of HIV infec tion. Not Available [facility] (Lab) [address] [facility], [place], [address], 04/14/2025 20:15:12 04/13/20 25 04/13/2025 GTT - GESTA MARYANNE L LELIA N, ACOG OB glucose, 1 hour screen 186 mg/dL 70-135 high Not Available [facility] (Lab) [address] [facility], [place], [address], 04/14/2025 20:15:12 04/13/20 25 04/13/2025 TSH TSH 1.12 uIU/m L 0.30-5 .33 Not Available [facility] (Lab) [address] [facility], [place], [address], 04/14/2025 20:15:12 04/13/20 25 04/13/2025 HEMAT OCRIT (HCT) HCT 33.6 % (based on docume nted legal sex) 34.0-4 5.0 low Not Available [facility] (Lab) [address] [facility], [place], [address], 04/14/2025 20:15:13 04/13/20 25 04/13/2025 HEMOG LOBIN (HGB) HGB 10.0 g/dL (based on docume nted legal sex) 11.6-1 5.4 low Not Available [facility] (Lab) [address] [facility], [place], [address], 04/14/2025 20:15:13 04/13/20 25 04/13/2025 RPR SCREE N, REFLE X TITER /CONF IRMAT ION RPR qualitative Nonrea ctive nonrea ctive Not Available [facility] (Lab) [address] [facility], [place], [address], 04/14/2025 20:15:13 02/16/20 25 02/15/2025 US, obste tric, 2nd or 3rd trime ster No observ ation record ed. [email or web address] [place] [address], [place], [address], 02/15/2025 18:09:52 02/16/2002/15/2025 US, obste tric, 2nd or 3rd trime ster No observ ation record ed. [email or web address] [address], [place], [address], 02/17/2025 08:11:36 03/15/20 25 03/15/2025 US, obste tric, follo w-up No observ ation record ed. [email or web address] [place] [address], [place], [address], 03/15/2025 18:15:11 03/15/20 25 03/15/2025 US, obste tric, follo w-up No observ ation record ed. [email or web address] [address], [place], [address], 03/15/2025 18:40:17 05/24/20 25 05/24/2025 US, obste tric, follo w-up No observ ation record ed. [facility] [address], [place], [address], 05/24/2025 13:39:01 05/24/20 25 05/24/2025 , obste tric, bioph ysica l profi le + non-s tress test No observ ation record ed. [facility] [address], [place], [address], 05/24/2025 13:39:11 05/24/20 25 05/24/2025 US, obste tric, follo w-up No observ ation record ed. [email or web address] [address], [place], [address], 05/24/2025 09:56:36 05/24/20 25 05/24/2025 non-s tress test No observ ation record ed. [email or web address] [place] [address], [place], [address], 05/24/2025 10:33:51 05/24/20 non-s tress test No observ ation record ed. [email or web address] [place] [address], [place], [address], 05/24/2025 10:36:04 Result Notes None recorded. Problems Name Problem SNOMED Code Status Onset Date Resolution Date Notes Provider Name and Address Organization Details Recorded Time Obesity 496411945 Completed 2xwk NST's at 32WKS Elly jiménez [facility] 5 13:40:47 Migraine 66003488 Completed fioricet and neuro consult Elly jiménez [facility] 5 13:40:47 Gestatio nal diabetes mellitus 30588001 Completed 32wks 2xwk NSTs, BS QID, Wkly OB appts & serial growth u/s Elly jiménez [facility] 5 13:40:47 Hyperten sive disorder 29467086 Completed CHTN delivery 38wks Elly jiménez [facility] 5 13:40:47 Hypothyr oidism 33681562 Completed 100mcg levo Master Collins [facility] 4 13:47:29 Obesity 885329139 Completed pre-preg BMI 38 Master Collins [facility] 4 13:47:29 Large for gestatio n age fetus 806334756 Completed EFW 91% at 19 weeks, 96% at 23 weeks, 94% at 27 weeks, serial growth, Master Collins [facility] 4 13:47:29 Past pregnanc y history of section 552583604 Completed [facility], 11/23 at 39w Master jiménez, [facility] 4 13:47:29 Hypothyr oidism 17396019 Active 100mcg levo Master Collins [facility], [facility] 4 13:47:29 Large for gestatio n age fetus 744330573 Completed 12/02/2023 EFW 91% at 19 weeks, 96% at 23 weeks, 94% at 27 weeks, serial growth, ALYSA DOLAN MD [address], [place], [address], [facility] 4 16:22:36 Pregnanc y 07037097 Completed 201907/18/2020 Elly jiménez, [facility] 5 15:18:19 Polyhydr amnios 06554931 Completed 201916- 29.6 resolved Elly jiménez, [facility] 5 13:40:47 Pregnanc y 13757307 Completed 202211/28/2023 Elly jiménez, [facility] 5 15:18:19 Gestatio nal diabetes mellitus 65363802 Completed 2023 32wk antenata l testing, 2hr pp gtt. 1500mg Metformi n started 08/29/23- increase d to 1500mg 10/01/23 Master Collins null, [facility] 4 13:47:29 Gestatio nal diabetes mellitus 02712439 Completed 202312/02/2023 32wk antenata l testing, 2hr pp gtt. 1500mg Metformi n started 08/29/23- increase d to 1500mg 10/01/23 ALYSA DOLAN MD [address], [place], [address], [facility] 4 16:22:58 Attentio n deficit hyperact ivity disorder 850933753 Active 2024 Elly Somers null, [facility] 5 14:28:34 Hashimot o thyroidi tis 28115241 Active 2024 labs with pn panel and 28 week levothyr oxine 88 mcg daily Estrella Gutiérrez CNM [address], [place], [address], [facility] 5 15:32:05 Past pregnanc y history of section 164035716 Active 2024 x2, plan for repeat ALYSA DOLAN MD [address], [place], [address], [facility] 5 15:43:06 Obesity 900433678 Active 2024 BMI 41 2 bASA daily 34 week antenata l testing ALYSA DOLAN MD [address], [place], [address], [facility] 5 12:44:59 Polycyst ic ovary syndrome 449576800 Active 2024 ALYSA DOLAN MD [address], [place], [address], [facility] 5 16:55:48 Mixed anxiety and depressi ve disorder 208689484 Active 2024 fluoxeti ne 20 mg daily Estrella Gutiérrez CNM [address], [place], [address], [facility] 5 15:32:25 Migraine 10579495 Active 2024 Estrella Gutiérrez CNM [address], [place], [address], [facility] 5 16:27:31 Pregnanc y 75096548 Active 2024 Elly Somers null, [facility] 15:18:19 Past pregnanc y history of section 943407432 Active 2024 x2, plan for repeat ALYSA DOLAN MD [address], [place], [address], [facility] 5 15:43:06 Hashimot o thyroidi tis 81850584 Active 2024 labs with pn panel and 28 week levothyr oxine 88 mcg daily Estrella Gutiérrez CNM [address], [place], [address], [facility] 5 15:32:05 Mixed anxiety and depressi ve disorder [id number] Active 2024 fluoxeti ne 20 mg daily Estrella Gutiérrez CNM [address], [place], [address], [facility] 15:32:25 Polycyst ic ovary syndrome 834957916 Active 2024 ALYSA DOLAN MD [address], [place], [address], [facility] 5 16:55:48 Obesity 845870039 Active 2024 BMI 41 2 bASA daily 34 week antenata l testing ALYSA DOLAN MD [address], [place], [address], [facility] 5 12:44:59 Migraine 99599439 Active 2024 Estrella Gutiérrez CNM [address], [place], [address], [facility] 5 16:27:31 Steriliz ation requeste d 297992783 Active 2024 tubal with c section, papers signed at 32 weeks ALYSA DOLAN MD [address], [place], [address], [facility] 5 11:16:19 Problem Notes None recorded. Procedures Surgical History Date Name Laterality Status Provider Name and Address Organization Details Recorded Time 4 Date of Last Pap Smear completed Elly Somers [facility] 11/24/2024 14:29:50 4 Caesarean Section completed Kandy Paul [facility] 05/25/2024 14:06:20 3 IUD Removal completed Andree Brooks [facility] [address], [place], [address], [facility] 11/19/2022 14:07:03 2 IUD Insertion completed Andree Brooks [facility] [address], [place], [address], [facility] 07/04/2022 15:36:20 0 Caesarean Section completed Adrianne Youngblood [facility] 11/22/2020 14:18:54 0 NST completed Aisha Zepeda MD [address], [place], [address], [facility] 07/03/2020 12:21:36 7 Dilation and Curettage completed Spring Flores [facility] 12/14/2019 13:44:04 Imaging Results None recorded. [...] completed Not Available Not Available Not Available [facility] ODT 75 mg disintegrat ing tablet 1 [...] Updated DateTime 05/24/2025 166.37 cm 42.9 kg/m2 702034.2 g 135/83 mm[Hg] Stephanie Zuñiga [facility] 05/24/2025 10:32:08 Date Recorded Body height Body mass index (BMI) Body weight Systolic And Diastolic Provider Name and Address Organization Details Last Updated DateTime 05/24/2025 166.37 cm 42.6 kg/m2 626749.02 g 135/83 mm[Hg] Yoana Maddox [facility] 05/24/2025 10:19:13 Social History Question Answer Notes LastModified by Organizat ion Details LastModified Time Tobacco Smoking Status Former Smoker Althea [email or web address], [facility] 08/05/2023 12:09:42 Do You Have An Advance Directive? No Information not available 05/23/2022 If You Are , What Was Your Level Of Alcohol Consumption Prior To ? Occasional [email or web address] Information not available 11/26/2024 Are You Blind [...] Or The Highest Degree You Have Received? [id number] Information not available 11/22/2020 When Did You Quit Smoking? 1-5yearssincel melanie [email or web address] Information not available 03/15/2025 Are There Any Guns Present In Your Home? No Information not available 11/22/2020 What Was The Date Of Your Most Recent Tobacco Screening? 12/24/2024 Information not available 12/24/2024 What Is Your Current Pack Years? 10packyears [email or web address] Information not available 03/15/2025 Do You Use Protection During Sex? No Information not available 11/22/2020 Do You Use Your Seat Belt Or Car Seat Routinely? Yes Information not available 11/22/2020 Are You Sexually Active? Yes [email or web address] Information not available 03/15/2025 Do You Have Smoke And Carbon Monoxide Detectors In Your Home? Yes Information not available 11/22/2020 How Much Tobacco Do You Smoke? No Information not available 11/22/2020 Do You Use Sunscreen Routinely? Yes Information not available 11/22/2020 Have You Used IV Drugs? No Information not available 05/23/2022 Do You Have Difficulty Walking Or Climbing Stairs? No [email or web address] Information not available 08/05/2023 Sex: Unknown Functional Status Question Answer Note LastModified by Organizat ion Details LastModified Time Do you use any illicit or recreational drugs? No Information not available 11/08/2020 Do you or have you ever used any other forms of tobacco or nicotine? No Information not available 03/15/2025 What is your level of alcohol consumption? None Information not available 12/16/2019 Do you or have you ever used smokeless tobacco? Never used smokeless tobacco [email or web address] Information not available 08/05/2023 Are you currently employed? Yes [email or web address] Information not available 03/15/2025 Are you able to walk independently without assistance or assistive devices? YESWOREST Information not available 11/08/2020 Are you able to care for yourself independently? 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 No [email or web address] Information not available 08/05/2023 Do you or have you ever used e-cigarettes or vape? Never used electronic cigarettes Information not available 08/05/2023 What is your exercise level? Occasional walking Information not available 12/16/2019 Mental Status Question Answer Note LastModified by Organization D etails LastModified Time Do you feel stressed (tense, restless, nervous, or anxious, or unable to sleep at night)? [id number] Information not available 11/22/2020 Family History Relationship Description Onset Age of this Age Resolved Age Notes LastModified by Organization Details LastModified Time Maternal Grandfather Diabetes mellitus [email or web address] Not available 2022 15:52:44 Maternal Grandfather Hypertensive disorder [email or web address] Not available 2022 15:52:44 Maternal Grandmother Family history of Cardiovascul ar disease [email or web address] Not available 03/15 15:27:24 Maternal Grandmother Hypertensive disorder [email or web address] Not available 2023 14:05:51 Maternal Grandmother Malignant neoplasm of breast 60 [email or web address] Not available 2024 15:27:24 Maternal Grandmother Malignant neoplasm of breast [email or web address] Not available 2024 15:27:24 Maternal Aunt Malignant neoplasm of breast 50 [email or web address] Not available 2024 15:27:24 Maternal Aunt Malignant neoplasm of breast 50 [email or web address] Not available 2024 15:27:24 Maternal Aunt Malignant neoplasm of breast [email or web address] Not available 2024 15:27:24 Medical History Condition Response Allergies (Food, seasonal, environmental ) N Other N Breast Cancer N Drug/Latex Allergies/Reactions N Blood Transfusion N Lung Disease N Dermatologic Disorders N Defects or Inherited Disease N Breast Problem N Gestational Diabetes Y Hematologic disorders N Anesthesia Complications N History of STI N Deep Vein Thrombosis N Polycystic ovary syndrome Y Anxiety Disorder Y Autoimmune disease N Arthritis N Infertility N Polyps N Acid Reflux (GERD) N History of abnormal pap Y Cancer N Stroke N Varicosities N Neurologic/Epilepsy Y Endometriosis N High Cholesterol N Headaches Y Fibromyalgia N Kidney Disease N Heart Problems N Kidney or Bladder Problems N Thyroid Problems Y GI Problems N Eating Disorder N Anemia [...] ICD10 Code Diagnosis IMO Codes Diagnosis Note [id number] ALYSA DOLAN MD [facility] [address] [address] 04/27/2025 14:10:20 04/27/2025 14:55:20 Sterilization requested 245634485 Z30.2 34175586 Obesity 036073541 E66.9 5858880874 Mixed anxi ety and depressive disorder 069954034 F32.A F41.9 778142 Cony thyroiditis 21 885343 E06.3 41371 Past pregn david history of section 585036661 Z98.520 4636418 Gestation period, 30 weeks 67229826 Z3A.30 7283617 [id number] MD Sheron GONZALEZ [address],[place] [address] 05/13/2025 09:54:06 05/13/2025 10:35:14 Past history of section 319838054 Z98.930 2611216 Cony thyroiditis 21 934036 E06.3 65643 Obesity 567450548 E66.9 1845922096 Gestation period, 32 weeks 2090193 Z3A.32 4513631 [id number] ALYSA DOLAN MD [facility] [address],[place] [address] 05/24/2025 09:27:05 05/24/2025 09:56:50 Obesity 914140471 O99.210 O24.410 077319 [id number] ALYSA DOLAN MD [facility] [address],[place] [address] 05/24/2025 09:29:31 05/24/2025 10:36:36 Maternal obesity complicating , childbirth and the puerperium, antepartum 3077831800 07 O99.210 5073000849 [id number] ALYSA DOLAN MD [facility] [address],[place] [address] 05/24/2025 09:29:45 05/24/2025 11:45:00 Sterilization requested 791662105 Z30.2 14129759 Mixed anxi ety and depressive disorder 615772835 F32.A F41.9 759604 Cony thyroiditis 21 460507 E06.3 88317 Past pregn david history of section 630953457 Z98.780 8543044 Gestation period, 34 weeks 09629051 Z3A.34 2601940 Health Concerns Section Related Observation LastModified by Organization Detai ls LastModified Time None Recorded Concern Status LastModified by Organization Details LastModified Time None Recorded Payers Encounter Date Sequence Insurance Name Policy Number Policy Linder Covered Member ID Linder Member ID Guarantor Name 05/24/2025 1 [facility] [id number] Keshav Ervin [id number] Yoana Ervin 05/24/2025 2 [place] [employer] Yoana Ervin [id number] Yoana Ervin Notes Date Note Type Note Provider Name and Address Organization Details Recorded Time 05/24/2025 text/html Generic HPI TemplateReported by Patient ALYSA DOLAN MD [address], [place], [address], [facility] 05/24/2025 11:43:25 OBGyn Episode Ob Episode Information Episode Created Date Number of Fetuses Patient Bloodtype Patient rh Status Prepregnancy Weight lbs Domestic Partner Domestic Partner Phone Father Name General Agent Status 12/25/19 25 1 O Positive 253 Nolanoralia Ervin OPEN Fetus Data First Name Last Name Admitted to NICU Weight (g) Sex Living Outcome Pediatric Complications Fetus ID Race Codes Race Delivery Type [id number] Problems Problem Notes hx LGA Problem Name Start Date End Date Resolution Snomed Code Not e Polycystic ovary syndrome 12/24/2024 [id number] Migraine 12/24/2024 95934733 Sterilization requested 01/18/2025 903207508 tubal with c se ction, papers signed at 32 weeks Past history of section 12/24/2024 852286963 x2, plan for re peat Mixed anxiety and depressive disorder 12/24/2024 733275582 fluoxeti ne 20 mg daily Obesity 12/24/2024 568215293 BMI 412 b ASA daily34 week testing Cony thyroiditis 12/24/2024 04394765 labs with pn pa reji and 28 weeklevothyroxine 88 mcg daily Morteza Calculation Initial Morteza Date Initial Exam Date Initial Exam Provider Initial Ultrasound Date Last Menstrual Period Date Ultra Sound Weeks Gestation 07/05/2025 11/24/2024 [email or web address] 10/27/2024 09/22/2024 0 Eighteen To Twenty Week [...] Weight in lbs Pre/Post Dialysis Refused Weight 255.695796659075 BP Diastolic BP Location Tested BP Systolic [...] Weight in lbs Pre/Post Dialysis Refused Weight 255.879105935858 BP Diastolic BP Location Tested BP Systolic [...] Weight in lbs Pre/Post Dialysis Refused Weight 254.293183346758 BP Diastolic BP Location Tested BP Systolic BP Type 78 L arm 147 sitting Fetus Heart Rate Present A Present Fetus Movement A Yes Comments Baby active, no issues. Khanhn g well. Anatomy incomplete today, needs heart views. [...] Weight in lbs Pre/Post Dialysis Refused Weight 254.262584307354 BP Diastolic BP Location Tested BP Systolic [...] Weight in lbs Pre/Post Dialysis Refused Weight 257.514823103722 BP Diastolic BP Location Tested BP Systolic [...] Type Weight in lbs Pre/Post Dialysis Refused 255.498309872097 BP Diastolic BP Location Tested BP Systolic [...] Weight in lbs Pre/Post Dialysis Refused Weight 255.811846001922 BP Diastolic BP Location Tested BP Systolic [...] Weight in lbs Pre/Post Dialysis Refused Weight 262.645718469603 BP Diastolic BP Location Tested BP Systolic BP Type 83 L arm 135 sitting Fetus Heart Rate Present Fetus Movement Comments Flowsheet Date 05/24/2025 Anthony Score Blood Edema Fundus Height Fundus Units Glucose Ketones Leukocytes Nitrite Labor Signs Protein Cervic Dilation Cervic Effacement Cervic Station Type Weight in lbs Pre/Post Dialysis Refused Weight 260.473303959325 BP Diastolic BP Location Tested BP Systolic [...]
--- OUTSIDE RECORDS SUMMARY | 2025-05-25 17:06 | XMS_ITS | Data Portability ---
Author Organization [facility] Address [address] [place] [address] Care Team Providers Care Vegetable Tester Name Role Phone CASSIE SANTAMARIA Primary Care Provider Assessment No assessment recorded. Plan of Treatment Reminders Order Date Submit Date Provider Last Modified By Organization Details Last Modified Time Details Appointments U/S OB BPP 2024 09:30A M ULTRASOUND Not available Not available Not available NST 2024 10:00A M NST SCHEDULE Not available Not available Not available OB ROUTINE 2024 10:45A Jesus Manuel DOLNA MD Not available Not available Not available [...] Not available SURG CSectio n 2024 07:30A Jesus Manuel DOLAN MD Not available Not [...] recorde d. Procedures None recorde d. Surgeries cesarea n section (SURG) [address], [address], 04/28/2025 09:28:16 tubal ligatio n at time of C-secti on (SURG) [address], [address], 04/28/2025 09:29:38 Imaging non-str ess test 2024 [address], [address], [place], [address], 05/24/2025 10:36:36 US, obstetr ic, follow- up 2024 025 [email or web address], [address], [place], [address], 05/24/2025 18:38:37 US, obstetr ic, biophys ical profile + non-str ess test 2024 025 [email or web address] [place], [address], [place], [address], 05/24/2025 18:38:37 Medication Orders None recorde d. Patient TargetsNo targets recorded. Patient InstructionsNo instructions recorded. Reason for Referral None Reported. Results Created Date Observation Date Name Description Value Unit Range Abnormal Flag Note LastModifiedBy Organization Detail LastModifiedTime 04/13/2004/13/2025 HIV 1/2 ANTIG EN/AN TIBOD Y, REFLE X CONFI RMATI ON HIV antigen/anti body Nonrea ctive nonrea ctive HIV-1 antig en and HIV-1 /HIV- 2 antib odies were not detec esperanza. No labor atory evide nce of HIV infec tion. Not Available [facility] (Lab) [address] [facility], [place], [address], 04/14/2025 20:15:12 04/13/2004/13/2025 GTT - GESTA MARYANNE L LELIA Cowan, ACOG OB glucose, 1 hour screen 186 mg/dL 70-135 high Not Available [facility] (Lab) [address] [place], [address], 04/14/2025 20:15:12 04/13/20 25 04/13/2025 TSH TSH 1.12 uIU/m L 0.30-5 .33 Not Available [facility] (Lab) [address] [place], [address], 04/14/2025 20:15:12 04/13/20 25 04/13/2025 HEMAT OCRIT (HCT) HCT 33.6 % (based on docume nted legal sex) 34.0-4 5.0 low Not Available [facility] (Lab) [address] [place], [address], 04/14/2025 20:15:13 04/13/20 25 04/13/2025 HEMOG LOBIN (HGB) HGB 10.0 g/dL (based on docume nted legal sex) 11.6-1 5.4 low Not Available [facility] (Lab) [address] [facility] [facility], [place], [address], 04/14/2025 20:15:13 04/13/20 25 04/13/2025 RPR SCREE N, REFLE X TITER /CONF IRMAT ION RPR qualitative Nonrea ctive nonrea ctive Not Available [facility] (Lab) [address] [facility] [facility], [place], [address], 04/14/2025 20:15:13 05/24/20 25 05/24/2025 US, obste tric, follo w-up No observ ation record ed. [facility] [address], [place], [address], 05/24/2025 13:39:01 05/24/20 25 05/24/2025 US, obste tric, bioph ysica l profi le + non-s tress test No observ ation record ed. [facility] [address], [place], [address], 05/24/2025 13:39:11 05/24/20 25 05/24/2025 US, obste tric, follo w-up No observ ation record ed. [email or web address], [facility], [place], [address], 05/24/2025 09:56:36 05/24/2005/24/2025 non-s tress test No observ ation record ed. [email or web address] [place] [address], [place], [address], 05/24/2025 10:33:51 05/24/20 non-s tress test No observ ation record ed. [email or web address] [place] [address], [place], [address], 05/24/2025 10:36:04 Result Notes None recorded. Problems Name Problem SNOMED Code Status Onset Date Resolution Date Notes Provider Name and Address Organization Details Recorded Time Obesity 826611237 Completed 2xwk NST's at 32WKS Elly Somers [facility] 5 13:40:47 Migraine 09565667 Completed fioricet and neuro consult Elly Somers [facility] 5 13:40:47 Gestatio nal diabetes mellitus 78958322 Completed 32wks 2xwk NSTs, BS QID, Wkly OB appts & serial growth u/s Elly Somers [facility] 5 13:40:47 Hyperten sive disorder 88945843 Completed CHTN delivery 38wks Elly Somers [facility] 5 13:40:47 Hypothyr oidism 06739610 Completed 100mcg levo Silvaanetito [facility], [facility] 4 13:47:29 Obesity 157027884 Completed pre-preg BMI [facility] 4 13:47:29 Large for gestatio n age fetus Completed EFW 91% at 19 weeks, 96% at 23 weeks, 94% at 27 weeks, serial growth, Master Collins [facility] 4 13:47:29 Past pregnanc y history of section 662610190 Completed desires RCS, 11/23 at 39w Master Tavaresle [facility] 4 13:47:29 Hypothyr oidism 28532359 Active 100mcg levo Britaney Karina [facility] 4 13:47:29 Large for gestatio n age fetus Completed 12/02/2023 EFW 91% at 19 weeks, 96% at 23 weeks, 94% at 27 weeks, serial growth, ALYSA DOLAN MD [address], [place], [address], [facility] 4 16:22:36 Pregnanc y 72858305 Completed 201907/18/2020 Elly jiménez, [facility] 5 15:18:19 Polyhydr amnios 80994220 Completed 06/12- .6 resolved Elly jiménez, [facility] 5 13:40:47 Pregnanc y 46588498 Completed 202211/28/2023 Elly jiménez, [facility] 5 15:18:19 Gestatio nal diabetes mellitus 90563637 Completed 2023 32wk antenata l testing, 2hr pp gtt. 1500mg Metformi n started 08/29/23- increase d to 1500mg 10/01/23 Master [facility], [facility] 4 13:47:29 Gestatio nal diabetes mellitus 46788545 Completed 202312/02/2023 32wk antenata l testing, 2hr pp gtt. 1500mg Metformi n started 08/29/23- increase d to 1500mg 10/01/23 ALYSA DOLAN MD [address], [place], [address], [facility] 4 16:22:58 Attentio n deficit hyperact ivity disorder 279877373 Active 2024 Elly jiménez, [facility] 5 14:28:34 Hashimot o thyroidi tis 46494545 Active 2024 labs with pn panel and 28 week levothyr oxine 88 mcg daily Estrella Gutiérrez CNM [address], [place], [address], [facility] 5 15:32:05 Past pregnanc y history of section 974991032 Active 2024 x2, plan for repeat ALYSA DOLAN MD [address], [place], [address], [facility] 15:43:06 Obesity 325698562 Active 2024 BMI 41 2 bASA daily 34 week antenata l testing ALYAS DOLAN MD [address], [place], [address], [facility] 12:44:59 Polycyst ic ovary syndrome 728199558 Active 2024 ALYSA DOLAN MD [address], [place], [address], [facility] 5 16:55:48 Mixed anxiety and depressi ve disorder 416589599 Active 2024 fluoxeti ne 20 mg daily Estrella Gutiérrez CNM [address], [place], [address], [facility] 15:32:25 Migraine 36320752 Active 2024 Estrella Gutiérrez CNM [address], [place], [address], [facility] 16:27:31 Pregnanc y 54700758 Active 2024 Elly jiménez, [facility] 15:18:19 Past pregnanc y history of section 975740561 Active 2024 x2, plan for repeat ALYSA DOLAN MD [address], [place], [address], [facility] 5 15:43:06 Hashimot o thyroidi tis 36914483 Active 2024 labs with pn panel and 28 week levothyr oxine 88 mcg daily Estrella Gutiérrez CNM [address], [place], [address], [facility] 5 15:32:05 Mixed anxiety and depressi ve disorder 075428501 Active 2024 fluoxeti ne 20 mg daily Estrella Gutiérrez CNM [address], [place], [address], [facility] 5 15:32:25 Polycyst ic ovary syndrome 169953695 Active 2024 ALYSA DOLAN MD [address], [place], [address], [facility] 5 16:55:48 Obesity 206187246 Active 2024 BMI 41 2 bASA daily 34 week antenata l testing ALYSA DOLAN MD [address], [place], [address], [facility] 5 12:44:59 Migraine 67300700 Active 2024 Estrella Gutiérrez CNM [address], [place], [address], [facility] 5 16:27:31 Steriliz ation requeste d 837201008 Active 2024 tubal with c section, papers signed at 32 weeks ALYSA DOLAN MD [address], [place], [address], [facility] 5 11:16:19 Problem Notes None recorded. Procedures Surgical History Date Name Laterality Status Provider Name and Address Organization Details Recorded Time 4 Date of Last Pap Smear completed Elly Somers [facility] 11/24/2024 14:29:50 4 Caesarean Section completed Kandy Paul [facility] 05/25/2024 14:06:20 3 IUD Removal completed Andree Brooks [facility] [address], [place], [address], [facility] 11/19/2022 14:07:03 2 IUD Insertion completed Andree Brooks [facility] [address], [place], [address], [facility] 07/04/2022 15:36:20 0 Caesarean Section completed Adrianne Youngblood [facility] 11/22/2020 14:18:54 0 NST completed Aisha Zepeda MD [address], [place], [address], [facility] 07/03/2020 12:21:36 7 Dilation and Curettage completed Spring Flores [facility] 12/14/2019 13:44:04 Imaging Results None recorded. [...] completed Not Available Not Available Not Available Nurte ODT 75 mg disintegrat ing tablet 1 [...] No t Available Vitals Date Recorded Body weight Body mass index (BMI) Body height Systolic And Diastolic Provider Name and Address Organization Details Last Updated DateTime 04/27/2025 471508.05 435 g 41.8 kg/m2 166.37 cm 141/82 mm[Hg] [facility] 04/27/2025 14:14:01 Date Recorded Body height Body mass index (BMI) Body weight Systolic And Diastolic Provider Name and Address Organization Details Last Updated DateTime 05/13/2025 166.37 cm 41.8 kg/m2 254668.05 g 129/81 mm[Hg] [facility] 05/13/2025 10:06:49 Date Recorded Body height Body mass index (BMI) Body weight Systolic And Diastolic Provider Name and Address Organization Details Last Updated DateTime 05/24/2025 166.37 cm 42.9 kg/m2 664731.2 g 135/83 mm[Hg] Stephanie Zuñiga [facility] 05/24/2025 10:32:08 Date Recorded Body height Body mass index (BMI) Body weight Systolic And Diastolic Provider Name and Address Organization Details Last Updated DateTime 05/24/2025 166.37 cm 42.6 kg/m2 674400.02 g 135/83 mm[Hg] [facility] 05/24/2025 10:19:13 Social History Question Answer Notes LastModified by Organizat ion Details LastModified Time Tobacco Smoking Status Former Smoker [facility] 08/05/2023 12:09:42 Do You Have An Advance Directive? No Information not available 05/23/2022 If You Are , What Was Your Level Of Alcohol Consumption Prior To ? Occasional [email or web address] Information not available 11/26/2024 Are You Blind [...] Or The Highest Degree You Have Received? [id number] Information not available 11/22/2020 When Did You Quit Smoking? 1-5yearssincel melanie [email or web address] Information not available 03/15/2025 Are There Any Guns Present In Your Home? No Information not available 11/22/2020 What Was The Date Of Your Most Recent Tobacco Screening? 12/24/2024 [email or web address] Information not available 12/24/2024 What Is Your Current Pack Years? 10packyears [email or web address] Information not available 03/15/2025 Do You Use Protection During Sex? No Information not available 11/22/2020 Do You Use Your Seat Belt Or Car Seat Routinely? Yes Information not available 11/22/2020 Are You Sexually Active? Yes [email or web address] Information not available 03/15/2025 Do You Have Smoke And Carbon Monoxide Detectors In Your Home? Yes Information not available 11/22/2020 How Much Tobacco Do You Smoke? No Information not available 11/22/2020 Do You Use Sunscreen Routinely? Yes Information not available 11/22/2020 Have You Used IV Drugs? No Information not available 05/23/2022 Do You Have Difficulty Walking Or Climbing Stairs? No [email or web address] Information not available 08/05/2023 Sex: Unknown Functional Status Question Answer Note LastModified by Organizat ion Details LastModified Time Do you use any illicit or recreational drugs? No Information not available 11/08/2020 Do you or have you ever used any other forms of tobacco or nicotine? No [email or web address] Information not available 03/15/2025 What is your level of alcohol consumption? None Information not available 12/16/2019 Do you or have you ever used smokeless tobacco? Never used smokeless tobacco [email or web address] Information not available 08/05/2023 Are you currently employed? Yes [email or web address] Information not available 03/15/2025 Are you able to walk independently without assistance or assistive devices? [email or web address] Information not available 11/08/2020 Are you able to care for yourself independently? Yes [email or web address] Information not available 08/05/2023 What is your occupation? [email or web address] Information not available 05/23/2022 Do you have difficulty dressing, bathing, grooming, or toileting? No [email or web address] Information not available 08/05/2023 Do you or have you ever used e-cigarettes or vape? Never used electronic cigarettes Information not available 08/05/2023 What is your exercise level? Occasional walking Information not available 12/16/2019 Mental Status Question Answer Note LastModified by Organization D etails LastModified Time Do you feel stressed (tense, restless, nervous, or anxious, or unable to sleep at night)? [id number] Information not available 11/22/2020 Family History Relationship Description Onset Age of this Age Resolved Age Notes LastModified by Organization Details LastModified Time Maternal Grandfather Diabetes mellitus [email or web address] Not available 2022 15:52:44 Maternal Grandfather Hypertensive disorder [email or web address] Not available 2022 15:52:44 Maternal Grandmother Family history of Cardiovascul ar disease [email or web address] Not available 03/15 15:27:24 Maternal Grandmother Hypertensive disorder [email or web address] Not available 2023 14:05:51 Maternal Grandmother Malignant neoplasm of breast 60 Not available 2024 15:27:24 Maternal Grandmother Malignant neoplasm of breast [email or web address] Not available 2024 15:27:24 Maternal Aunt Malignant neoplasm of breast 50 [email or web address] Not available 2024 15:27:24 Maternal Aunt Malignant neoplasm of breast 50 [email or web address] Not available 2024 15:27:24 Maternal Aunt Malignant neoplasm of breast [email or web address] Not available 2024 15:27:24 Medical History Condition Response Allergies (Food, seasonal, environmental ) N Other N Breast Cancer N Drug/Latex Allergies/Reactions N Blood Transfusion N Dermatologic Disorders N Lung Disease N Defects or Inherited [...] ICD10 Code Diagnosis IMO Codes Diagnosis Note [id number] Bear Lopez MD [place] [address] [address] 12/16/2019 10:01:00 12/16/2019 10:57:41 screening 284125506 Z36.87 4984 Arleen Perez CNM [place] [address],[place] [address] 12/16/2019 10:02:18 12/16/2019 11:34:28 test positive 337347229 Z32.01 Risk factors addressed: Tobacco Cessation, Safe [...] Sequential Screen handout given and discussed with patient.Ch ildbirth classes recommende d.New OB sheet given. If previous , counseling .Pt verbalizes that she understand s the importance of above instructio ns.All questions were answered. Patient reminded to have annual well woman examinatio n and address [facility] . Elevated blood-pressure reading without diagnosis of hypertension 762344462 R03.0 Repeat blood pressure 118/78. Pt states she was very nervous about appt. No history of hypertensi on. Will recheck at next visit. [id number] Bear Lopez MD [place] [address],[facility] [place] [address] 01/14/2020 10:52:16 01/14/2020 12:26:17 screening 617063160 Z36.82 Z36.0 Z36.89 Routine an tenatal care 891814855 Z34.81 [id number] Bear Lopez MD [place] [address],[place] [address] 01/14/2020 10:52:46 01/14/2020 12:30:13 screening 297830447 Z36.82 Z36.0 Z36.89 [id number] Bear Lopez MD [place] [address],[place] [address] 02/10/2020 14:46:10 02/12/2020 03:50:04 [id number] Arleen Perez CNM [place] [address],[place] [address] 02/10/2020 14:46:26 02/10/2020 16:20:06 Routine care 595625524 Z34.92 [id number] Bear Lopez MD [place] [address],[place] [address] 03/09/2020 15:21:46 03/09/2020 16:35:48 screening for malformation 816036663 Z36.3 [id number] Arleen Perez [facility] [address],[place] [address] 03/09/2020 15:26:40 03/12/2020 22:50:16 Routine care 431745523 Z34.92 Migraine 96236506 G43.90 9 [id number] Bear Lopez MD [place] [address],[place] [address] 04/05/2020 13:42:04 04/05/2020 14:41:04 screening 514717884 Z36.2 [id number] Arleen Perez [facility] [address],[place] [address] 04/05/2020 13:42:20 04/06/2020 15:33:35 Routine care 900803612 Z34.92 [id number] Bear Lopez MD [place] [address],[place] [address] 04/13/2020 14:54:07 04/14/2020 10:55:13 Polyhydramnios 49934550 O40.2XX0 Z3A.25 [id number] Bear Lopez MD [place] [address],[place] [address] 04/19/2020 09:18:24 04/19/2020 15:34:42 Polyhydramnios 16002254 O40.2XX0 Z3A.26 [id number] Arleen Perez [facility] [address],[place] [address] 05/03/2020 14:51:48 05/03/2020 15:24:54 Routine care 600787475 Z34.92 [id number] MD Sheron Bergman [address],[place] [address] 05/04/2020 13:56:53 05/04/2020 14:42:48 Gestational diabetes mellitus class A1 03890164 O24.410 O40.3XX0 Z3A.28 [id number] MD Sheron Bergman [address],[place] [address] 05/09/2020 13:57:07 05/09/2020 15:20:06 Polyhydramnios 12056161 O40.3XX0 [id number] Bear Lopez MD [place] [address],[place] [address] 05/09/2020 13:58:09 05/09/2020 15:46:12 [id number] MD Sheron Bergman [address],[place] [address] 05/15/2020 14:01:29 05/15/2020 14:43:54 Polyhydramnios 85002664 O40.3XX0 Z3A.30 43174 [facility] [address],[place] [address] 05/15/2020 14:02:04 05/16/2020 13:39:30 Routine care 292157586 Z34.92 [id number] Bear Lopez MD [place] [address],[place] [address] 05/22/2020 12:28:47 05/22/2020 13:57:54 Polyhydramnios 56482244 O40.3XX0 Z3A.31 [id number] Bear Lopez MD [place] [address],[place] [address] 05/29/2020 11:39:44 05/29/2020 13:16:36 Maternal obesity complicating , childbirth and the puerperium, antepartum 5454253220 07 O99.213 [id number] [facility] [address],[place] [address] 05/29/2020 11:41:01 05/30/2020 15:55:36 Routine care 708749669 Z34.92 [id number] MD Sheron Bergman [address],[place] [address] 05/29/2020 11:41:27 05/29/2020 13:50:38 Gestational diabetes mellitus 46194602 O24.410 O40.3XX0 O99.210 Z3A.32 [id number] MD Sheron Bergman [address],[place] [address] 06/01/2020 11:28:10 06/01/2020 16:06:15 Maternal obesity complicating , childbirth and the puerperium, antepartum 1922344561 07 O99.213 [id number] MD Sheron Bergman [address],[place] [address] 06/05/2020 11:02:13 06/05/2020 14:35:01 Polyhydramnios 16049572 O40.3XX0 Z3A.33 [id number] MD Sheron Bergman [address],[place] [address] 06/05/2020 11:02:52 06/05/2020 14:41:14 Maternal obesity complicating , childbirth and the puerperium, antepartum 7739584442 07 O99.213 [id number] MD Sheron Bergman [address],[place] [address] 06/05/2020 11:54:04 06/05/2020 14:53:25 Routine care 119277779 Z34.81 Polyhydramnios 51406385 O40.3XX0 Z3A.33 [id number] MD Sheron Bergman [address],[place] [address] 06/08/2020 11:25:58 06/08/2020 12:43:35 Maternal obesity complicating , childbirth and the puerperium, antepartum 4277123993 07 O99.213 [id number] MD Sheron Bergman [address],[place] [address] 06/12/2020 10:52:26 06/12/2020 13:38:23 Maternal obesity complicating , childbirth and the puerperium, antepartum 4680406210 07 O99.213 [id number] MD Sheron Bergman [address],[place] [address] 06/12/2020 10:52:53 06/12/2020 13:40:28 Polyhydramnios 03485972 O40.3XX0 Z3A.34 [id number] MD Sheron Bergman [address],[place] [address] 06/12/2020 10:53:23 06/12/2020 13:36:38 Polyhydramnios 07794071 O40.3XX0 Z3A.34 [id number] MD Sheron Bergman [address],[place] [address] 06/15/2020 11:21:29 06/15/2020 12:13:40 Maternal obesity complicating , childbirth and the puerperium, antepartum 4920890549 07 O99.213 [id number] MD Sheron Bergman [address],[place] [address] 06/19/2020 11:24:31 06/19/2020 12:15:27 Maternal obesity complicating , childbirth and the puerperium, antepartum 6103080626 07 O99.213 [id number] Arleen Perez [facility] [address],[place] [address] 06/19/2020 11:24:59 06/20/2020 14:02:25 Routine care 530060369 Z34.92 [id number] MD Sheron Bergman [address],[place] [address] 06/19/2020 12:39:47 06/19/2020 13:27:57 Polyhydramnios 20088138 O40.3XX0 Z3A.35 [id number] MD Sheron Bergman [address],[place] [address] 06/26/2020 11:20:51 06/26/2020 17:55:10 Maternal obesity complicating , childbirth and the puerperium, antepartum 9947674009 07 O99.213 [id number] Arleen Perez [facility] [address],[place] [address] 06/26/2020 11:22:31 06/26/2020 17:50:02 Routine care 385967430 Z34.92 Benign ess ential hypertension complicating , childbirth and the puerperium - not delivered 733233419 O10.019 [id number] MD Sheron Bergman [address],[place] [address] 06/26/2020 11:27:07 06/26/2020 17:54:13 Gestational diabetes mellitus 41371490 O24.414 Z3A.36 [id number] MD Wendy [place] [address],[place] [address] 06/29/2020 11:32:14 06/29/2020 12:16:23 Maternal obesity complicating , childbirth and the puerperium, antepartum 7796937618 07 O99.213 [id number] Aisha Zepeda MD [place] [address],[place] [address] 07/03/2020 11:25:07 07/03/2020 12:23:27 Gestational diabetes mellitus class A1 02644321 O24.410 Chronic hy pertension in obstetric context 8747459 I10 [id number] MD Sheron Paul [address],[place] [address] 07/03/2020 11:26:38 07/03/2020 12:02:22 Maternal obesity complicating , childbirth and the puerperium, antepartum 3621207100 07 O99.213 [id number] MD Sheron Bergman [address],[place] [address] 07/06/2020 11:23:54 07/06/2020 12:12:47 Maternal obesity complicating , childbirth and the puerperium, antepartum 2381318570 07 O99.213 [id number] Aisha Zepeda MD [place] [address],[place] [address] 07/18/2020 16:43:32 07/22/2020 16:45:25 Chronic hypertension in obstetric context 2872941 I10 External hemorrhoids 239 41248 K64.4 Gestationa l diabetes mellitus class A2 83593927 O24.414 care 06641044 8 Z39.2 [id number] Aisha Zepeda MD [place] [address],[place] [address] 08/08/2020 11:47:25 08/08/2020 14:08:17 care 649091695 Z39.2 Anxiety 17261244 F41.9 Gestationa l diabetes mellitus class A2 12911017 O24.414 Past pregn david history of gestational diabetes mellitus 554296172 Z86.32 [id number] Andree Brooks [facility] [address],[place] [address] 11/08/2020 10:42:23 11/08/2020 12:07:46 Gynecologic examination 22198334 Z01.419 Take Calcium with Vitamin D 1200mg [...] feeding Mixed anxi ety and depressive disorder 069274160 F41.8 Recently had a baby (Valdemar) 4mos [...] patient satisfacti on. Understand ing verbalized . [id number] Andree Brooks , [facility] [address] [address] 11/22/2020 14:05:56 11/22/2020 14:58:49 Mixed anxiety and depressive disorder 562808117 F41.8 Doing well on Wellbutrin & Fluoxetine [...] this patient s visit, including available hand tire vulcanizer upon arrive, temperatur e check and being asked a series of screening questions. All staff wore face coverings during this encounter, as well as provided additional cleaning and sanitizing of all surfaces, including countertop s, pens, chairs, door handles, light switches, etc, prior to and following the patient s visit. Adult heal th examination 171635380 Z00.00 R73.09 If needs a new PCP referral placed. [id number] Andree Brooks , [facility] [address],[place] [address] 05/23/2022 14:45:38 05/24/2022 15:12:10 Polycystic ovary syndrome 653180812 E28.2 E66.3 N92.6 Consider restarting Metform to [...] plan of care. Generalize d anxiety disorder 19556258 F41.1 Today we agreed to start weaning from Prozac.She will decrease to 10mg daily PO for the next 4-8wks. Feels she is managing stress/anx iety well & would like to try and come off this medication . Counseled on r/b's, most common side effects of this therapy with julissa pack to stop medication with any significan t abnormal change in mood especially with thoughts of suicide/se lf-harm/ramey rm to others. Understand ing verbalized . Vitamin D deficiency 347 28978 E55.9 Hx of Liseth D defWill recheck levels [id number] Bear Lopez MD [facility] [address] [address] 06/25/2022 16:11:31 06/26/2022 15:35:21 Obesity 548584596 E66.9 This patient is a 21-year-ol d [...] was given julissa pack and precaution s. [id number] [facility] [address],[place] [address] 07/04/2022 15:10:44 07/04/2022 15:53:26 Insertion of intrauterine contraceptive device 45323974 Z30.430 She has been counseled on all [...] understand ing. RTO x 6wks string check [id number] ANGELO [facility] [address],[place] [address] 08/16/2022 13:52:45 08/16/2022 14:20:03 IUD check 779818322 Z30.431 Patient is here for 4-6wk IUD string check. She denies complicati ons, pain, or unpleasant side effects. Happy with this control method. Wishes to continue. Polycystic ovary syndrome 250949404 E28.2 E66.3 N92.6 Opts to restart Metform [...] counseling and review of plan of care. [id number] [facility] [address],[place] [address] 11/15/2022 13:43:47 11/15/2022 16:34:54 Insulin resistance 338216796 E88.81 E28.2 Tolerating metformin well @ 1500mg nightly ER.She has lost 20#'s with this addition, making nutritiona l changes & just joined a gym.She if feeling better with more energy. Removal of intrauterine device 21928725 Z30.432 Wants IUD removed.Do esn't like the [...] ing of all the above instructio ns. [id number] MD Sheron Paul [address],[place] [address] 03/21/2023 12:48:14 03/21/2023 14:17:52 Abdominal pain in early 001427201 Z33.1 Z3A.00 [id number] Aisha Zepeda MD [facility] [address],[facility] [place] [address] 04/04/2023 12:34:28 04/04/2023 13:08:10 Uterine size for dates discrepancy 878767101 O26.841 Z3A.01 [id number] MD Sheron GONZALEZ [address],[place] [address] 04/25/2023 15:27:35 04/25/2023 16:22:54 [id number] ALYSA DOLAN MD [facility] [address],[place] [address] 04/25/2023 15:27:52 04/28/2023 11:44:04 Obesity 634971413 Z68.41 Cony thyroiditis 21 227284 E06.3 - levothyrox ine 100mg- followed by PCP test positive 918994614 Z32.01 1. Exam today within normal limits.2. GC/Clamydi a testing done; pap smear up to date. will f/u as indicated. 3. ACOG guidelines and plan of care for reviewed with patient. All questions answered.4 . Return to office in 5 weeks for new OB care8. Will need new OB labs at next visit.9. Genetic screening: desires. [id number] ALYSA DOLAN MD [facility] [address],[place] [address] 05/15/2023 15:21:47 05/15/2023 15:52:42 screening 003753355 Z36.82 Z3A.11 [id number] ALYSA DOLAN MD [facility] [address],[place] [address] 05/15/2023 15:22:10 05/15/2023 16:33:32 Gestation period, 11 weeks 85392643 Z3A.11 Hypothyroi dism in 386950933 E03.9 [id number] ALYSA DOLAN MD [facility] [address],[place] [address] 06/11/2023 16:01:04 06/12/2023 08:51:35 Maternal obesity complicating , childbirth and the puerperium, antepartum 7022588112 07 O99.212 Gestation period, 15 weeks 9923440 Z3A.15 [id number] Bear Lopez MD [facility] [address],[place] [address] 07/09/2023 11:28:16 07/09/2023 13:11:33 screening for malformation 286115807 Z36.3 O99.212 O99.282 Z3A.19 [id number] ALYSA DOLAN MD [facility] [address],[place] [address] 07/09/2023 11:28:46 07/09/2023 13:55:53 Gestation period, 19 weeks 55102544 Z3A.19 Large for gestation age fetus 446736770 O36.62X0 [id number] Bear Lopez MD [facility] [address],[place] [address] 08/05/2023 11:36:00 08/05/2023 14:01:29 Large for gestation age fetus 163131301 O36.62X0 Z3A.23 [id number] ALYSA DOLAN MD [facility] [address],[place] [address] 08/05/2023 12:09:33 08/05/2023 14:55:07 Large for gestation age fetus 700955545 O36.62X0 Past pregn david history of section 661060129 Z98.890 Hypothyroi dism in 244742571 E03.9 [id number] ALYSA DOLAN MD [facility] [address],[place] [address] 08/26/2023 15:25:06 08/26/2023 17:30:03 Gestational diabetes mellitus class A1 20089383 O24.410 Pt here for diet teaching. Diet [...] snacks with controlled carb amounts for a intermodal customer service stable control of blood sugar. Pt has an appt scheduled with MM for next week to review her BS log. Pt verbalized understand ing of informatio n discussed. Yamilka caceres, [place] [id number] Bear Lopez MD [facility] [address],[place] [address] 09/01/2023 11:29:25 09/01/2023 12:26:03 Maternal obesity complicating , childbirth and the puerperium, antepartum 0908043057 07 O99.213 O24.410 O99.212 Z3A.27 [id number] ALYSA DOLAN MD [facility] [address],[place] [address] 09/01/2023 11:30:18 09/01/2023 14:06:37 screening 031197507 Z36.89 Gestationa l diabetes mellitus 74436098 O24.415 Past pregn david history of section 959812565 Z98.890 Hypothyroidism 62629448 E03.9 Large for gestation age fetus 465048722 O36.62X0 Gestation period, 27 weeks 46151735 Z3A.27 [id number] ALYSA DOLAN MD [facility] [address],[place] [address] 09/23/2023 15:00:28 09/23/2023 15:58:54 Gestational diabetes mellitus 06088107 O24.415 Gestation period, 30 weeks 27531056 Z3A.30 Large for gestation age fetus 783381455 O36.62X0 [id number] Bear Lopez MD [facility] [address],[place] [address] 10/07/2023 14:58:51 10/07/2023 16:28:20 Gestational diabetes mellitus complicating 4341582127 9106 O24.415 O36.63X0 Z3A.32 [id number] Bear Lopez MD [facility] [address],[place] [address] 10/07/2023 18:19:16 10/07/2023 18:34:19 [id number] ALYSA DOLAN MD [facility] [address],[place] [address] 10/10/2023 14:57:16 10/10/2023 15:36:56 Gestational diabetes mellitus 01918730 O24.415 [id number] MD Sheron Bergman [address],[place] [address] 10/10/2023 14:57:34 10/10/2023 16:03:41 Gestational diabetes mellitus 03968986 O24.410 Z3A.32 [id number] ALYSA DOLAN MD [facility] [address],[place] [address] 10/10/2023 14:57:50 10/13/2023 02:10:08 Gestational diabetes mellitus class A2 01590744 O24.414 Cony thyroiditis 21 216465 E06.3 Past pregn david history of section 973621423 Z98.890 Gestation period, 33 weeks 74553745 Z3A.33 [id number] ALYSA DOLAN MD [facility] [address],[place] [address] 10/14/2023 14:58:07 10/14/2023 16:16:52 Gestational diabetes mellitus 54316489 O24.419 [id number] Bear Lopez MD [facility] [address],[place] [address] 10/14/2023 14:58:27 10/14/2023 16:02:05 Gestational diabetes mellitus 55008008 O24.410 O99.283 O99.214 Z3A.33 [id number] ALYSA DOLAN MD [facility] [address],[place] [address] 10/14/2023 14:58:41 10/16/2023 13:37:55 Gestational diabetes mellitus 14722367 O24.419 Past pregn david history of section 982499337 Z98.890 Hypothyroidism 67278532 E03.9 Obesity 490512310 Z68.41 Gestation period, 33 weeks 03675132 Z3A.33 [id number] ALYSA DOLAN MD [facility] [address],[place] [address] 10/21/2023 15:25:18 10/21/2023 16:10:12 Gestational diabetes mellitus 20746751 O24.419 [id number] Bear Lopez MD [facility] [address],[place] [address] 10/21/2023 15:25:40 10/21/2023 16:40:28 Gestational diabetes mellitus 70208331 O24.410 O99.283 O99.214 Z3A.34 [id number] ALYSA DOLAN MD [facility] [address],[place] [address] 10/21/2023 15:26:01 10/27/2023 01:15:32 Gestational diabetes mellitus 87573501 O24.410 O99.283 O99.214 Z3A.34 Past pregn david history of section 563563607 Z98.890 Obesity 168893015 Z68.41 Cony thyroiditis 21 787501 E06.3 Hypothyroidism 78214922 E03.9 Gestation period, 34 weeks 30314129 Z3A.34 [id number] MD Sheron GONZALEZ [address],[place] [address] 10/28/2023 14:54:47 10/28/2023 15:48:05 Gestational diabetes mellitus 70903572 O24.410 O99.283 O99.214 Z3A.34 [id number] MD Sheron Bergman [address],[place] [address] 10/28/2023 14:55:37 10/29/2023 02:54:57 Maternal obesity complicating , childbirth and the puerperium, antepartum 0004236969 07 O99.213 O24.410 Z3A.35 [id number] ALYSA DOLAN MD [facility] [address],[place] [address] 10/28/2023 14:56:05 10/28/2023 18:04:07 [id number] MD Sheron GONZALEZ [address],[place] [address] 11/04/2023 14:56:47 11/04/2023 15:36:40 Gestational diabetes mellitus 07381178 O24.410 O99.283 O99.214 Z3A.34 [id number] Bear Lopez MD [facility] [address] [place] [address] 11/04/2023 14:57:08 11/04/2023 16:22:57 Gestational diabetes mellitus 58088416 O24.410 O99.283 O99.214 Z3A.36 [id number] ALYSA DOLAN MD [facility] [address],[place] [address] 11/04/2023 14:58:43 11/05/2023 04:24:48 Gestational diabetes mellitus 54205177 O24.410 O99.283 O99.214 Z3A.36 Cony thyroiditis 21 098103 E06.3 Past pregn david history of section 366958105 Z98.890 Obesity 384725478 Z68.41 Gestation period, 36 weeks 12458590 Z3A.36 [id number] Bear Lopez MD [facility] [address],[place] [address] 11/11/2023 13:59:43 11/11/2023 14:37:52 Gestational diabetes mellitus 56052796 O24.410 Z3A.37 [id number] Bear Lopez MD [facility] [address],[place] [address] 11/11/2023 14:00:01 11/11/2023 15:32:36 Gestational diabetes mellitus 02973456 O24.419 [id number] Bear Lopez MD [facility] [address],[place] [address] 11/18/2023 14:47:06 11/18/2023 17:40:28 Gestational diabetes mellitus 53519150 O24.415 Z3A.38 Body mass index 40+ - severely obese 621524770 Z68.41 [id number] Bear Lopez MD [facility] [address],[place] [address] 11/18/2023 14:47:29 11/18/2023 16:19:21 Gestational diabetes mellitus 04582513 O24.415 Z3A.38 [id number] ALYSA DOLAN MD [facility] [address],[place] [address] 11/18/2023 14:47:49 11/19/2023 11:24:26 Hemorrhoids 25314786 K64.9 Past pregn david history of section 156353739 Z98.890 Hypothyroidism 00705175 E03.9 Gestationa l diabetes mellitus 66321689 O24.415 Z3A.38 Gestation period, 38 weeks 09728145 Z3A.38 [id number] ALYSA DOLAN MD [facility] [address] [address] 12/02/2023 15:57:52 12/02/2023 16:34:54 Prediabetes 484538465 R73.03 - continue metformin 1500mg daily Hypothyroidism 55016798 E03.9 - continue levothyrox ine care 10932037 8 Z39.2 S/p c section on . Incision well-heale d without any signs of infection2 . Family planning options discussed. She is unsure of what she would like to use to prevent . She will continue to abstain from intercours e until her 6wk visit.3. RTC 4wks for post-partu m check [id number] ALYSA DOLAN MD [facility] [address],[place] [address] 12/30/2023 16:20:09 12/30/2023 17:07:53 care 840873310 Z39.2 S/p RLTCS 5 weeks ago here [...] need arises prior; will need pap smear [id number] Bear Lopez MD [facility] [address],[place] [address] 05/25/2024 13:48:51 05/25/2024 14:43:00 Gynecologic examination 24681784 Z01.419 Annual gynecologi carlos exam performed. Patient will come back in [...] - PCP STI testing - declined Dysmenorrhea 381660700 N 94.6 Recommende d ibuprofen 600 mg q6-8 hrs PRN during heavy or painful menses. Pt may also apply a heating pad PRN.Discus sed hormonal contracept buddy options for cycle regulation and to help with dysmenorrh ea, pt declined at this time.Pt to call if symptoms worsen or w/ any concerns. [id number] Bear Lopez MD [facility] [address],[place] [address] 10/27/2024 13:29:30 10/27/2024 13:59:09 Uncertain viability of 586452155 O36.80X0 Z3A.01 [id number] Bear Lopez MD [facility] [address],[place] [address] 11/10/2024 10:55:11 11/10/2024 11:37:09 Uterine size for dates discrepancy 105694237 O26.841 Z3A.01 [id number] Estrella Gutiérrez CNM [facility] [address],[place] [address] 11/24/2024 13:47:24 11/24/2024 18:51:30 Bacterial disease screening 509907809 Z11.8 43278 [id number] Bear Lopez MD [facility] [address],[place] [address] 11/24/2024 13:47:55 11/24/2024 14:24:22 [id number] Etsrella Gutiérrez CNM [facility] [address] [place] [address] 11/26/2024 09:54:22 11/26/2024 10:37:07 screening 059710934 Z36.89 s russell of fetus 75256501 Z34.90 8029575655 Prediabetes 911944430 R7 3.03 958727 Amenorrhea 92253062 N91. 2 39373 [id number] Bear Lopez MD [facility] [address] [place] [address] 12/23/2024 17:19:46 12/24/2024 06:55:00 screening 180492292 Z36.82 Z3A.12 506679 [id number] Estrella Gutiérrez CNM [facility] [address],[place] [address] 12/24/2024 14:42:00 12/24/2024 16:30:42 Gestation period, 12 weeks 27027861 Z3A.12 2057222 care status 24 1756071 Z34.80 7919437812 [id number] ALYSA DOLAN MD [facility] [address],[place] [address] 01/18/2025 14:46:18 01/18/2025 15:47:23 Sterilization requested 684920413 Z30.2 92607021 Obesity 797876117 E66.9 0271151559 Past pregn david history of section 892849496 Z98.667 1666690 Gestation period, 16 weeks 74296538 Z3A.16 8261795 [id number] ALYSA DOLAN MD [facility] [address],[place] [address] 02/15/2025 16:57:58 02/16/2025 08:54:10 screening for malformation 727883946 Z36.3 Z3A.20 9065438483 [id number] ALYSA DOLAN MD [facility] [address],[place] [address] 02/15/2025 16:58:21 02/18/2025 00:42:17 Obesity 575810543 E66.9 9384448103 Mixed anxi ety and depressive disorder 712474427 F32.A F41.9 880579 Cony thyroiditis 21 390396 E06.3 37343 Past pregn david history of section 944017650 Z98.424 6378073 Gestation period, 20 weeks 21299652 Z3A.20 8294805 [id number] ALYSA DOLAN MD [facility] [address],[place] [address] 03/15/2025 15:19:16 03/15/2025 16:22:20 Follow-up encounter 807771164 Z36.2 Z3A.24 2058778766 [id number] ALYSA DOLAN MD [facility] [address],[place] [address] 03/15/2025 15:19:45 03/15/2025 16:58:58 Elevated blood-pressure reading without diagnosis of hypertension 642576374 R03.0 53574994 Acquired hypothyroidism 304221031 E03.9 57554 - continue levothyrox ine Past pregn david history of section 724494012 Z98.432 9665945 Cony thyroiditis 21 685431 E06.3 58472 Mixed anxi ety and depressive disorder 070322253 F32.A F41.9 698361 Obesity 404688326 E66.9 4799015974 Sterilizat ion requested 063498012 Z30.2 71735876 Gestation period, 24 weeks 476175842 Z3A.24 7545908 [id number] ALYSA DOLAN MD [facility] [address],[facility] [place] [address] 04/13/2025 11:42:19 04/13/2025 12:52:39 Sterilization requested 263930544 Z30.2 02550328 Obesity 663448310 E66.9 4717448459 Mixed anxi ety and depressive disorder 198351333 F32.A F41.9 486850 Cony thyroiditis 21 237074 E06.3 89152 Past pregn david history of section 810398042 Z98.692 4386907 Gestation period, 28 weeks 63093913 Z3A.28 6452407 [id number] ALYSA DOLAN MD [facility] [address],[facility] [place] [address] 04/27/2025 14:10:20 04/27/2025 14:55:20 Sterilization requested 942903957 Z30.2 18252701 Obesity 032232566 E66.9 2824307802 Mixed anxi ety and depressive disorder 625642856 F32.A F41.9 701449 Cony thyroiditis 21 271351 E06.3 58701 Past pregn david history of section 613656462 Z98.912 8409812 Gestation period, 30 weeks 37796817 Z3A.30 2244108 788168 ALYSA DOLAN MD [facility] [address],[place] [address] 05/13/2025 09:54:06 05/13/2025 10:35:14 Past history of section 835717421 Z98.195 1224874 Cony thyroiditis 21 059241 E06.3 72790 Obesity 925342478 E66.9 4250190092 Gestation period, 32 weeks 9392338 Z3A.32 7811030 [id number] ALYSA DOLAN MD [facility] [address],[place] [address] 05/24/2025 09:27:05 05/24/2025 09:56:50 Obesity 152334015 O99.210 O24.410 508838 [id number] ALYSA DOLAN MD [facility] [address],[place] [address] 05/24/2025 09:29:31 05/24/2025 10:36:36 Maternal obesity complicating , childbirth and the puerperium, antepartum 5005751878 07 O99.210 1498176245 [id number] MD Sheron GONZALEZ [address],[place] [address] 05/24/2025 09:29:45 05/24/2025 11:45:00 Sterilization requested 814758094 Z30.2 67514289 Mixed anxi ety and depressive disorder 856578645 F32.A F41.9 991876 Cony thyroiditis 21 243583 E06.3 92657 Past pregn david history of section 466388079 Z98.357 5693879 Gestation period, 34 weeks 82955317 Z3A.34 6275375 Health Concerns Section Related Observation LastModified by Organization Detai ls LastModified Time None Recorded Concern Status LastModified by Organization Details LastModified Time None Recorded Advance Directives Directive N: Payers Insurance Date Sequence Insurance Name Policy Number Policy Linder Covered Member ID Linder Member ID Guarantor Name 10/07/2023 2 [employer] [place] [employer] DOS ON OR AFTER 2020 (MEDICAID REPLACEMENT - HMO) Yoana Ervin [id number] Yoana Ervin 09/17/2023 2 [place] [facility] Yoana Ervin [id number] Yoana Ervin 08/13/2023 1 [facility] [id number] Keshav Ervin [id number] Yoana Ervin 10/28/2023 2 [facility] (MEDICAID HMO) [id number] Yoana Ervin [id number] Yoana Ervin 08/13/2023 1 [employer] ([place]) [id number] Keshav Ervin [id number] Yoana Ervin 05/21/2025 1 [facility] [id number] Keshav Ervin [id number] Yoana Ervin 04/28/2025 2 [place] [facility] Yoana Ervin [id number] Yoana Ervin Notes Date Note Type Note Provider Name and Address Organization Details Recorded Time 04/27/2025 text/html Generic HPI TemplateReported by Patient ALYSA DOLAN MD [address], [place], [address], [facility] 04/27/2025 14:54:51 05/13/2025 text/html Generic HPI TemplateReported by Patient Yoana jiménez, [facility] 05/13/2025 11:19:50 05/24/2025 text/html Generic HPI TemplateReported by Patient ALYSA DOLAN MD [address], [place], [address], [facility] 05/24/2025 11:43:25 OBGyn Episode Ob Episode Information Episode Created Date Number of Fetuses Patient Bloodtype Patient rh Status Prepregnancy Weight lbs Domestic Partner Domestic Partner Phone Father Name Digital Research Analyst Status 12/16/19 20 1 CLOSED Fetus Data [...] Domestic Partner Domestic Partner Phone Father Name Digital Research Analyst Status 01/14/20 20 1 O Positive 265 CLOSED Fetus Data First Name Last Name Admitted to NICU Weight (g) Sex Living Outcome Pediatric Complications Fetus ID Race Codes Race Delivery Type 3118.44 5 M Full Term 2399 Primary Problems Problem Notes 3 hr unsuccessful - checking BS QID Problem Name Start Date End Date Resolution Snomed Code Not e Obesity 884186704 2xwk NST's at 32WKS Migraine 26980291 fioricet a nd neuro consult Polyhydramnios 05/09/2020 [id number] 05/28 6- 29.6 resolved Gestational diabetes mellitus 54503419 32wks 2xwk NSTs , BS QID, Wkly OB appts & serial growth u/s Hypertensive disorder 12070944 CHTN delivery 38wks Morteza Calculation Initial Morteza [...] Gestation 0 [email or web address] 01/14/2020 07/23/20 20 0 Pre-sukhwinder Flowsheet Flowsheet Date 01/14/2020 Anthony Score Blood Edema Fundus Height Fundus Units Glucose Ketones Leukocytes Nitrite Labor Signs Protein Cervic Dilation Cervic Effacement Cervic Station 12 trace Type Weight in lbs Pre/Post Dialysis Refused Weight 262.611119044436 BP Diastolic BP Location Tested BP Systolic [...] Weight in lbs Pre/Post Dialysis Refused Weight 261.67899798570 BP Diastolic BP Location Tested BP Systolic [...] Weight in lbs Pre/Post Dialysis Refused Weight 257.544271820372 BP Diastolic BP Location Tested BP Systolic BP Type 79 122 Fetus Heart Rate Present A 156 Fetus Movement A Yes Comments Pt has a history of migraine s. She has them 2-3 times per week. Has been treated in past by pcp. I will send out fioricet but would also like neuro consult. Pt ageed. Pt case sent to [facility]. Flowsheet Date 04/05/2020 Anthony Score Blood [...] Weight in lbs Pre/Post Dialysis Refused Weight 257.152653849673 BP Diastolic BP Location Tested BP Systolic BP Type 78 L arm 134 sitting Fetus Heart Rate Present A 150 Fetus Movement A Yes Comments h/a significantly improved w faye capellan. Pt has not rec'd call to schedule neuro consult. Pt case sent to [facility]. Slightly increased arnav on u/s today. Significant family history of [...] Weight in lbs Pre/Post Dialysis Refused Weight 256.413785296232 BP Diastolic BP Location Tested BP Systolic BP Type 84 R arm 132 sitting Fetus Heart Rate Present A 140 Fetus Movement A Yes Comments Multiple elevated blood suga rs. GDM. Will schedule diet teaching pooja (discussed very basic today) and plan on starting testing at 32 weeks. Pt verbalized understanding. Pt having a boy Gunner. Flowsheet Date 05/04/2020 Anthony Score Blood Edema [...] Weight in lbs Pre/Post Dialysis Refused Weight 255.999921066632 BP Diastolic BP Location Tested BP Systolic [...] Weight in lbs Pre/Post Dialysis Refused Weight 255.258582635067 BP Diastolic BP Location Tested BP Systolic [...] Weight in lbs Pre/Post Dialysis Refused Weight 252.261336182431 BP Diastolic BP Location Tested BP Systolic [...] Weight in lbs Pre/Post Dialysis Refused Weight 255.062792598268 BP Diastolic BP Location Tested BP Systolic BP Type 80 R arm 150 sitting 79 L arm 133 sitting Fetus Heart Rate Present A 145 Fetus Movement A Yes Comments to repeat ultrasound in 1 we ek for polyhydramnios, has twice weekly NSTs, BPP ease at the [facility] evaluation Flowsheet Date 06/15/2020 Anthony Score Blood [...] Weight in lbs Pre/Post Dialysis Refused Weight 252.496336537706 BP Diastolic BP Location Tested BP Systolic [...] Weight in lbs Pre/Post Dialysis Refused Weight 255.653974399495 BP Diastolic BP Location Tested BP Systolic [...] Weight in lbs Pre/Post Dialysis Refused Weight 253.577949985643 BP Diastolic BP Location Tested BP Systolic [...] Weight in lbs Pre/Post Dialysis Refused Weight 234.804089216618 BP Diastolic BP Location Tested BP Systolic [...] Estim ated Date of Delivery false Thalassemia (Turkmen, Georgian, Mediterranean, Or Background): MCV < 80 false Neural Tube Defect (Meningomyelocele, Spina Bifi da, Or Anencephaly) false Congenital Heart Defect false Down Syndrome false Marvin-Sachs (eg, Christianity, Cajun, English-Indonesian) f alse Giuliana Disease false Sickle Cell Disease Or Trait () false Hemophilia Or Other Blood Disorders false Muscular Dystrophy false Cystic Fibrosis false [place]'s Chorea false Intellectual Disability/Autism false If Yes, [...] Date Comments 0 38.2 Low Transvers e Aisha Zepeda MD Discharge Information Feeding Method Contraceptive Method Maternal HG B and HCT Levels Ob Episode Information Episode Created Date Number of Fetuses Patient Bloodtype Patient rh Status Prepregnancy Weight lbs Domestic Partner Domestic Partner Phone Father Name Digital Research Analyst Status 05/15/20 23 1 O Positive 238.8 CLOSED Fetus Data First Name Last Name Admitted to NICU Weight (g) Sex Living Outcome Pediatric Complications Fetus ID Race Codes Race Delivery Type 3713.78 45 M true Full Term 80387 Repeat Problems Problem Notes Problem Name Start Date End Date Resolution Snomed Code Not e Large for gestation age fetus EFW 91% at 19 weeks, 96% at 23 weeks, 94% at 27 weeks, serial growth, Obesity [id number] pre-preg B [place] 38 Past history of section [id number] desires [facility], 11/23 at 39w Gestational diabetes mellitus 08/22/2023 [id number] 32wk testing, 2hr pp gtt. 1500mg Metformin started 08/29/23- increased to 1500mg 10/01/23 Hypothyroidism [id number] 100mc g levo Morteza Calculation Initial Morteza [...] Date Ultra Sound Latest Days Gestation 0 [email or web address] 05/15/2023 11/29/19 24 0 Pre-sukhwinder Flowsheet Flowsheet Date 05/15/2023 Anthony Score Blood Edema Fundus Height Fundus Units Glucose Ketones Leukocytes Nitrite Labor Signs Protein Cervic Dilation Cervic Effacement Cervic Station Type Weight in lbs Pre/Post Dialysis Refused Weight 238.167521438970 BP Diastolic BP Location Tested BP Systolic BP Type 75 122 Fetus Heart Rate Present A 154 Fetus Movement Comments Patient presents to [facility] OB care. 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 Stopped taking progesterone at [...] Weight in lbs Pre/Post Dialysis Refused Weight 243.491119907930 BP Diastolic BP Location Tested BP Systolic [...] Weight in lbs Pre/Post Dialysis Refused Weight 249.310568622106 BP Diastolic BP Location Tested BP Systolic [...] Weight in lbs Pre/Post Dialysis Refused Weight 249.902510911115 BP Diastolic BP Location Tested BP Systolic [...] Weight in lbs Pre/Post Dialysis Refused Weight 246.617457143739 BP Diastolic BP Location Tested BP Systolic [...] Weight in lbs Pre/Post Dialysis Refused Weight 244.145600072639 BP Diastolic BP Location Tested BP Systolic [...] Weight in lbs Pre/Post Dialysis Refused Weight 244.600539297050 BP Diastolic BP Location Tested BP Systolic [...] Weight in lbs Pre/Post Dialysis Refused Weight 241.33710155796 BP Diastolic BP Location Tested BP Systolic [...] Weight in lbs Pre/Post Dialysis Refused Weight 241.69967552527 BP Diastolic BP Location Tested BP Systolic [...] Weight in lbs Pre/Post Dialysis Refused Weight 245.182334231454 BP Diastolic BP Location Tested BP Systolic [...] ligation. Considering cycle tracking vs LARC. BPP 1010. Continue weekly testing. RTC 1 week. Flowsheet [...] Weight in lbs Pre/Post Dialysis Refused Weight 242.266405483487 BP Diastolic BP Location Tested BP Systolic [...] Weight in lbs Pre/Post Dialysis Refused Weight 240.362034340175 BP Diastolic BP Location Tested BP Systolic [...] Weight in lbs Pre/Post Dialysis Refused Weight 240.640900418684 BP Diastolic BP Location Tested BP Systolic [...] Weight in lbs Pre/Post Dialysis Refused Weight 241.69663351398 BP Diastolic BP Location Tested BP Systolic BP Type 78 130 Fetus Heart Rate Present A 150 Fetus Movement A Yes Comments Doing well, no issues. F/PP wnl. BPP 05/06 today. RCS scheduled 11/23. Having some issues with hemorrhoids, anusol ordered. Good movement, no ctx/LOF/VB. Menstrual History Last Menstrual Date Menses Monthly On Bcp Conception Prior Menses Frequency Hcg Plus Date Menarche Onset Age Genetic Screening And Infection History Question Response Note Mental Retardation/Autism false Patient's Age Will Be 35 Yea rs Or Older At Estimated Date of Delivery false Thalassemia (Turkmen, Georgian, Mediterranean, Or Background): MCV < 80 false Neural Tube Defect (Meningom yelocele, Spina Bifida, Or Anencephaly) false Congenital Heart Defect false Down Syndrome false Marvin-Sachs (eg, Christianity, Cajun, English-Indonesian) f alse Giuliana Disease false Sickle Cell Disease Or Trait () false Hemophilia Or Other Blood Disorders false Muscular Dystrophy false Cystic Fibrosis false [place]'s Chorea false Intellectual Disability/Autism false If Yes, [...] Regional-Sp inal 39.2 Low Transvers e false Alysa Dolan MD Gestation al diabetes mellitus, History of section,H ypothyroi dism,Larg e for gestation age fetus,Obe sity Discharge Information Feeding Method Contraceptive Method Maternal HG B and HCT Levels Ob Episode Information Episode Created Date Number of Fetuses Patient Bloodtype Patient rh Status Prepregnancy Weight lbs Domestic Partner Domestic Partner Phone Father Name Digital Research Analyst Status 12/25/19 25 1 O Positive 253 Nolan Ervin OPEN Fetus Data First Name Last Name Admitted to NICU Weight (g) Sex Living Outcome Pediatric Complications Fetus ID Race Codes Race Delivery Type [id number] Problems Problem Notes hx LGA Problem Name Start Date End Date Resolution Snomed Code Not e Polycystic ovary syndrome 12/24/2024 [id number] Migraine 12/24/2024 [id number] Sterilization requested 01/18/2025 [id number] tubal with c se ction, papers signed at 32 weeks Past history of section 12/24/2024 [id number] x2, plan for re peat Mixed anxiety and depressive disorder 12/24/2024 406066073 fluoxeti ne 20 mg daily Obesity 12/24/2024 882929238 BMI 412 b ASA daily34 week testing Cony thyroiditis 12/24/2024 [id number] labs with pn pa reji and 28 weeklevothyroxine 88 mcg daily Morteza Calculation Initial Morteza Date Initial Exam Date Initial Exam Provider Initial Ultrasound Date Last Menstrual Period Date Ultra Sound Weeks Gestation 07/05/2025 11/24/2024 [email or web address] 10/27/2024 09/22/2024 0 Eighteen To Twenty Week Morteza Update Ultra Sound Date Fundal Height At Umbil Quickening Date Ultra Sound Latest Weeks Gestation Final Morteza Confirmed By Final Morteza Confirmed Date Final Morteza Date Ultra Sound Latest Days Gestation 0 0 Pre-sukhwinder Flowsheet Flowsheet Date 12/24/2024 Anthony Score Blood Edema Fundus Height Fundus Units Glucose Ketones Leukocytes Nitrite Labor Signs Protein Cervic Dilation Cervic Effacement Cervic Station neg none none trace Type Weight in lbs Pre/Post Dialysis Refused Weight 255.368643601023 BP Diastolic BP Location Tested BP Systolic [...] Weight in lbs Pre/Post Dialysis Refused Weight 255.091041849632 BP Diastolic BP Location Tested BP Systolic [...] Weight in lbs Pre/Post Dialysis Refused Weight 254.428103585234 BP Diastolic BP Location Tested BP Systolic BP Type 78 L arm 147 sitting Fetus Heart Rate Present A Present Fetus Movement A Yes Comments Baby active, no issues. Doin g well. Anatomy incomplete today, needs heart [...] Weight in lbs Pre/Post Dialysis Refused Weight 254.838265287532 BP Diastolic BP Location Tested BP Systolic [...] Weight in lbs Pre/Post Dialysis Refused Weight 257.846641112123 BP Diastolic BP Location Tested BP Systolic [...] Type Weight in lbs Pre/Post Dialysis Refused 255.057488641562 BP Diastolic BP Location Tested BP Systolic [...] Weight in lbs Pre/Post Dialysis Refused Weight 255.220487685405 BP Diastolic BP Location Tested BP Systolic [...] Weight in lbs Pre/Post Dialysis Refused Weight 262.332797020778 BP Diastolic BP Location Tested BP Systolic BP Type 83 L arm 135 sitting Fetus Heart Rate Present Fetus Movement Comments Flowsheet Date 05/24/2025 Anthony Score Blood Edema Fundus Height Fundus Units Glucose Ketones Leukocytes Nitrite Labor Signs Protein Cervic Dilation Cervic Effacement Cervic Station Type Weight in lbs Pre/Post Dialysis Refused Weight 260.142329670018 BP Diastolic BP Location Tested BP Systolic [...]
--- OUTSIDE RECORDS SUMMARY | 2025-05-25 17:06 | XMS_ITS | Continuity of Care Document ---
Author Organization [facility] Address [address] [place] [address] Care Team Providers Care Yardmaster Name Role Phone CASSIE SANTAMARIA Primary Care [...] recorde d. Surgeries None recorde d. Imaging non-str ess test 2024 [facility] [address], [facility] [address], [address], [place], [address], 05/24/2025 10:36:36 Medication Orders None recorde d. Patient TargetsNo targets recorded. Patient InstructionsNo instructions recorded. Reason for Referral None Reported. Results Created Date Observation Date Name Description Value Unit Range Abnormal Flag Note LastModifiedBy Organization Detail LastModifiedTime 12/30/19 25 12/29/2024 [UNIT Y] ANEUP LOIDY NIPT fraction 5.8% normal Not Available Pete Corley[address], [place], [address], 12/29/2024 05:20:42 12/30/19 25 12/29/2024 [UNIT Y] ANEUP LOIDY NIPT 22Q11.2 microdeletio n LOW RISK <1 in 10,000 normal Not Available Alysia barajas [address], [place], [address], 12/29/2024 05:20:42 12/30/19 25 12/29/2024 [UNIT Y] ANEUP LOIDY NIPT sex chromosome aneuploidy NOT DETECT ED normal Not Available [facility] [address], [place], [address], 12/29/2024 05:20:42 12/30/19 25 12/29/2024 [UNIT Y] ANEUP LOIDY NIPT monosomy X LOW RISK <1 in 10,000 normal Not Available [facility] [address], [place], [address], 12/29/2024 05:20:42 12/30/19 25 12/29/2024 [UNIT Y] ANEUP LOIDY NIPT trisomy 13 LOW RISK <1 in 10,000 normal Not Available [facility] [address], [place], [address], 12/29/2024 05:20:42 12/30/19 25 12/29/2024 [UNIT Y] ANEUP LOIDY NIPT trisomy 18 LOW RISK <1 in 10,000 normal Not Available [facility] [address], [place], [address], 12/29/2024 05:20:42 12/30/19 25 12/29/2024 [UNIT Y] ANEUP LOIDY NIPT trisomy 21 LOW RISK <1 in 10,000 normal Not Available [facility] [address], [place], [address], 12/29/2024 05:20:42 12/30/19 25 12/29/2024 [UNIT Y] ANEUP LOIDY NIPT sex FEMALE normal Not Available [facility] [address], [place], [address], 12/29/2024 05:20:42 12/30/19 25 12/29/2024 [UNIT Y] ANEUP LOIDY NIPT gestation SINGLE TON normal Not Available [facility] [address], [place], [address], 12/29/2024 05:20:42 12/30/19 25 12/29/2024 [UNIT Y] ANEUP SATINDERIDKathy NIPT for detailed report, see pdf See PDF normal Not Available [facility] [address], [place], [address], 12/29/2024 05:20:42 12/25/19 25 12/24/2024 CULTU RE: URINE result report SEE RESULT S BELOW Test: Cultu re: Urine Speci men Sourc e: Urine - Clean Catch Speci men Type: Urine Speci men Date: 2024 1555 Resul t Date: 025 0608 Resul t Statu s: Final resul t Abnor mal: No Resul ting Lab: [facility] [address] [facility] [address] Tel: CULTU RE ----- ----- ----- --- No growt h in 1 day (dete ction level of 10,00 0 colon ies / ml.) Not Available [facility] (Lab) [address] [facility], [place], [address], 12/26/2024 07:11:49 12/25/19 25 12/24/2024 drug scree n, urine Amphetamines : negati ve Not Available [facility] [address], [place], [address], 12/24/2024 15:17:16 12/25/19 25 12/24/2024 drug scree n, urine Cannabinoids : negati ve Not Available [facility] [address], [place], [address], 12/24/2024 15:17:16 12/25/19 25 12/24/2024 drug scree n, urine Cocaine: negati ve Not Available [facility] [address], [place], [address], 12/24/2024 15:17:16 12/25/19 25 12/24/2024 drug scree n, urine Opiates: negati ve Not Available [facility] [address], [place], [address], 12/24/2024 15:17:16 12/25/19 25 12/24/2024 drug scree n, urine Phenocyclidi ne: negati ve Not Available [facility] [address], [place], [address], 12/24/2024 15:17:16 12/25/19 25 12/24/2024 drug scree n, urine Barbiturates : negati ve Not Available [facility] [address], [place], [address], 12/24/2024 15:17:16 12/25/19 25 12/24/2024 drug scree n, urine Benzodiazepi abel: negati ve Not Available [facility] [address], [place], [address], 12/24/2024 15:17:16 12/25/19 25 12/24/2024 drug scree n, urine Ethanol: negati ve Not Available [facility] [address], [place], [address], 12/24/2024 15:17:16 12/25/19 25 12/24/2024 drug scree n, urine Hallucinogen s: negati ve Not Available [facility] [address], [place], [address], 12/24/2024 15:17:16 12/25/19 25 12/24/2024 drug scree n, urine Inhalants: negati ve Not Available [facility] [address], [place], [address], 12/24/2024 15:17:16 12/25/19 25 12/24/2024 drug scree n, urine Anabolic Steroids: negati ve Not Available [facility] [address], [place], [address], 12/24/2024 15:17:16 12/25/19 25 12/24/2024 drug scree n, urine Other: negati ve Not Available [facility] [address], [place], [address], 12/24/2024 15:17:16 03/15/20 25 03/15/2025 CMP/C BC/UR IC ACID WBC 11.2 10'3/ uL 3.5-10 .5 high Not Available [facility] (Lab) [address], [place], [address], 03/16/2025 07:01:11 03/15/20 25 03/15/2025 CMP/C BC/UR IC ACID RBC 4.43 10'6/ uL (based on docume nted legal sex) 3.80-5 .20 Not Available [facility] (Lab) [address], [place], [address], 03/16/2025 07:01:11 03/15/20 25 03/15/2025 CMP/C BC/UR IC ACID HGB 9.7 g/dL (based on docume nted legal sex) 11.6-1 5.4 low Not Available [facility] (Lab) [address], [place], [address], 03/16/2025 07:01:11 03/15/20 25 03/15/2025 CMP/C BC/UR IC ACID HCT 31.2 % (based on docume nted legal sex) 34.0-4 5.0 low Not Available [facility] (Lab) [address] [place], [address], 03/16/2025 07:01:11 03/15/20 25 03/15/2025 CMP/C BC/UR IC ACID MCV 70.4 fL 80.0-9 9.0 low Not Available [facility] (Lab) [address] [place], [address], 03/16/2025 07:01:11 03/15/2003/15/2025 CMP/C BC/UR IC ACID MCH 21.9 pg 27.0-3 4.0 low Not Available [facility] (Lab) [address] [facility], [place], [address], 03/16/2025 07:01:11 03/15/20 25 03/15/2025 CMP/C BC/UR IC ACID MCHC 31.1 g/dL 32.0-3 5.5 low Not Available [facility] (Lab) [address] [facility], [place], [address], 03/16/2025 07:01:11 03/15/2003/15/2025 CMP/C BC/UR IC ACID RDW 17.6 % 11.0-1 5.0 high Not Available [facility] (Lab) [address] [facility], [place], [address], 03/16/2025 07:01:11 03/15/20 25 03/15/2025 CMP/C BC/UR IC ACID plt 250 10'3/ uL 150-40 0 Not Available [facility] (Lab) [address] [facility], [place], [address], 03/16/2025 07:01:11 03/15/2003/15/2025 CMP/C BC/UR IC ACID MPV 11.0 fL 8.8-12 .1 Not Available [facility] (Lab) [address] [facility], [place], [address], 03/16/2025 07:01:11 03/15/20 25 03/15/2025 CMP/C BC/UR IC ACID NRBC's 0.0 % 0.0 Not Available [facility] (Lab) [address] [place], [address], 03/16/2025 07:01:11 03/15/20 25 03/15/2025 CMP/C BC/UR IC ACID absolute NRBCs 0.0 10'3/ uL no refere nce range establ ished Not Available [facility] (Lab) [address] [place], [address], 03/16/2025 07:01:11 03/15/20 25 03/15/2025 CMP/C BC/UR IC ACID neutrophils 73.8 % 34.0-7 3.0 high Not Available [facility] (Lab) [address] [place], [address], 03/16/2025 07:01:11 03/15/20 25 03/15/2025 CMP/C BC/UR IC ACID lymphocytes 18.8 % 15.0-5 0.0 Not Available [facility] (Lab) [address] [facility], [place], [address], 03/16/2025 07:01:11 03/15/20 25 03/15/2025 CMP/C BC/UR IC ACID monocytes 5.4 % 1.0-15 .0 Not Available [facility] (Lab) [address] [facility], [place], [address], 03/16/2025 07:01:11 03/15/20 25 03/15/2025 CMP/C BC/UR IC ACID eosinophils 0.8 % 0.0-8. 0 Not Available [facility] (Lab) [address] [place], [address], 03/16/2025 07:01:11 03/15/20 25 03/15/2025 CMP/C BC/UR IC ACID basophils 0.3 % 0.0-2. 0 Not Available [facility] (Lab) [address] [place], [address], 03/16/2025 07:01:11 03/15/20 25 03/15/2025 CMP/C BC/UR [...] separ ately if prese nt. Not Available [facility] (Lab) [address] [facility], [place], [address], 03/16/2025 07:01:11 03/15/20 25 03/15/2025 CMP/C BC/UR IC ACID absolute neutrophils 8.3 10'3/ uL 1.5-8. 0 high Not Available [facility] (Lab) [address] [facility], [place], [address], 03/16/2025 07:01:11 03/15/20 25 03/15/2025 CMP/C BC/UR IC ACID absolute lymphocytes 2.1 10'3/ uL 1.0-4. 0 Not Available [facility] (Lab) [address] [facility], [place], [address], 03/16/2025 07:01:11 03/15/20 25 03/15/2025 CMP/C BC/UR IC ACID absolute monocytes 0.6 10'3/ uL 0.2-1. 0 Not Available [facility] (Lab) [address] [facility], [place], [address], 03/16/2025 07:01:11 03/15/20 25 03/15/2025 CMP/C BC/UR IC ACID absolute eosinophils 0.1 10'3/ uL 0.0-0. 6 Not Available [facility] (Lab) [address] [facility], [place], [address], 03/16/2025 07:01:11 03/15/20 25 03/15/2025 CMP/C BC/UR IC ACID absolute basophils 0.0 10'3/ uL 0.0-0. 3 Not Available [facility] (Lab) [address] [place], [address], 03/16/2025 07:01:11 03/15/20 25 03/15/2025 CMP/C BC/UR IC ACID absolute immature granulocytes 0.1 10'3/ uL 0.00-0 .10 Refer ence range s for nonbi nary/ inter sex or unspe cifie d gende r patie nts have not been estab lishe d. Plecrystal e refer to the [facility] table for range s estab lishe d for cisge nder patie nts and evalu ate in the clini carlos kapil xt of the indiv idual patie nt: https ://rajni casanova book. nm.or g/gen derx Not Available [facility] (Lab) [address], [place], [address], 03/16/2025 07:01:11 03/15/2003/15/2025 CMP/C BC/UR IC ACID sodium 137 mmol/ L 133-14 6 Not Available [facility] (Lab) [address] [place], [address], 03/16/2025 07:01:11 03/15/20 25 03/15/2025 CMP/C BC/UR IC ACID potassium 4.0 mmol/ L 3.5-5. 1 Not Available [facility] (Lab) [address], [place], [address], 03/16/2025 07:01:11 03/15/20 25 03/15/2025 CMP/C BC/UR IC ACID chloride 104 mmol/ L 98-107 Not Available [facility] (Lab) [address] [place], [address], 03/16/2025 07:01:11 03/15/20 25 03/15/2025 CMP/C BC/UR IC ACID carbon dioxide 24 mmol/ L 21-31 Not Available [facility] (Lab) [address] [place], [address], 03/16/2025 07:01:11 03/15/20 25 03/15/2025 CMP/C BC/UR IC ACID anion gap 9 mmol/ L 4-13 Not Available [facility] (Lab) [address], [place], [address], 03/16/2025 07:01:11 03/15/20 25 03/15/2025 CMP/C BC/UR IC ACID blood urea nitrogen 4 mg/dL 7-25 low Not Available [facility] (Lab) [address] [facility], [place], [address], 03/16/2025 07:01:11 03/15/20 25 03/15/2025 CMP/C BC/UR IC ACID creatinine 0.45 mg/dL 0.60-1 .30 low Not Available [facility] (Lab) [address] [facility], [place], [address], 03/16/2025 07:01:11 03/15/20 25 03/15/2025 CMP/C BC/UR IC ACID egfrcr (CKD-epi 2020) >90 mL/mi n/1.7 3_m2 >=60 Not Available [facility] (Lab) [address] [facility], [place], [address], 03/16/2025 07:01:11 03/15/20 25 03/15/2025 CMP/C BC/UR IC ACID calcium 8.6 mg/dL 8.3-10 .5 Not Available [facility] (Lab) [address] [facility], [place], [address], 03/16/2025 07:01:11 03/15/2003/15/2025 CMP/C BC/UR IC ACID glucose 81 mg/dL 70-100 Not Available [facility] (Lab) [address] [facility], [place], [address], 03/16/2025 07:01:11 03/15/2003/15/2025 CMP/C BC/UR IC ACID protein, total 6.4 g/dL 6.4-8. 3 Not Available [facility] (Lab) [address] [place], [address], 03/16/2025 07:01:11 03/15/2003/15/2025 CMP/C BC/UR IC ACID albumin 3.6 g/dL 3.5-5. 0 Not Available [facility] (Lab) [address] [place], [address], 03/16/2025 07:01:11 03/15/20 25 03/15/2025 CMP/C BC/UR IC ACID ALT 5 units /L 9-43 low Not Available [facility] (Lab) [address] [facility], [place], [address], 03/16/2025 07:01:11 03/15/2003/15/2025 CMP/C BC/UR IC ACID alkaline phosphatase 72 units /L 34-104 Not Available [facility] (Lab) [address] [facility], [place], [address], 03/16/2025 07:01:11 03/15/20 25 03/15/2025 CMP/C BC/UR IC ACID AST 11 units /L 13-39 low Not Available [facility] (Lab) [address] [facility], [place], [address], 03/16/2025 07:01:11 03/15/2003/15/2025 CMP/C BC/UR IC ACID bilirubin, total 0.4 mg/dL 0.2-1. 2 Not Available [facility] (Lab) [address] [place], [address], 03/16/2025 07:01:11 03/15/2003/15/2025 CMP/C BC/UR IC ACID uric acid 3.8 mg/dL 2.3-6. 6 Not Available [facility] (Lab) [address] [place], [address], 03/16/2025 07:01:11 03/15/20 25 03/15/2025 RBEA TIN / IRON / TRANS BREA N / TIBC iron 31 ug/dL 40-170 low Not Available [facility] (Lab) [address] [place], [address], 03/16/2025 07:01:11 03/15/20 25 03/15/2025 BREA TIN / IRON / TRANS BREA N / TIBC transferrin 440 mg/dL 200-36 0 high Not Available [facility] (Lab) [address] [facility], [place], [address], 03/16/2025 07:01:11 03/15/20 25 03/15/2025 BREA TIN / IRON / TRANS BREA N / TIBC ferritin 4.4 NG/mL 8.0-25 2.0 low Not Available [facility] (Lab) [address] [facility], [place], [address], 03/16/2025 07:01:11 03/15/20 25 03/15/2025 BREA TIN / IRON / TRANS BREA N / TIBC TIBC 616 ug/dL 250-45 0 high Not Available [facility] (Lab) [address] [facility], [place], [address], 03/16/2025 07:01:11 03/15/20 25 03/15/2025 BREA TIN / IRON / TRANS BREA N / TIBC iron saturation 5 % 20-55 low Not Available [facility] (Lab) [address] [facility], [place], [address], 03/16/2025 07:01:11 04/13/20 25 04/13/2025 HIV 1/2 ANTIG EN/AN TIBOD Y, REFLE X CONFI RMATI ON HIV antigen/anti body Nonrea ctive nonrea ctive HIV-1 antig en and HIV-1 /HIV- 2 antib odies were not detec esperanza. No labor atory evide nce of HIV infec tion. Not Available [facility] (Lab) [address] [facility], [place], [address], 04/14/2025 20:15:12 04/13/20 25 04/13/2025 GTT - GESTA MARYANNE L SCREE N, ACOG OB glucose, 1 hour screen 186 mg/dL 70-135 high Not Available [facility] (Lab) [address] [facility] [facility], [place], [address], 04/14/2025 20:15:12 04/13/20 25 04/13/2025 TSH TSH 1.12 uIU/m L 0.30-5 .33 Not Available [facility] (Lab) [address] [facility], [place], [address], 04/14/2025 20:15:12 04/13/20 25 04/13/2025 HEMAT OCRIT (HCT) HCT 33.6 % (based on docume nted legal sex) 34.0-4 5.0 low Not Available [facility] (Lab) [address] [facility], [place], [address], 04/14/2025 20:15:13 04/13/20 25 04/13/2025 HEMOG LOBIN (HGB) HGB 10.0 g/dL (based on docume nted legal sex) 11.6-1 5.4 low Not Available [facility] (Lab) [address] [facility], [place], [address], 04/14/2025 20:15:13 04/13/20 25 04/13/2025 RPR SCREE N, REFLE X TITER /CONF IRMAT ION RPR qualitative Nonrea ctive nonrea ctive Not Available [facility] (Lab) [address] [facility], [place], [address], 04/14/2025 20:15:13 02/16/20 25 02/15/2025 US, obste tric, 2nd or 3rd trime ster No observ ation record ed. [email or web address] [facility] [address], [place], [address], 02/15/2025 18:09:52 02/16/20 25 02/15/2025 US, obste tric, 2nd or 3rd trime ster No observ ation record ed. [email or web address] [address], [place], [address], 02/17/2025 08:11:36 03/15/20 25 03/15/2025 US, obste tric, follo w-up No observ ation record ed. [email or web address] [facility] [address], [place], [address], 03/15/2025 18:15:11 03/15/20 25 03/15/2025 US, obste tric, follo w-up No observ ation record ed. [email or web address] [address], [place], [address], 03/15/2025 18:40:17 05/24/2005/24/2025 US, obste tric, follo w-up No observ ation [facility] ed. [facility] [address], [place], [address], 05/24/2025 13:39:01 05/24/2005/24/2025 , obste tric, bioph ysica l profi le + non-s tress test No observ ation record ed. [facility] [address], [place], [address], 05/24/2025 13:39:11 05/24/2005/24/2025 US, obste tric, follo w-up No observ ation record ed. [email or web address], [place], [address], 05/24/2025 09:56:36 05/24/2005/24/2025 non-s tress test No observ ation record ed. [email or web address] [facility] [address], [place], [address], 05/24/2025 10:33:51 05/24/20 non-s tress test No observ ation record ed. [email or web address] [facility] [address], [place], [address], 05/24/2025 10:36:04 Result Notes None recorded. Problems Name Problem SNOMED Code Status Onset Date Resolution Date Notes Provider Name and Address Organization Details Recorded Time Obesity 881916884 Completed 2xwk NST's at 32WKS Elly Somers [facility], [facility] 5 13:40:47 Migraine 54948676 Completed fioricet and neuro consult Elly Somers [facility] 5 13:40:47 Gestatio nal diabetes mellitus 62553313 Completed 32wks 2xwk NSTs, BS QID, Wkly OB appts & serial growth u/s Elly Somers [facility], [facility] 5 13:40:47 Hyperten sive disorder 80209654 Completed CHTN delivery 38wks Elly Somers [facility], [facility] 5 13:40:47 Hypothyr oidism 73842722 Completed 100mcg levo Silvaaney Karina [facility], [facility] 4 13:47:29 Obesity 335527395 Completed pre-preg BMI 38 Master Collins [facility], [facility] 4 13:47:29 Large for gestatio n age fetus 182900304 Completed EFW 91% at 19 weeks, 96% at 23 weeks, 94% at 27 weeks, serial growth, Master Collins [facility], [facility] 4 13:47:29 Past pregnanc y history of section 816550845 Completed desires [facility], 11/23 at 39w Master Collins [facility], [facility] 4 13:47:29 Hypothyr oidism 78684694 Active 100mcg levo Britaney Karina null, [facility] 4 13:47:29 Large for gestatio n age fetus 683259161 Completed 12/02/2023 EFW 91% at 19 weeks, 96% at 23 weeks, 94% at 27 weeks, serial growth, ALYSA DOLAN MD [address], [place], [address], [facility] 4 16:22:36 Pregnanc y 73842604 Completed 201907/18/2020 Elly Somers null, [facility] 5 15:18:19 Polyhydr amnios 86581375 Completed 06/12- .6 resolved Elly Somers null, [facility] 5 13:40:47 Pregnanc y 32399945 Completed 202211/28/2023 Elly Somers null, [facility] 5 15:18:19 Gestatio nal diabetes mellitus 22811665 Completed 2023 32wk antenata l testing, 2hr pp gtt. 1500mg Metformi n started 08/29/23- increase d to 1500mg 10/01/23 Master Collins null, [facility] 4 13:47:29 Gestatio nal diabetes mellitus 24066230 Completed 202312/02/2023 32wk antenata l testing, 2hr pp gtt. 1500mg Metformi n started 08/29/23- increase d to 1500mg 10/01/23 ALYSA DOLAN MD [address], [place], [address], [facility] 4 16:22:58 Attentio n deficit hyperact ivity disorder 559100464 Active 2024 Elly jiménez, [facility] 5 14:28:34 Hashimot o thyroidi tis 38532176 Active 2024 labs with pn panel and 28 week levothyr oxine 88 mcg daily Estrella Gutiérrez CNM [address], [place], [address], [facility] 5 15:32:05 Past pregnanc y history of section 766616778 Active 2024 x2, plan for repeat ALYSA DOLAN MD [address], [place], [address], [facility] 5 15:43:06 Obesity 060720985 Active 2024 BMI 41 2 bASA daily 34 week antenata l testing ALYSA DOLAN MD [address], [place], [address], [facility] 5 12:44:59 Polycyst ic ovary syndrome 240189352 Active 2024 ALYSA DOLAN MD [address], [place], [address], [facility] 5 16:55:48 Mixed anxiety and depressi ve disorder 991692196 Active 2024 fluoxeti ne 20 mg daily Estrella Gutiérrez CNM [address], [place], [address], [facility] 15:32:25 Migraine 17963241 Active 2024 Estrella Gutiérrez CNM [address], [place], [address], [facility] 5 16:27:31 Pregnanc y 07025664 Active 2024 Elly jiménez, [facility] 5 15:18:19 Past pregnanc y history of section 977436611 Active 2024 x2, plan for repeat ALYSA DOLAN MD [address], [place], [address], [facility] 15:43:06 Hashimot o thyroidi tis 11613554 Active 2024 labs with pn panel and 28 week levothyr oxine 88 mcg daily Estrella Gutiérrez CNM [address], [place], [address], [facility] 15:32:05 Mixed anxiety and depressi ve disorder 623661781 Active 2024 fluoxeti ne 20 mg daily Estrella Gutiérrez CNM [address], [place], [address], [facility] 15:32:25 Polycyst ic ovary syndrome 182001656 Active 2024 ALYSA DOLAN MD [address], [place], [address], [facility] 16:55:48 Obesity 574818012 Active 2024 BMI 41 2 bASA daily 34 week antenata l testing ALYSA DOLAN MD [address], [place], [address], [facility] 12:44:59 Migraine 66414073 Active 2024 Estrella Gutiérrez CNM [address], [place], [address], [facility] 16:27:31 Steriliz ation requeste d [id number] Active 2024 tubal with c section, papers signed at 32 weeks ALYSA DOLAN MD [address], [place], [address], [facility] 11:16:19 Problem Notes None recorded. Procedures Surgical History Date Name Laterality Status Provider Name and Address Organization Details Recorded Time 4 Date of Last Pap Smear completed Elly Somers [facility] 11/24/2024 14:29:50 4 Caesarean Section completed Kandy Beverly [facility] 05/25/2024 14:06:20 3 IUD Removal completed Andree Brooks [facility] [address], [place], [address], [facility] 11/19/2022 14:07:03 2 IUD Insertion completed Andree Brooks [facility] [address], [place], [address], [facility] 07/04/2022 15:36:20 0 Caesarean Section completed Adrianne Youngblood [facility] 11/22/2020 14:18:54 0 NST completed Aisha Zepeda MD [address], [place], [address], [facility] 07/03/2020 12:21:36 7 Dilation and Curettage completed Spring Flores [facility] 12/14/2019 13:44:04 Imaging Results None [...] completed Not Available Not Available Not Available Nurtec ODT 75 mg disintegrat ing tablet 1 [...] Updated DateTime 05/24/2025 166.37 cm 42.9 kg/m2 331571.2 g 135/83 mm[Hg] Stephanie Yogesh [facility] 05/24/2025 10:32:08 Date Recorded Body height Body mass index (BMI) Body weight Systolic And Diastolic Provider Name and Address Organization Details Last Updated DateTime 05/24/2025 166.37 cm 42.6 kg/m2 487271.02 g 135/83 mm[Hg] Yoana Maddox [facility] 05/24/2025 10:19:13 Social History Question Answer Notes LastModified by Organizat ion Details LastModified Time Tobacco Smoking Status Former Smoker Althea Eaton tino, [facility] 08/05/2023 12:09:42 Do You Have An Advance Directive? No Information not available 05/23/2022 If You Are , What Was Your Level Of Alcohol Consumption Prior To ? Occasional [email or web address] Information not available 11/26/2024 Are You Blind [...] Or The Highest Degree You Have Received? [id number] Information not available 11/22/2020 When Did You Quit Smoking? 1-5yearssincel melanie [email or web address] Information not available 03/15/2025 Are There Any Guns Present In Your Home? No Information not available 11/22/2020 What Was The Date Of Your Most Recent Tobacco Screening? 12/24/2024 [email or web address] Information not available 12/24/2024 What Is Your Current Pack Years? 10packyears [email or web address] Information not available 03/15/2025 Do You Use Protection During Sex? No Information not available 11/22/2020 Do You Use Your Seat Belt Or Car Seat Routinely? Yes Information not available 11/22/2020 Are You Sexually Active? Yes [email or web address] Information not available 03/15/2025 Do You Have Smoke And Carbon Monoxide Detectors In Your Home? Yes Information not available 11/22/2020 How Much Tobacco Do You Smoke? No Information not available 11/22/2020 Do You Use Sunscreen Routinely? Yes Information not available 11/22/2020 Have You Used IV Drugs? No Information not available 05/23/2022 Do You Have Difficulty Walking Or Climbing Stairs? No [email or web address] Information not available 08/05/2023 Sex: Unknown Functional [...] used smokeless tobacco? Never used smokeless tobacco [email or web address] Information not available 08/05/2023 Are you currently employed? Yes [email or web address] Information not available 03/15/2025 Are you able to walk independently without assistance or assistive devices? [email or web address] Information not available 11/08/2020 Are you able to care for yourself independently? 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 No [email or web address] Information not available 08/05/2023 Do you or have you ever used e-cigarettes or vape? Never used electronic cigarettes [email or web address] Information not available 08/05/2023 What is your exercise level? Occasional walking Information not available 12/16/2019 Mental Status Question Answer Note LastModified by Organization D etails LastModified Time Do you feel stressed (tense, restless, nervous, or anxious, or unable to sleep at night)? [id number] Information not available 11/22/2020 Family History Relationship Description Onset Age of this Age Resolved Age Notes LastModified by Organization Details LastModified Time Maternal Grandfather Diabetes mellitus [email or web address] Not available 2022 15:52:44 Maternal Grandfather Hypertensive disorder [email or web address] Not available 2022 15:52:44 Maternal Grandmother Family history of Cardiovascul ar disease Not available 03/15 15:27:24 Maternal Grandmother Hypertensive disorder [email or web address] Not available 2023 14:05:51 Maternal Grandmother Malignant neoplasm of breast 60 [email or web address] Not available 2024 15:27:24 Maternal Grandmother Malignant neoplasm of breast [email or web address] Not available 2024 15:27:24 Maternal Aunt Malignant neoplasm of breast 50 Not available 2024 15:27:24 Maternal Aunt Malignant neoplasm of breast 50 [email or web address] Not available 2024 15:27:24 Maternal Aunt Malignant neoplasm of breast Not available 2024 15:27:24 Medical History Condition Response Allergies (Food, seasonal, environmental ) N Other N Breast Cancer N Blood Transfusion N Drug/Latex Allergies/Reactions N Dermatologic Disorders N Lung Disease N Defects or Inherited Disease N Breast Problem N Gestational Diabetes Y Hematologic disorders N Anesthesia Complications N History of STI N Deep Vein Thrombosis N Polycystic ovary syndrome Y Anxiety Disorder Y Autoimmune disease N Arthritis N Polyps N Infertility N Acid Reflux (GERD) N History of abnormal pap Y Cancer N Varicosities N Stroke N Neurologic/Epilepsy Y Endometriosis N High Cholesterol N Fibromyalgia N Headaches Y Kidney Disease N Heart Problems N Thyroid [...] ICD10 Code Diagnosis IMO Codes Diagnosis Note [id number] ALYSA DOLAN MD [facility] [address] [address] 04/27/2025 14:10:20 04/27/2025 14:55:20 Sterilization requested 750737385 Z30.2 64616960 Obesity 073643787 E66.9 9294220796 Mixed anxi ety and depressive disorder 388743845 F32.A F41.9 351441 Cony thyroiditis 21 682709 E06.3 61471 Past pregn david history of section 445470632 Z98.365 5613856 Gestation period, 30 weeks 45676599 Z3A.30 0943140 [id number] ALYSA DOLAN MD [facility] [address],[place] [address] 05/13/2025 09:54:06 05/13/2025 10:35:14 Past history of section 477382086 Z98.149 8218471 Cony thyroiditis 21 065083 E06.3 97026 Obesity 369104992 E66.9 7346491533 Gestation period, 32 weeks 2307663 Z3A.32 8632710 [id number] ALYSA DOLAN MD [facility] [address],[place] [address] 05/24/2025 09:27:05 05/24/2025 09:56:50 Obesity 171231804 O99.210 O24.410 773363 [id number] MD Sheron GONZALEZ [address],[place] [address] 05/24/2025 09:29:31 05/24/2025 10:36:36 Maternal obesity complicating , childbirth and the puerperium, antepartum 9910973041 07 O99.210 4029535369 [id number] ALYSA DOLAN MD [facility] [address],[place] [address] 05/24/2025 09:29:45 05/24/2025 11:45:00 Sterilization requested 132845803 Z30.2 80627516 Mixed anxi ety and depressive disorder 706835020 F32.A F41.9 613542 Cony thyroiditis 21 202848 E06.3 93493 Past pregn david history of section 504232899 Z98.678 2517391 Gestation period, 34 weeks 79556781 Z3A.34 9844593 Health Concerns Section Related Observation LastModified by Organization Detai ls LastModified Time None Recorded Concern Status LastModified by Organization Details LastModified Time None Recorded Payers Encounter Date Sequence Insurance Name Policy Number Policy Linder Covered Member ID Linder Member ID Guarantor Name 05/24/2025 1 [facility] [id number] Keshav Ervin [id number] Yoana Ervin 05/24/2025 2 [place] [facility] Yoana Ervin [id number] Yoana Ervin Notes Date Note Type Note Provider Name and Address Organization Details Recorded Time 05/24/2025 text/html Generic HPI TemplateReported by Patient ALYSA DOLAN MD [address], [place], [address], [place] [facility] 05/24/2025 11:43:25 OBGyn Episode Ob Episode Information Episode Created Date Number of Fetuses Patient Bloodtype Patient rh Status Prepregnancy Weight lbs Domestic Partner Domestic Partner Phone Father Name Video Producer Status 12/25/19 25 1 O Positive 253 Nolan Ervin OPEN Fetus Data First Name Last Name Admitted to NICU Weight (g) Sex Living Outcome Pediatric Complications Fetus ID Race Codes Race Delivery Type [id number] Problems Problem Notes hx LGA Problem Name Start Date End Date Resolution Snomed Code Not e Polycystic ovary syndrome 12/24/2024 [id number] Migraine 12/24/2024 71168203 Sterilization requested 01/18/2025 029043093 tubal with c se ction, papers signed at 32 weeks Past history of section 12/24/2024 766136989 x2, plan for re peat Mixed anxiety and depressive disorder 12/24/2024 850175341 fluoxeti ne 20 mg daily Obesity 12/24/2024 240067505 BMI 412 b ASA daily34 week testing Cony thyroiditis 12/24/2024 46814655 labs with pn pa reji and 28 weeklevothyroxine 88 mcg daily Morteza Calculation Initial Morteza Date Initial Exam Date Initial Exam Provider Initial Ultrasound Date Last Menstrual Period Date Ultra Sound Weeks Gestation 07/05/2025 11/24/2024 [email or web address] 10/27/2024 09/22/2024 0 Eighteen To Twenty Week [...] Weight in lbs Pre/Post Dialysis Refused Weight 255.530882941425 BP Diastolic BP Location Tested BP Systolic [...] Weight in lbs Pre/Post Dialysis Refused Weight 255.026969952306 BP Diastolic BP Location Tested BP Systolic [...] Weight in lbs Pre/Post Dialysis Refused Weight 254.727712192642 BP Diastolic BP Location Tested BP Systolic [...] Weight in lbs Pre/Post Dialysis Refused Weight 254.959355143793 BP Diastolic BP Location Tested BP Systolic [...] Weight in lbs Pre/Post Dialysis Refused Weight 257.540382593126 BP Diastolic BP Location Tested BP Systolic [...] Type Weight in lbs Pre/Post Dialysis Refused 255.081096108967 BP Diastolic BP Location Tested BP Systolic [...] Weight in lbs Pre/Post Dialysis Refused Weight 255.116784802317 BP Diastolic BP Location Tested BP Systolic [...] Weight in lbs Pre/Post Dialysis Refused Weight 262.534672605733 BP Diastolic BP Location Tested BP Systolic BP Type 83 L arm 135 sitting Fetus Heart Rate Present Fetus Movement Comments Flowsheet Date 05/24/2025 Anthony Score Blood Edema Fundus Height Fundus Units Glucose Ketones Leukocytes Nitrite Labor Signs Protein Cervic Dilation Cervic Effacement Cervic Station Type Weight in lbs Pre/Post Dialysis Refused Weight 260.091667288089 BP Diastolic BP Location Tested BP Systolic [...]
== END 2025-05-25 15:40 | disposition home or self-care (01) ==
PROVIDERS: Emergency Provider Nurse Practitioner; PCP Obstetrics & Gynecology
DX: O99.513 Diseases of the respiratory system complicating pregnancy, third trimester (principal); J06.9 Acute upper respiratory infection, unspecified; Z3A.32 32 weeks gestation of pregnancy; Z20.822 Contact with and (suspected) exposure to COVID-19; O24.419 Gestational diabetes mellitus in pregnancy, unspecified control; O16.3 Unspecified maternal hypertension, third trimester; Z87.891 Personal history of nicotine dependence
CPT/HCPCS: 87081; 87426; 87804; 87880; 99213; G0463

== ENCOUNTER 2025-06-21 10:57 | Outpatient (CLI) | payer OTHER, MEDICAID, SELFPAY ==
[2025-06-21 12:02] LABS: Hematocrit 34.9 % (37.0-47.0); Hemoglobin 10.8 g/dL (12.0-15.0); Mean Corpuscular HGB Conc 30.9 g/dl (32-36); Mean Corpuscular Hemoglobin 22.8 pg (26-34); Mean Corpuscular Volume 73.8 fl (80-100); Platelet Count Result 206 k/mm3 (150-375); Red Blood Count 4.73 M/mm3 (4.2-5.4); White Blood Count 10.3 K/mm3 (4.5-10.0)
--- OUTSIDE RECORDS SUMMARY | 2025-06-21 12:44 | XMS_ITS | Clinical Summary ---
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 Gender Identity Female 11/20/2019 3:07 AM CDT [...] 05 Meningococcal Vaccine Aged Out 05/07/2010 No ejsus moon eligible based on patient's age to complete this topic HPV Vaccines Completed 09/01/2012, 07/29, 05/07/2010 Chlamydia Screening Females ages 16-24 Discontinued 11/08/2020 Meningococcal B Vaccine Aged Out No l onger eligible based on patient's age to complete this topic RSV Immunizations Under 20 Months Aged Out No longer eligible based on patient's age to complete this topic Insurance [facility] MEDICAID [facility] Care Teams Exhauster Relationship Specialty Start Date End Date Monet Torres MD [address] [place] [address] PCP - General FAMILY PRACTICE 07/19/19
--- OUTSIDE RECORDS SUMMARY | 2025-06-21 12:45 | XMS_ITS | Clinical Summary ---
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
[2025-06-21 12:53] LABS: Syphilis IgG/IgM Antibody Non-Reactive (Nonreactive)
== END 2025-06-21 10:58 | disposition home or self-care (01) ==
LOC: ANHLAB 10:59
PROVIDERS: PCP Obstetrics & Gynecology; Visit Provider Obstetrics & Gynecology
DX: Z01.812 Encounter for preprocedural laboratory examination (principal); Z30.2 Encounter for sterilization
CPT/HCPCS: 36415; 85027; 86593; 86850; 86900; 86901

== ENCOUNTER 2025-06-22 11:21 | Inpatient (IN) | payer OTHER, MEDICAID, SELFPAY ==
[2025-06-22] VITALS (31 sets, daily range): BP systolic 84–134; BP diastolic 46–73; PULSE 50–90; RESP 11–18; TEMP 36.3–36.8; O2SAT 91–100; BMI 42.9
[2025-06-22] MEDS: LACTATED RINGERS 1,000 ML 125 ML IV CONT ×2 (12:05→12:37)
[2025-06-22] MEDS: FAMOTIDINE 20 MG/2 ML VIAL IV PUSH (12:07)
[2025-06-22] MEDS: ceFAZolin 2 GM in SODIUM CHLORIDE 0.9% IV 50 ML 100 ML IVPB (12:07)
[2025-06-22] MEDS: ONDANSETRON INJ 4 MG/2 ML VIAL IV PUSH (12:07)
--- NOTE | 2025-06-22 12:10 | LDADM ---
This patient, Yoana Ervin, was admitted to Labor/Delivery/Recovery 119 on 06/22/25 at 11:21. Plans for section, pain management and were discussed with patient. Patient/family oriented to hospital policies and general routines including ID bracelet, bed and alarms, visiting hours, pain management, procedures, bathroom and other care routines, personal items, smoking policy, room service/diet and guest tray routines, security routines, and visiting hours. Patient/Family are encouraged to report perceived risks to care and to ask questions if they do not understand what they are told or what they should do. See OBIX for further documentation.
--- NOTE | 2025-06-22 12:51 | P.PNAN_ITS ---
Anes - Initial Pre Proc Eval Procedure: Operation Date: 06/22/25 13:30 Proposed Procedures p Repeat Section with Tubal Ligation - Juan Mcacrthy MD Date/Time: 06/22/25 12:51 Surgeon: Juan Mccarthy MD Pre Op Diagnosis: C Section Patient Data Age: 24 Gender: F Height: 1.65 m Weight: 117 kg Last Vital Signs Temp 36.4 C 06/22/25 12:00 Pulse 90 06/22/25 12:15 BP 113/73 06/22/25 12:15 Allergies Allergy/AdvReac Type Severity Reaction Status Date / Time No Known Allergies Allergy Verified 06/22/25 12:13 Home Medications ?Medication ?Instructions ?Recorded ?Confirmed ?Type fluoxetine 20 mg capsule 20 mg PO DAILY 03/22/2505/29 History 05/25/25 History albuterol sulfate 90 mcg/actuation 2 puff inhalation Q ID PRN 05/25/25 06/20/25 Rx aerosol inhaler shortness of breath or wheez ing #8.5 grams blood sugar diagnostic (Contour 05/25/25 05/25/25 His tory Plus Test Strip) blood-glucose meter (Contour Plus 05/25/25 05/25/25 H istory Blue Meter) fluticasone propionate 50 2 spray intranasal DAILY 14 days 05/25/25 06/20/25 Rx mcg/actuation nasal #15.8 mL spray,suspension (Flonase Allergy Relief) levothyroxine 88 mcg tablet 88 mcg 05/25/25 History insulin glargine 100 unit/mL 5 unit subcut QPM 5 06/20/25 History subcutaneous solution (Lantus U-100 Insulin) Patient hx anesthesia problems: other (panic attacks) Family hx anesthesia problems: none Results Review: All pre-operative results and documents have been reviewed as part of the pre- operative evaluation. [facility], [facility] Past Medical History Medical History Gestational diabetes and not yet delivered Obesity Hypertension Surgical History Surgical History History of section Family History Family History Other Unknown family medical history Social History Social History Smoking packs per day: 1 Smoking cigarettes per day: 20.0 Years smoked: 7 Smoking pack-years: 7.00 Smoking status: Former smoker Tobacco type: cigarettes Second hand tobacco smoke exposure: No Smoking end date: 07/28/19 Substance use: never Lack of Transportation: No Lack of Food: Never True Current Housing: I Have Housing Concerned About Future Housing: No Difficulty Paying Gas/Electric Bills: No Difficulty Paying for Meds: No Currently Unemployed: No Education: High School Diploma/GED Difficulty w/ Childcare or Family Care: No Gender identity (if verbalized by the patient): Female Spiritual care concerns: No Anes - Eval Final PreProcedure Day of Procedure 06/22/25 12:51 Patient weight: morbidly obese Heart: regular rate and rhythm Lungs: decreased breath sounds Airway: Mallampati scale class II Neurological: alert and oriented Last oral intake: >/= 8 hours ASA classification: III Emergent: no Anesthetic plan: proceed Anesthesia type and monitoring: regional spinal and standard monitoring Results Review: All pre-operative results and documents have been reviewed as part of the pre- operative evaluation. Informed Consent: The patient's anesthetic plan and its attendant risks and benefits were discussed with the patient/family/POA. Questions were solicited and answers provided to the satisfaction of the patient/family/POA.
--- NOTE | 2025-06-22 13:06 | PM.IMHP ---
H&P: HPI History of Present Illness Date/Time: 06/22/25 13:06 Chief Complaint: repeat c section and bilateral salpingectomy Narrative: Patient is a 24 year old at 38w1d who presents for repeat c section and bilateral salpingectomy. Her has been complicated by insulin dependent GDM, obesity, and chronic HTN controlled without medications. She has now completed her childbearing and would like to proceed with permanent sterilization. She understands this procedure is not reversible and permanent, and would like to proceed. Denies strong contractions, leakage of fluid or vaginal bleeding. Good movement. Denies abdominal pain, fever, chills, or dysuria. Review of Systems Review of Systems: All systems reviewed & are unremarkable except as noted in HPI and below PMFSH Past Medical History Medical History Gestational diabetes and not yet delivered Obesity Hypertension Surgical History Surgical History History of section Family History Family History Other Unknown family medical history Social History Social History Smoking packs per day: 1 Smoking cigarettes per day: 20.0 Years smoked: 7 Smoking pack-years: 7.00 Smoking status: Former smoker Tobacco type: cigarettes Second hand tobacco smoke exposure: No Smoking end date: 07/28/19 Substance use: never Lack of Transportation: No Lack of Food: Never True Current Housing: I Have Housing Concerned About Future Housing: No Difficulty Paying Gas/Electric Bills: No Difficulty Paying for Meds: No Currently Unemployed: No Education: High School Diploma/GED Difficulty w/ Childcare or Family Care: No Gender identity (if verbalized by the patient): Female Spiritual care concerns: No Meds Home Medications and Allergies Home Medications ?Medication ?Instructions ?Recorded ?Confirmed ?Type fluoxetine 20 mg capsule 20 mg PO DAILY 03/22/25 06/20/25 History 05/25/25 History albuterol sulfate 90 mcg/actuation 2 puff inhalation QID PRN 05/25/25 06/20/25 Rx aerosol inhaler shortness of breath or wheezing #8.5 grams blood sugar diagnostic (Contour 05/25/25 05/25/25 History Plus Test Strip) blood-glucose meter (Contour Plus 05/25/25 05/25/25 History Blue Meter) fluticasone propionate 50 2 spray intranasal DAILY 14 days 05/25/25 06/20/25 Rx mcg/actuation nasal #15.8 mL spray,suspension (Flonase Allergy Relief) levothyroxine 88 mcg tablet 88 mcg 05/25/25 History insulin glargine 100 unit/mL 5 unit subcut QPM 06/20/25 06/20/25 History subcutaneous solution (Lantus U-100 Insulin) Allergies Allergy/AdvReac Type Severity Reaction Status Date / Time No Known Allergies Allergy Verified 06/22/25 12:13 Vital Signs Vital Signs - 24 hr 06/22/25 12:00 06/22/25 12:06 06/22/25 12:15 Temperature 97.6 F Pulse Rate 77 90 Blood Pressure 84/46 L 113/73 Oxygen Delivery 06/22/25 12:47 Temperature Pulse Rate Blood Pressure Oxygen Delivery Room Air Exam Const: General: comfortable and no acute distress Eyes: General: appearance normal, both eyes and all related structures Resp: Effort & Inspection: normal respiratory effort Cardio: Rate: regular rate Rhythm: regular rhythm Skin: General skin exam: normal color Extrem: General: normal to inspection Psych: Mental Status: mental status grossly normal Affect: normal affect Assessment and Plan Assessment and plan (1) Gestational diabetes: Qualifiers: Gestational diabetes mellitus control: insulin-controlled Trimester: third trimester Qualified Code(s): O24.414 - Gestational diabetes mellitus in , insulin controlled Code(s): O24.419 - Gestational diabetes mellitus in , unspecified control Status: Acute Assessment and Plan: - well controlled on lantus 5u qHS - growth US wnl (2) History of section: Code(s): Z98.891 - History of uterine scar from previous surgery Status: Acute Assessment and Plan: - s/p c section x2, desires repeat (3) Chronic hypertension affecting : Code(s): O10.919 - Unspecified pre-existing hypertension complicating , unspecified trimester Status: Acute Assessment and Plan: - well controlled without medications - discussed recommendation for 38 week delivery due to increased risk of preeclampsia (4) Obesity affecting : Code(s): O99.210 - Obesity complicating , unspecified trimester Status: Acute (5) Admission for sterilization: Code(s): Z30.2 - Encounter for sterilization Status: Acute Assessment and Plan: - patient has completed childbearing and would like to proceed with permanent sterilization - risks benefits and alternatives discussed with the patient including that this procedure cannot be reversed - she voices understanding and would like to proceed with bilateral salpingectomy at time of c section - tubal consents signed
--- NOTE | 2025-06-22 13:19 | WPDHPUPDATE1 ---
History and Physical Update Update Date/Time: 06/22/25 13:19 History and Physical has been reviewed, including an updated exam of the patient. There are NO changes in the patient's condition. Risks, benefits, and alternatives have been discussed and questions answered. Patient agrees to proceed with procedure.
--- NOTE | 2025-06-22 14:08 | S_PTH ---
PATIENT: Yoana Ervin LOC: [facility] U#:[id number] AGE/SX: 24/F ROOM: 288 RE06/22/[address]: Juan Mccarthy MD : 2000 BED: 00 DIS: 06/23/2025 SPEC #: [id number] RECD: 06/27/25 08:14 STATUS: RENÉE REQ #: [id number] BERNARD: 06/22/25 14:[address]: Juan Mccarthy DEPT: [facility] Surgical RECD BY: Manju Hughes ENTERED: 06/27/25 08:15 SP TYPE: Surgical OTHR DR: Monet Torres MD Tissues: A - Fallopian Tube Bilateral Procedures: Gross and Microscopic Level 2 Hematoxylin and Eosin Stain
[2025-06-22] MEDS: OXYTOCIN 30 UNITS/NS 500 ML 30 UNITS/500 ML BAG 125 UNITS IV CONT (15:41)
[2025-06-22] MEDS: oxyCODONE HCL (*CRX) 5 MG TAB IR 10 MG PO (16:07)
[2025-06-22] MEDS: LIDOCAINE 5% PATCH 1 PATCH TRANSDERM (16:07)
--- NOTE | 2025-06-22 16:27 | W.PM.OBCSD ---
OB - Delivery Note Procedure Delivery date: 06/22/25 Pre-op diagnosis: Chronic Hypertension and Gestational Diabetes Post-op Diagnosis: Same Induction method: None Delivery monitor: External FHT Prior to decision for section, ACOG/SMFM labor guidelines were considered and discussed with the patient and staff. Decision made to proceed with the section.: Yes Procedure Performed: Repeat and Tubal Ligation Surgeon: Juan Mccarthy MD Anesthesia type: Spinal Description of Procedure/Findings: The patient was taken to the operating room where she was placed in the dorsal supine position with a leftward tilt. The electronic monitor was placed and heart rate was found to be reassuring. She was prepped and draped in the normal sterile fashion, and anesthesia was checked to be adequate. A Pfannensteil skin incision was made with the scalpel and carried through to the underlying layer of fascia with the scalpel. The fascia was incised in the midline and the incision extended laterally with the Sousa scissors. The superior aspect of the fascial incision was then grasped with Nora clamps, elevated, and the underlying rectus muscles dissected off bluntly and with Sousa scissors. Attention was then turned to the inferior aspect of the fascial incision, which in similar fashion was grasped, elevated, and the rectus muscles dissected off.? The rectus muscles were then in the midline, and the peritoneum entered using two Peans and Metzenbaum scissors. The peritoneal incision was extended superiorly and inferiorly with good visualization of the bladder. The bladder blade was then inserted and the vesicouterine peritoneum identified, grasped with a Peon clamp, and entered sharply with the Metzenbaum scissors. The incision was extended laterally and the bladder flap created digitally. With the bladder blade providing retraction and visualization, the lower uterine segment was incised in a transverse fashion with the scalpel. The uterine incision was then extended laterally. The bladder blade was removed and the infant's head was elevated and delivered atraumatically. The remainder of the infant was then delivered without difficulty, and the infant's nose and mouth were suctioned with the bulb suction. The umbilical cord was doubly clamped and cut. The was then handed off to the waiting nursing staff. Specimens then obtained as listed below. The placenta was then removed manually and the uterus was exteriorized and cleared of all clots and debris. The uterine incision was repaired with 0-Monocryl in a running, interlocked fashion. A second layer of the same suture was used to imbricate and obtain hemostasis. A bilateral salpingectomy was performed by grasping the right fallopian tube with a Eucl[place] and transecting the mesosalpinx using the Ligasure device. The tube was removed to the cornua of the uterus. The same procedure was performed on the left side. The posterior cul-de-sac was manually cleared of all clots and debris. The uterus was returned to the abdomen. The gutters were then manually cleared of all clots and debris.? The uterine incision was visualized to be hemostatic. The fascia was reapproximated with 0-Vicryl in a running fashion. The subcutaneous tissues were irrigated with warmed normal saline, and hemostasis was assured. The subcutaneous tissue was greater than 2 cm and closed in a running fashion with 2-0 plain gut suture.?The skin was closed with 4-0 monocryl in a running subcuticular stitch. Fundal pressure was applied to express remaining intrauterine clots and debris. The patient tolerated the procedure well. Sponge, lap, and needle counts were correct times three per nursing. The patient was taken to the recovery room in stable condition. Estimated Blood Loss: 360 Pathology: None sent Complications: No immediate complications Condition: Stable Disposition: Floor [place] Baby Date of : 06/22/25 Gestational Age by Date: 38 Infant gender: Female Weight (pounds): 7 Weight (ounces): 8 presentation: vertex position: Left Occiput Posterior Placenta delivery description: Expressed Cord Vessel Description: 3 Vessels and Delayed Cord Clamping
--- NOTE | 2025-06-22 17:27 | PC.NURSE ---
1705.Patient transferred to post room #288 via stretcher bed, at moms bedside in crib. Support person present. Oriented to unit, room, information board, rooming in, admission packet and security measures. Patient verbalizes understanding.
[2025-06-22] MEDS: DOCUSATE SODIUM 100 MG CAPSULE PO (17:51)
[2025-06-22] MEDS: KETOROLAC 15 MG/ML VIAL (*BKC) IV PUSH ×2 (17:51→23:48)
[2025-06-22] MEDS: ACETAMINOPHEN 500 MG TABLET 1000 MG PO ×2 (17:51→23:48)
[2025-06-22] MEDS: SIMETHICONE 80 MG TAB.CHEW PO (17:52)
[2025-06-22] MEDS: DEXTROSE 5%/0.45% SOD CHL 1,000 ML 125 ML IV CONT (20:09)
[2025-06-23 05:29] LABS: Hematocrit 29.3 % (37.0-47.0); Hemoglobin 9.1 g/dL (12.0-15.0); Immature Granulocyte Percent A 0.7 % (0-0.5); Lymphocytes Absolute Auto 1.66 K/mm3 (0.9-3.2); Mean Corpuscular HGB Conc 31.1 g/dl (32-36); Mean Corpuscular Hemoglobin 23.8 pg (26-34); Mean Corpuscular Volume 76.5 fl (80-100); Nucleated Red Blood Cells Absolute Auto 0.000 K/mm3 (0.0-0.012); Nucleated Red Blood Cells Perc 0.0 % (0.0-0.2); Platelet Count Result 147 k/mm3 (150-375); Red Blood Count 3.83 M/mm3 (4.2-5.4); White Blood Count 9.6 K/mm3 (4.5-10.0)
[2025-06-23] MEDS: KETOROLAC 15 MG/ML VIAL (*BKC) IV PUSH (05:48)
[2025-06-23] MEDS: ACETAMINOPHEN 500 MG TABLET 1000 MG PO ×2 (05:49→11:55)
--- NOTE | 2025-06-23 07:05 | WPDANLDNPN2 ---
Anes-Prog Note L&D-Neuraxial Date/Time: 06/23/25 07:05 Neuraxial medications: intrathecal PF morphine Opiod-related complaints: none Patient feedback: Patient satisfied with post-operative pain management.
--- NOTE | 2025-06-23 07:05 | WPDANLDPN2 ---
Anes-Prog Note L&D Date/Time: 06/23/25 07:05 Comfortable throughout: section Neuraxial method: spinal Epidural/Spinal procedure site: clean & non-tender Neuro status: Neuro function grossly intact. Cardiovascular status: normal Respiratory status: normal Airway patency: baseline Mental status: baseline Post-Op hydration status: normal Vital Signs: Last Vital Signs Temp 36.8 C 06/22/25 23:00 Pulse 73 06/22/25 23:00 Resp 16 06/22/25 23:00 BP 125/58 L 06/22/25 23:00 Pulse Ox 97 06/22/25 23:00 O2 Del Method Room Air 06/22/25 19:20 Pain score (VAS): 2 I/O: Intake & Output 06/22/25 06/22/25 06/23/25 15:59 23:59 07:59 Intake Total 1000 Output Total 8294 077 7391 Balance -360 -100 -1000 Patient feedback: Patient satisfied with anesthetic care.
[2025-06-23 08:35] VITALS: BP 125/73; PULSE 66; RESP 18; TEMP 37.1; O2SAT 97
[2025-06-23] MEDS: MULTIVIT/MIN/PREN/FOL AC/IRON TABLET 1 TAB PO (09:01)
[2025-06-23] MEDS: DOCUSATE SODIUM 100 MG CAPSULE PO (09:01)
[2025-06-23] MEDS: SIMETHICONE 80 MG TAB.CHEW PO ×2 (09:02→11:55)
--- NOTE | 2025-06-23 09:54 | P.PNOB_ITS ---
OB - PN: Subj Subjective Date/time seen: 06/23/25 09:54 Interval history: PPD#1 s/p RLTCS and bilateral salpingectomy Doing well, pain controlled Tolerating general diet Voiding without issue Ready for discharge home when baby cleared Formula feeding OB - PN: Obj Data Labs 06/23/25 04:17 Labs: Laboratory Results - last 24 hr 06/23/25 04:17 WBC 9.6 RBC 3.83 L Hgb 9.1 L Hct 29.3 L MCV 76.5 L MCH 23.8 L MCHC 31.1 L RDW 17.6 H Plt Count 147 L MPV 11.2 H Immature Gran % (Auto) 0.7 H Neut % (Auto) 73.9 H Lymph % (Auto) 17.3 L [place] % (Auto) 7.2 Eos % (Auto) 0.7 Baso % (Auto) 0.2 Lymph # (Auto) 1.66 [place] # (Auto) 0.7 H Eos # (Auto) 0.1 Baso # (Auto) 0.0 Abs Immat Gran (auto) 0.07 H Absolute Neuts (auto) 7.1 H Absolute Nucleated RBC 0.000 Nucleated RBC % 0.0 OB - PN A/P Assessment and Plan (1) S/P : Code(s): Z98.891 - History of uterine scar from previous surgery Status: Acute (2) Status post bilateral salpingectomy: Code(s): Z90.79 - Acquired absence of other genital organ(s) Status: Acute Plan day: 1 Plan: routine care Time Spent With Patient Time: Total time spent is greater than 50% in coordination of care (as documented) at patient's floor/unit and/or counseling patient: Review of Systems 2 Review of Systems: All systems reviewed & are unremarkable except as noted in HPI and below Exam 2 Const: General: comfortable and no acute distress O rientation/consciousness: patient oriented x3 Resp: Effort & Inspection: normal respiratory effort GI: Other: soft, nontender, nondistended, incision c/d/i
[2025-06-23] MEDS: IBUPROFEN 600 MG TABLET PO (11:55)
[2025-06-23] MEDS: oxyCODONE HCL (*CRX) 5 MG TAB IR PO (11:56)
--- NOTE | 2025-06-23 12:47 | PC.NURSE ---
Patient instructed on viewing the discharge video Mother & Baby Care, The First Two Weeks. Patient was given the opportunity and encouraged to ask questions. Patient verbalized understanding of information shared and has been given the mother/baby guide for home reference.
--- NOTE | 2025-06-23 15:35 | PM.OBDSVD ---
DS: Admitting Diagnosis Discharge Date 06/23/25 Admitting Diagnosis repeat c section DS: Discharge Diagnosis Discharge Diagnosis (1) Status post bilateral salpingectomy: Code(s): Z90.79 - Acquired absence of other genital organ(s) Status: Acute (2) S/P : Code(s): Z98.891 - History of uterine scar from previous surgery Status: Acute OB - DS: Summary OB Procedures : None OB Procedures Intrapartum: low cervical, transverse and Tubal ligation OB Procedures: : None Peripartum Data Procedures: Procedures Operation Date: 06/22/25 13:30 Actual Procedure Side Surgeon p Repeat Section with Tubal Ligation Not Applicable Juan Mccarthy MD Time Spent with Patient Time attestation: Total time spent providing and/or coordinating discharge services: DS: Data Data Completed and Pending Pending studies at discharge: Pending at discharge 06/22/25 14:08 Surgical [PTH] Routine Labs on day of discharge: Labs from last 24 hours 06/23/25 04:17 WBC 9.6 RBC 3.83 L Hgb 9.1 L Hct 29.3 L MCV 76.5 L MCH 23.8 L MCHC 31.1 L RDW 17.6 H Plt Count 147 L MPV 11.2 H Immature Gran % (Auto) 0.7 H Neut % (Auto) 73.9 H Lymph % (Auto) 17.3 L [place] % (Auto) 7.2 Eos % (Auto) 0.7 Baso % (Auto) 0.2 Lymph # (Auto) 1.66 [place] # (Auto) 0.7 H Eos # (Auto) 0.1 Baso # (Auto) 0.0 Abs Immat Gran (auto) 0.07 H Absolute Neuts (auto) 7.1 H Absolute Nucleated RBC 0.000 Nucleated RBC % 0.0 Discharge Plan Discharge Discharging Clinician: Juan Mccarthy Patient Disposition: Home Activity: may drive after 2 weeks and pelvic rest Diet: regular Discharge Instructions: Education: Mom and Baby Guide Given to: Mother Follow-Up: Call your delivering provider's office for an appointment to be seen in: call for appointment Mom [facility] baby [facility] the follow-up appointment. Appointment Date/Time: June 25, 2025 at 9:00 am What to expect at your follow-up visit: Physical Assessment Call [phone] if you are unable to keep your appointment time. BREAST CARE: * Wear a snug supportive bra. * For engorgement discomfort: Bottle Feeding: * May apply ice packs ABDOMINAL INCISION: (if applicable) * Allow incision to air dry * Do NOT use lotions for powders on your incision * When showering, allow soap and water to run over the incision, but do not wash incision EPISIOTOMY/PERINEAL CARE: * Until bleeding stops, use your wesley bottle after urinating * Change your pad frequently throughout the day * No tub baths until seen by your physician - You may shower ACTIVITY: * Rest as much as possible. * Do not exercise or lift anything heavier than your baby (such as laundry or other children.) * Avoid stairs or driving as much as possible. * Do not put anything into the vagina. No douching, tampons, or sexual activity until seen by physician. NOTIFY PHYSICIAN IF YOU HAVE ANY QUESTIONS OR IF ANY OF THE FOLLOWING SYMPTOMS OCCUR: * If your incision becomes red, swollen, or more painful than what you have experienced in the hospital. * If your vaginal bleeding becomes foul smelling. * If your vaginal bleeding becomes more heavy than a period or if your bleeding changes from pink to bright red. However, you may pass an occasional walnut-sized clot once or twice for the first week . * If you experience a sharp, shooting pain in you calves. * If you discover a hard, reddened area on your breast or if you experience flu-like symptoms. DIET: * Eat regular, well-balanced meals. * Drink plenty of fluids daily. If , drink to thirst. Patient Language: Slovenian Stand Alone Forms: General Discharge Information Follow-up/Referrals: Juan Mccarthy MD [Physician, BINDING MACHINE OPERATOR] - Call for Appointment Discharge Medications: Discontinued (DME) blood-glucose meter [Contour Plus Blue Meter] Misc MISCELLANEOUS (DME) Contour Plus Test Strip Strip MISCELLANEOUS levothyroxine 88 mcg tablet 88 mcg albuterol sulfate 90 mcg/actuation HFA aerosol inhaler 2 puff INHALATION QID PRN (Reason: shortness of breath or wheezing) Qty: 8.5 0RF fluticasone propionate [Flonase Allergy Relief] 50 mcg/actuation spray,suspension 2 spray NASAL DAILY 14 Days Qty: 15.8 0RF Rx Instructions: administer into each nostril fluoxetine 20 mg capsule 20 mg PO DAILY Patient Comments: ... insulin glargine [Lantus U-100 Insulin] 100 unit/mL solution 5 unit subcut QPM Date of admission: 06/22/25 11:21 Primary Care Provider: Monet Torres Admitting Provider: Juan Mccarthy Attending physician on admission: Juan Mccarthy Condition: Stable
[2025-06-23] MEDS: LIDOCAINE 5% PATCH 1 PATCH TRANSDERM (15:49)
[2025-06-23] MEDS: oxyCODONE HCL (*CRX) 5 MG TAB IR 10 MG PO (15:49)
== END 2025-06-23 16:05 | disposition home or self-care (01) | DRG 784 ==
LOC: ANHLDR 11:27 → ANHOB2 16:52
PROVIDERS: Admitting Provider Obstetrics & Gynecology; PCP Family Medicine; Visit Provider Obstetrics & Gynecology
PROC: 10D00Z1 Extraction of Products of Conception, Low, Open Approach (ICD-10-PCS; CPT 59514; principal; 2025-06-22 13:30)
DX: O34.211 Maternal care for low transverse scar from previous cesarean delivery (principal); O10.92 Unspecified pre-existing hypertension complicating childbirth; Z37.0 Single live birth; Z3A.38 38 weeks gestation of pregnancy; O24.429 Gestational diabetes mellitus in childbirth, unspecified control; Z30.2 Encounter for sterilization; O24.424 Gestational diabetes mellitus in childbirth, insulin controlled; O99.214 Obesity complicating childbirth
CPT/HCPCS: 36415; 85025; 88302; J0690; A9270; J1200; J1885; J2371; J2405; J2590; J2704; J7120